=== PATIENT | female | born 1955 | race Two or more races ===

== ENCOUNTER 2020-07-10 15:55 | Emergency (ER) | payer MEDICARE, SELFPAY ==
[2020-07-10 16:18] VITALS: BP 149/84; PULSE 81; RESP 16; TEMP 36.9; O2SAT 99; BMI 22.6
--- NOTE | 2020-07-10 20:32 | CT_ITS ---
EXAMINATION: CT HEAD WITHOUT CONTRAST CLINICAL INFORMATION: Headache COMPARISON: CT head 09/10/2011 TECHNIQUE: Contiguous axial imaging was performed from the skull base to vertex without intravenous administration of contrast. Coronal and sagittal reformatted images are performed at the CT scanner This CT examination was performed using dose optimization techniques as appropriate, variously including the following: *Automated exposure control *Adjustment of mA and/or kV according to patient size (this includes techniques or standardized protocols for targeted exams where dose is matched to indication/reason for exam; i.e. extremities or head) *Use of iterative reconstruction technique DLP: 622 mGy-cm FINDINGS: There is no evidence of acute intracranial hemorrhage or territorial infarction. No abnormal mass effect or midline shift is seen. Herrera to white matter differentiation is well preserved. No extra-axial fluid collections are identified. The ventricles are normal in size. There is no abnormal attenuation within the brain parenchyma. The osseous structures and soft tissues are normal. The mastoid air cells and visualized portions of the paranasal sinuses are well aerated. CT/CT head/brain wo con IMPRESSION: No acute intracranial pathology.
--- NOTE | 2020-07-10 20:32 | XR_ITS ---
EXAMINATION: XR CHEST PORTABLE CLINICAL INFORMATION: 64-year-old female patient with chest pain. COMPARISON: Chest x-ray on 08/29/2019. (Normal). TECHNIQUE: AP portable semierect view of the chest was obtained. The time of examination was 8:40 PM. FINDINGS: The heart is normal in size. Lungs are clear showing no evidence of congestion or edema. No pleural effusion is seen. There is some thoracic scoliosis. XR/XR chest 1V IMPRESSION: No acute disease in the chest.
--- NOTE | 2020-07-10 20:33 | ECG_ITS ---
Test Reason : CP Blood Pressure : / mmHG Vent. Rate : 062 BPM Atrial Rate : 062 BPM P-R Int : 174 ms QRS Dur : 078 ms QT Int : 438 ms P-R-T Axes : 063 011 026 degrees QTc Int : 444 ms Normal sinus rhythm Low voltage QRS Normal ECG when compared to EKG of 08/29/19 no significant change Referred By: Barbra Small Electronically Signed By:ALBER JAMES MD
--- NOTE | 2020-07-10 20:36 | ED.GENADULT ---
HPI - General Adult General Chief complaint: General Medical Stated complaint: arm and leg numbness head pain Time Seen by Provider: 07/10/20 20:13 History of Present Illness HPI narrative: Patient is a 64-year-old female presents today with having chest pain that is on the left chest 1-2 seconds sharp. Patient denies any history of travel. No leg pain. No history of blood clots. No history of clotting disorder. Patient denies any history of smoking, diabetes, hypertension, mi, family history of [place]. Also complaining of a alters sensation numbness over the left arm more so in the thumb side. Also having numbness deep inside the left leg. Patient denies any difficulty ambulating. Denies any change in speech. No numbness in the head. Patient did have a mild headache that is diffuse. Denies any recent travel. No coughing or congestion or upper respiratory symptoms. No diaphoresis. patient's chest pain not associated with any shortness of breath. Related Data Allergies Allergy/AdvReac Type Severity Reaction Status Date / Time No Known Allergies Allergy Unverified 05/16/20 18:00 Review of Systems Review of Systems: No fever no chills no coughing or congestion or upper respiratory symptoms Constitutional: No Weight loss, No Fever, No Chills, No Night Sweats, No Fatigue, No Malaise ENT/Mouth: No Hearing loss, No Ear Pain, No Nasal Congestion, No Sinus Pain, No Hoarseness, No sore throat, No Rhinorrhea, No Swallowing Difficulty Eyes: No Eye Pain, No Swelling, No Redness, No Foreign Body, No Discharge, No Vision Changes Cardiovascular: positiveChest Pain, No SOB, No Dyspnea on Exertion, No Orthopnea, No Edema, No Palpitations Respiratory: No Cough, No Sputum, No Wheezing, No Smoke Exposure, No Dyspnea Gastrointestinal: No Nausea, No Vomiting, No Diarrhea, No Constipation, No abdominal Pain, No Hematochezia, No Melena Genitourinary: no irregular bleeding, No Dysuria, No Urinary Frequency, No Hematuria, No Urinary Incontinence, No Urgency, No Flank Pain, No Urinary Flow Changes, No Hesitancy Musculoskeletal: No joint pain, No Myalgias, No Joint Swelling Skin: No Skin Lesions, No rash Neuro: No Weakness, No Numbness, No Paresthesias, No Loss of Consciousness, No Dizziness, No Headache Psych: No Anxiety/Panic, No Depression, No SI/HI/AH/VH, No Social Issues, Heme/Lymph: No Bruising, No Bleeding,No Lymphadenopathy Endocrine: No Polyuria, No Polydipsia, No Temperature Intolerance [facility] Past Medical History Attestation statement: The following information was validated with the patient. Medical History Tachycardia Social History Social History Advance Directives: No Advance Directives Information Provided: Yes Physical Exam Vital Signs: Vital Signs: Last Vital Signs Temp 98.5 F 07/10/20 16:18 Pulse 63 07/10/20 22:28 Resp 16 07/10/20 22:28 BP 123/71 07/10/20 22:28 Pulse Ox 99 07/10/20 22:28 Body Mass Index 22.6 Appearance: Alert. Oriented X3. No acute distress. Eyes: Pupils equal, round and reactive to light. ENT: Pharynx normal. Neck: Normal inspection. Neck supple. No lymph nodes noted. No crepitus CVS: Normal heart rate and rhythm. Pulses normal. Normal S1 and S2 Respiratory: No respiratory distress. Breath sounds normal. No Wheezing. No rales Abdomen: Soft and nontender. No rigidity. No distention. good BS x4 Skin: Skin warm and dry. Normal skin color. Normal skin turgor. Extremities: No lower extremity edema. Neurovascular intact to all extremities. No Lacerations. No Rash Neuro: Oriented X 3. No motor deficit. No sensory deficit. Moving all extermities. No slurred speech. NIH stroke scale is 0. Medical Decision Making MDM Narrative Medical decision making narrative: Patient's chest pain atypical for ACS. 1-2 seconds. Nonspecific. Patient's cardiac enzyme was negative. Heart score is less than 3 making ACS unlikely. Patient's D-dimer less than 200 unlikely to be secondary to PE. CT scan of the head was grossly negative for any acute evidence of bleeding. No gross evidence of ischemia. Patient's pain atypical exam normal and IH score is 0. Will have patient follow-up for her chest pain. Patient's chest x-ray showed no evidence of pneumonia, pneumothorax. Will discharge patient home currently in stable condition. Medical Records Medical records reviewed: Yes I reviewed the patient's medical records. Lab Data Lab results reviewed: Yes I reviewed the patient's lab results. Result diagrams: 07/10/20 21:20 07/10/20 21:20 Labs: Lab Results 07/10/20 07/10/20 07/10/20 Range/Units 21:20 21:20 21:20 WBC (4.8-10.8) X10*3/uL RBC (4.20-5.50) X10*6/uL Hgb (12.0-16.0) g/dl Hct (37-47) % MCV (80-98) fL MCH (27.0-33.0) pg MCHC (31.0-35.0) g/dl RDW (11.0-16.0) % Plt Count (160-400) X10*3/uL MPV (9.4-12.3) fL Immature Gran % (Auto) (0.0-0.4) % Neut % (Auto) (45-73) % Lymph % (Auto) (20-40) % [place] % (Auto) (2-11) % Eos % (Auto) (0-4) % Baso % (Auto) (0-2) % Lymph # (Auto) (1.2-4.9) X10*3/uL [place] # (Auto) (0.1-1.2) X10*3/uL Eos # (Auto) (0.0-0.4) X10*3/uL Baso # (Auto) (0.0-0.2) X10*3/uL Abs Immat Gran (auto) (0.00-0.03) X10*3/uL Absolute Neuts (auto) (2.0-8.3) X10*3/uL Absolute Nucleated RBC (0.0-0.012) X10*3/uL Nucleated RBC % (auto) (0.0-0.2) /100WBC PT 12.1 (10.8-13.0) SEC INR 1.0 (0.9-1.1) D-Dimer < 200 NG/ML Sodium (135-145) mmol/L Potassium (3.3-5.1) mmol/l Chloride (96-108) mmol/L Carbon Dioxide (22-29) mmol/L Anion Gap (12-20) BUN (9-16) mg/dL Creatinine (0.5-1.4) mg/dL Estim Creat Clear Calc Estimated GFR Random Glucose (60-115) mg/dL Calcium (8.4-10.2) mg/dL Magnesium 2.1 (1.6-2.6) mg/dL Total Bilirubin 0.7 (0.0-1.0) mg/dL Direct Bilirubin 0.2 (0.0-0.5) mg/dL AST 14 (5-31) U/L ALT 15 (0-31) U/L Alkaline Phosphatase 53 (39-117) U/L Troponin I High Sens < 3.5 (<3.5-17.0) ng/L Total Protein 7.2 (6.5-8.0) g/dL Albumin 4.9 (3.5-5.0) g/dL 07/10/20 07/10/20 Range/Units 21:20 21:20 WBC 5.9 (4.8-10.8) X10*3/uL RBC 4.15 L (4.20-5.50) X10*6/uL Hgb 12.5 (12.0-16.0) g/dl Hct 37.4 (37-47) % MCV 90.1 (80-98) fL MCH 30.1 (27.0-33.0) pg MCHC 33.4 (31.0-35.0) g/dl RDW 12.9 (11.0-16.0) % Plt Count 273 (160-400) X10*3/uL MPV 9.3 L (9.4-12.3) fL Immature Gran % (Auto) 0.3 (0.0-0.4) % Neut % (Auto) 58.6 (45-73) % Lymph % (Auto) 31.9 (20-40) % [place] % (Auto) 4.9 (2-11) % Eos % (Auto) 3.5 (0-4) % Baso % (Auto) 0.8 (0-2) % Lymph # (Auto) 1.9 (1.2-4.9) X10*3/uL [place] # (Auto) 0.3 (0.1-1.2) X10*3/uL Eos # (Auto) 0.2 (0.0-0.4) X10*3/uL Baso # (Auto) 0.1 (0.0-0.2) X10*3/uL Abs Immat Gran (auto) 0.02 (0.00-0.03) X10*3/uL Absolute Neuts (auto) 3.5 (2.0-8.3) X10*3/uL Absolute Nucleated RBC 0.000 (0.0-0.012) X10*3/uL Nucleated RBC % (auto) 0.0 (0.0-0.2) /100WBC PT (10.8-13.0) SEC INR (0.9-1.1) D-Dimer NG/ML Sodium 142 (135-145) mmol/L Potassium 4.0 (3.3-5.1) mmol/l Chloride 102 (96-108) mmol/L Carbon Dioxide 28 (22-29) mmol/L Anion Gap 16 (12-20) BUN 11 (9-16) mg/dL Creatinine 0.82 (0.5-1.4) mg/dL Estim Creat Clear Calc 64.9 Estimated GFR > 60 Random Glucose 92 (60-115) mg/dL Calcium 9.5 (8.4-10.2) mg/dL Magnesium (1.6-2.6) mg/dL Total Bilirubin (0.0-1.0) mg/dL Direct Bilirubin (0.0-0.5) mg/dL AST (5-31) U/L ALT (0-31) U/L Alkaline Phosphatase (39-117) U/L Troponin I High Sens (<3.5-17.0) ng/L Total Protein (6.5-8.0) g/dL Albumin (3.5-5.0) g/dL ECG Data Interpretation: Sinus heart rate is 60 MA interval, QRS,QT within normal limits is no acute ST segment elevation noted.
[2020-07-10 21:26] LABS: MANUAL DIFF FLAG NO
[2020-07-10 21:27] LABS: Basophils Absolute Auto 0.1 X10*3/uL (0.0-0.2); Basophils Percent Auto 0.8 % (0-2); Eosinophils Absolute Auto 0.2 X10*3/uL (0.0-0.4); Eosinophils Percent Auto 3.5 % (0-4); Hematocrit 37.4 % (37-47); Hemoglobin 12.5 g/dl (12.0-16.0); Imm Gran Abs Auto 0.02 X10*3/uL (0.00-0.03); Imm Gran Pct Auto 0.3 % (0.0-0.4); Lymphocytes Absolute Auto 1.9 X10*3/uL (1.2-4.9); Lymphocytes Percent Auto 31.9 % (20-40); Mean Corpuscular HGB Conc 33.4 g/dl (31.0-35.0); Mean Corpuscular Hemoglobin 30.1 pg (27.0-33.0); Mean Corpuscular Volume 90.1 fL (80-98); Mean Platelet Volume 9.3 fL (9.4-12.3); Monocytes Absolute Auto 0.3 X10*3/uL (0.1-1.2); Monocytes Percent Auto 4.9 % (2-11); Neutrophils Absolute Auto 3.5 X10*3/uL (2.0-8.3); Neutrophils Percent Auto 58.6 % (45-73); Platelet Count 273 X10*3/uL (160-400); Red Blood Count 4.15 X10*6/uL (4.20-5.50); Red Cell Distribution Width 12.9 % (11.0-16.0); White Blood Count 5.9 X10*3/uL (4.8-10.8)
[2020-07-10 21:34] LABS: Prothrombin Time 12.1 SEC (10.8-13.0)
[2020-07-10 21:39] LABS: D Dimer < 200 NG/ML
[2020-07-10 22:07] LABS: Anion Gap 16 (12-20); Blood Urea Nitrogen 11 mg/dL (9-16); Calcium 9.5 mg/dL (8.4-10.2); Carbon Dioxide 28 mmol/L (22-29); Chloride 102 mmol/L (96-108); Creatinine Clr Calc Pharmacy 64.9; Estimated Glomerular Filt Rate > 60; Glucose Random 92 mg/dL (60-115); Sodium 142 mmol/L (135-145)
[2020-07-10 22:08] LABS: Alanine Aminotransferase 15 U/L (0-31); Albumin Level 4.9 g/dL (3.5-5.0); Alkaline Phosphatase 53 U/L (39-117); Aspartate Amino Transferase 14 U/L (5-31); Bilirubin Direct 0.2 mg/dL (0.0-0.5); Bilirubin Total 0.7 mg/dL (0.0-1.0); Magnesium 2.1 mg/dL (1.6-2.6); Total Protein 7.2 g/dL (6.5-8.0)
[2020-07-10 22:15] LABS: Troponin-I High Sensitivity < 3.5 ng/L (<3.5-17.0)
[2020-07-10 22:28] VITALS: BP 123/71; PULSE 63; RESP 16; O2SAT 99
--- NOTE | 2020-07-10 23:30 | ED.GENADULT ---
HPI - General Adult General Chief complaint: General Medical Stated complaint: arm and leg numbness head pain Time Seen by Provider: 07/10/20 20:13 History of Present Illness HPI narrative: Patient well-appearing CT scan the head was grossly negative for any acute evidence of bleeding. No fracture. Patient is neurologically intact. NIH stroke scale was 0. Numbness in the upper extremities more focus on the thumb side of left arm. The lower extremity numbness is more in the middle. Patient claims she is able to ambulate with a normal gait. Has no focal weakness. No change in speech. No change in swallowing eating. Patient was actually texting in the emergency department without any distress. Will discharge patient home. Close follow-up outpatient basis. Question paresthesia. In stable condition Related Data Allergies Allergy/AdvReac Type Severity Reaction Status Date / Time No Known Allergies Allergy Unverified 05/16/20 18:00 [facility] Past Medical History Medical History Tachycardia Social History Social History Smoked in Last 30 Days: No Use of substances other than those prescribed or required for medical reasons: No Advance Directives: No Advance Directives Information Provided: Yes Physical Exam Vital Signs: Vital Signs: Last Vital Signs Temp 98.5 F 07/10/20 16:18 Pulse 63 07/10/20 22:28 Resp 16 07/10/20 22:28 BP 123/71 07/10/20 22:28 Pulse Ox 99 07/10/20 22:28 Body Mass Index 22.6 Medical Decision Making Lab Data Result diagrams: 07/10/20 21:20 07/10/20 21:20 Labs: Lab Results 07/10/20 07/10/20 07/10/20 Range/Units 21:20 21:20 21:20 WBC (4.8-10.8) X10*3/uL RBC (4.20-5.50) X10*6/uL Hgb (12.0-16.0) g/dl Hct (37-47) % MCV (80-98) fL MCH (27.0-33.0) pg MCHC (31.0-35.0) g/dl RDW (11.0-16.0) % Plt Count (160-400) X10*3/uL MPV (9.4-12.3) fL Immature Gran % (Auto) (0.0-0.4) % Neut % (Auto) (45-73) % Lymph % (Auto) (20-40) % [place] % (Auto) (2-11) % Eos % (Auto) (0-4) % Baso % (Auto) (0-2) % Lymph # (Auto) (1.2-4.9) X10*3/uL [place] # (Auto) (0.1-1.2) X10*3/uL Eos # (Auto) (0.0-0.4) X10*3/uL Baso # (Auto) (0.0-0.2) X10*3/uL Abs Immat Gran (auto) (0.00-0.03) X10*3/uL Absolute Neuts (auto) (2.0-8.3) X10*3/uL Absolute Nucleated RBC (0.0-0.012) X10*3/uL Nucleated RBC % (auto) (0.0-0.2) /100WBC PT 12.1 (10.8-13.0) SEC INR 1.0 (0.9-1.1) D-Dimer < 200 NG/ML Sodium (135-145) mmol/L Potassium (3.3-5.1) mmol/l Chloride (96-108) mmol/L Carbon Dioxide (22-29) mmol/L Anion Gap (12-20) BUN (9-16) mg/dL Creatinine (0.5-1.4) mg/dL Estim Creat Clear Calc Estimated GFR Random Glucose (60-115) mg/dL Calcium (8.4-10.2) mg/dL Magnesium 2.1 (1.6-2.6) mg/dL Total Bilirubin 0.7 (0.0-1.0) mg/dL Direct Bilirubin 0.2 (0.0-0.5) mg/dL AST 14 (5-31) U/L ALT 15 (0-31) U/L Alkaline Phosphatase 53 (39-117) U/L Troponin I High Sens < 3.5 (<3.5-17.0) ng/L Total Protein 7.2 (6.5-8.0) g/dL Albumin 4.9 (3.5-5.0) g/dL 07/10/20 07/10/20 Range/Units 21:20 21:20 WBC 5.9 (4.8-10.8) X10*3/uL RBC 4.15 L (4.20-5.50) X10*6/uL Hgb 12.5 (12.0-16.0) g/dl Hct 37.4 (37-47) % MCV 90.1 (80-98) fL MCH 30.1 (27.0-33.0) pg MCHC 33.4 (31.0-35.0) g/dl RDW 12.9 (11.0-16.0) % Plt Count 273 (160-400) X10*3/uL MPV 9.3 L (9.4-12.3) fL Immature Gran % (Auto) 0.3 (0.0-0.4) % Neut % (Auto) 58.6 (45-73) % Lymph % (Auto) 31.9 (20-40) % [place] % (Auto) 4.9 (2-11) % Eos % (Auto) 3.5 (0-4) % Baso % (Auto) 0.8 (0-2) % Lymph # (Auto) 1.9 (1.2-4.9) X10*3/uL [place] # (Auto) 0.3 (0.1-1.2) X10*3/uL Eos # (Auto) 0.2 (0.0-0.4) X10*3/uL Baso # (Auto) 0.1 (0.0-0.2) X10*3/uL Abs Immat Gran (auto) 0.02 (0.00-0.03) X10*3/uL Absolute Neuts (auto) 3.5 (2.0-8.3) X10*3/uL Absolute Nucleated RBC 0.000 (0.0-0.012) X10*3/uL Nucleated RBC % (auto) 0.0 (0.0-0.2) /100WBC PT (10.8-13.0) SEC INR (0.9-1.1) D-Dimer NG/ML Sodium 142 (135-145) mmol/L Potassium 4.0 (3.3-5.1) mmol/l Chloride 102 (96-108) mmol/L Carbon Dioxide 28 (22-29) mmol/L Anion Gap 16 (12-20) BUN 11 (9-16) mg/dL Creatinine 0.82 (0.5-1.4) mg/dL Estim Creat Clear Calc 64.9 Estimated GFR > 60 Random Glucose 92 (60-115) mg/dL Calcium 9.5 (8.4-10.2) mg/dL Magnesium (1.6-2.6) mg/dL Total Bilirubin (0.0-1.0) mg/dL Direct Bilirubin (0.0-0.5) mg/dL AST (5-31) U/L ALT (0-31) U/L Alkaline Phosphatase (39-117) U/L Troponin I High Sens (<3.5-17.0) ng/L Total Protein (6.5-8.0) g/dL Albumin (3.5-5.0) g/dL Discharge Plan Discharge Clinical Impression: Chest pain, Arm paresthesia, left Patient Disposition: Home, Self-Care Instructions: Chest Pain (ED), Paresthesia (ED) Referrals: Jordan Montesinos MD [Primary Care Provider] - 2 days Interventions: ED Discharge Assessment Last Done: 07/10/20 23:35 Discharge Date/Time: 07/10/20 23:41 Print Language: Indonesian
== END 2020-07-10 23:41 | disposition home or self-care (01) ==
PROVIDERS: Emergency Provider Emergency Medicine Emergency Medical Services; PCP Internal Medicine
DX: R20.0 Anesthesia of skin (principal); R51.9 Headache, unspecified; M79.602 Pain in left arm
CPT/HCPCS: 36415; 70450; 71045; 80048; 80076; 83735; 84484; 85025; 85379; 85610; 93005; 99284

== ENCOUNTER 2020-07-15 11:44 | Emergency (ER) | payer MEDICARE, SELFPAY ==
--- NOTE | 2020-07-15 | ECG_ITS ---
Test Reason : CP Blood Pressure : / mmHG Vent. Rate : 074 BPM Atrial Rate : 074 BPM P-R Int : 166 ms QRS Dur : 084 ms QT Int : 396 ms P-R-T Axes : 066 -03 050 degrees QTc Int : 439 ms Normal sinus rhythm Normal ECG When compared with ECG of 10-JUL-2020 21:13, No significant change was found Referred By: Generic ED Physician Electronically Signed By:ALBER JAMES MD
[2020-07-15 12:00] VITALS: BP 104/59; PULSE 70; RESP 18; TEMP 36.9; O2SAT 99; BMI 24.0
--- NOTE | 2020-07-15 12:11 | ED.CHESTPAIN ---
HPI - Chest Pain General Chief Complaint: Chest Pain Stated Complaint: CP X'S 8 DAYS ON /OFF, SEEN REC FOR SAME Time Seen by Provider: 07/15/20 12:11 Source: patient Mode of arrival: ambulatory Limitations: no limitations History of Present Illness HPI narrative: 64-year-old primarily Emirati-speaking female with history of hyperlipidemia, chronic back pain in the setting of degenerative disc disease/osteoarthritis according to the patient as well as chronic neck pain, anemia who reports today she has been having left-sided chest pain which radiates to the left arm stays she was seen left arm ?tingling sensation 5 started in the left chest today she spoke to a friend and told that it could be something serious going on and this very anxious and came in for this. She denies any lower extremity swelling or pain. No headache. Does have history of chronic of back pain and neck pain which she reports she sees her GP for and PT. no recent URI symptoms, cough or fever. MD complaint: chest pain and chest discomfort Prior episodes: Yes Onset: during rest Pain location: left chest Pain radiation: left arm Severity: mild Quality: aching Relieving factors: rest Exacerbating factors: palpation and movement Treatment prior to arrival: none Risk Factors Coronary artery disease risk factors: hyperlipidemia Thoracic aortic dissection risk factors: none Related Data Previous Rx's Medication Instructions Recorded cyclobenzaprine 5 mg PO TID PRN #20 tab 07/15/20 prednisone 40 mg PO DAILY 5 Days #10 tab 07/15/20 Allergies Allergy/AdvReac Type Severity Reaction Status Date / Time No Known Allergies Allergy Unverified 05/16/20 18:00 Review of Systems Review of Systems: Constitutional: No Weight loss, No Fever, No Chills, No Night Sweats, No Fatigue, No Malaise ENT/Mouth: No Hearing loss, No Ear Pain, No Nasal Congestion, No Sinus Pain Eyes: No Eye Pain, No Swelling, No Redness, No Foreign Body, No Discharge, No Vision Changes Cardiovascular: + Chest Pain, No SOB, No Dyspnea on Exertion, No Orthopnea, No Edema, No Palpitations Respiratory: No Cough, No Sputum, No Wheezing, No Smoke Exposure, No Dyspnea Gastrointestinal: No Nausea, No Vomiting, No Diarrhea, No Constipation, No abdominal Pain, No Hematochezia, No Melena Genitourinary: no irregular bleeding, No Dysuria, No Urinary Frequency, No Hematuria, No Urinary Incontinence, No Urgency, No Flank Pain Musculoskeletal: No joint pain, No Myalgias, No Joint Swelling Skin: No Skin Lesions, No rash Neuro: No Weakness, No Numbness, +left side Paresthesias, No Loss of Consciousness, No Dizziness, No Headache Psych: No Anxiety/Panic, No Depression Heme/Lymph: No Bruising, No Bleeding,No Lymphadenopathy Endocrine: No Polyuria, No Polydipsia, No Temperature Intolerance Yes all other systems are reviewed and are negative [facility] Past Medical History Medical History (Updated 07/15/20 @ 14:55 by Miguel Hahn NP) Herniated disc Tachycardia Social History Social History Alcohol intake: never Smoking Status: Heavy tobacco smoker Smoked in Last 30 Days: No Use of substances other than those prescribed or required for medical reasons: No Any prior treatment program specific to substance use: No Advance Directives: No Advance Directives Information Provided: No Physical Exam Vital Signs: Vital Signs: Last Vital Signs Temp 98.5 F 07/15/20 12:00 Pulse 88 07/15/20 14:00 Resp 15 07/15/20 14:00 BP 100/68 07/15/20 14:00 Pulse Ox 98 07/15/20 14:00 Body Mass Index 24.0 Reviewed Const: General: cooperative and healthy appearing; No acute distress or intoxicated appearing Nutritional Appearance: average body habitus Orientation/consciousness: patient oriented x3 HENMT: Head: Yes normal to inspection Ears: hearing grossly normal bilaterally Eyes: General: appearance normal, both eyes and all related structures Visual Bruno: normal visual burno by confrontation Pupils: Equal, round and reactive pupils present Neck: Neck: Yes normal visual inspection, No positive Brudzinski's sign, No positive Kernig's sign and No tender Thyroid: Thyroid normal 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 ) Resp: Effort & Inspection: normal respiratory effort Cardio: Jugular venous distension: no JVD Rate: regular rate GI: Inspection: Yes normal to inspection Percussion: Yes normal to percussion Auscultation: normal bowel sounds : General: Yes no CVA tenderness Back/Spine/Pelvis: Back: no CVA tenderness Skin: General skin exam: no rashes or lesions noted Neuro: Other: NIH score 0, stroke scale negative General: patient oriented x3 Cranial nerves: Yes CN's II-XII intact bilaterally, Yes Facial sensation intact/muscles of mastication intact and Yes Equal, round and reactive pupils present Cognition (Neuro): normal cognition Gait exam (Neuro): Normal gait present Motor exam (neuro): 5/5 motor strength present throughout and Normal motor muscle tone present throughout Extrem: General: Yes normal to inspection MDM - Chest Pain Differential Diagnosis Differential diagnosis: Likely atypical chest pain, costochondritis and chest pain; Unlikely fracture of rib, pneumothorax, stable angina, unstable angina pectoris, st elevation myocardial infarction and biliary colic Medical Records Data Attestation: I reviewed the patient's medical records. Lab Data Attestation: I reviewed the patient's lab results. Result diagrams: 07/15/20 12:57 07/15/20 12:57 Labs: Lab Results 07/15/20 07/15/20 07/15/20 Range/Units 12:57 12:57 12:57 WBC 4.1 L (4.8-10.8) X10*3/uL RBC 4.09 L (4.20-5.50) X10*6/uL Hgb 12.4 (12.0-16.0) g/dl Hct 36.9 L (37-47) % MCV 90.2 (80-98) fL MCH 30.3 (27.0-33.0) pg MCHC 33.6 (31.0-35.0) g/dl RDW 13.1 (11.0-16.0) % Plt Count 253 (160-400) X10*3/uL MPV 9.8 (9.4-12.3) fL Immature Gran % (Auto) 0.5 H (0.0-0.4) % Neut % (Auto) 57.6 (45-73) % Lymph % (Auto) 29.7 (20-40) % [place] % (Auto) 5.9 (2-11) % Eos % (Auto) 5.1 H (0-4) % Baso % (Auto) 1.2 (0-2) % Lymph # (Auto) 1.2 (1.2-4.9) X10*3/uL [place] # (Auto) 0.2 (0.1-1.2) X10*3/uL Eos # (Auto) 0.2 (0.0-0.4) X10*3/uL Baso # (Auto) 0.1 (0.0-0.2) X10*3/uL Abs Immat Gran (auto) 0.02 (0.00-0.03) X10*3/uL Absolute Neuts (auto) 2.4 (2.0-8.3) X10*3/uL Absolute Nucleated RBC 0.000 (0.0-0.012) X10*3/uL Nucleated RBC % (auto) 0.0 (0.0-0.2) /100WBC Sodium 140 (135-145) mmol/L Potassium 4.4 (3.3-5.1) mmol/l Chloride 105 (96-108) mmol/L Carbon Dioxide 27 (22-29) mmol/L Anion Gap 12 (12-20) BUN 12 (9-16) mg/dL Creatinine 0.84 (0.5-1.4) mg/dL Estim Creat Clear Calc 58.4 Estimated GFR > 60 Random Glucose 104 (60-115) mg/dL Calcium 9.4 (8.4-10.2) mg/dL Magnesium 2.1 (1.6-2.6) mg/dL Total Bilirubin 0.7 (0.0-1.0) mg/dL AST 15 (5-31) U/L ALT 16 (0-31) U/L Alkaline Phosphatase 48 (39-117) U/L Troponin I High Sens < 3.5 (<3.5-17.0) ng/L Total Protein 7.0 (6.5-8.0) g/dL Albumin 4.8 (3.5-5.0) g/dL TSH 1.17 (0.32-4.0) uIU/mL Workup reviewed from previous visit 5 days ago she had a negative tropes as well as negative D-dimer and essentially stable workup. History of chronic neck pain, chronic back pain history of these paresthesias in the past well documented on her other visits dating back to 2017 18 19, this seems chronic in nature. Workup overall stable here repeat troponin negative labs overall stable. She has no focal neurological findings. I do suspect component of anxiety. She will follow-up with her primary care doctor given the radiculopathy can consider MRI on a nonemergent basis. Findings reviewed in detail and agreeable. ABG Data Attestation: I personally reviewed and interpreted this ABG as follows: Discharge Plan Discharge Clinical Impression: Radiculopathy affecting upper extremity Chest pain Qualifiers: Chest pain type: precordial pain Qualified Code(s): R07.2 - Precordial pain Patient Disposition: Home, Self-Care Instructions: Cervical Radiculopathy (ED), Noncardiac Chest Pain (ED), Anxiety (ED) Prescriptions: New prednisone 20 mg tablet 40 mg PO DAILY 5 Days Qty: 10 RF: 0 cyclobenzaprine 10 mg tablet 5 mg PO TID PRN (Reason: muscle spasm) Qty: 20 RF: 0 Referrals: Physician,Unknown [Primary Care Provider] - 1 week (Your primary care doctor at the [facility] ) Interventions: ED Discharge Assessment Last Done: 07/15/20 15:11 Discharge Date/Time: 07/15/20 15:12
[2020-07-15 12:59] VITALS: PULSE 72
[2020-07-15 13:03] LABS: MANUAL DIFF FLAG NO
[2020-07-15 13:23] LABS: Basophils Absolute Auto 0.1 X10*3/uL (0.0-0.2); Basophils Percent Auto 1.2 % (0-2); Eosinophils Absolute Auto 0.2 X10*3/uL (0.0-0.4); Eosinophils Percent Auto 5.1 % (0-4); Hematocrit 36.9 % (37-47); Hemoglobin 12.4 g/dl (12.0-16.0); Imm Gran Abs Auto 0.02 X10*3/uL (0.00-0.03); Imm Gran Pct Auto 0.5 % (0.0-0.4); Lymphocytes Absolute Auto 1.2 X10*3/uL (1.2-4.9); Lymphocytes Percent Auto 29.7 % (20-40); Mean Corpuscular HGB Conc 33.6 g/dl (31.0-35.0); Mean Corpuscular Hemoglobin 30.3 pg (27.0-33.0); Mean Corpuscular Volume 90.2 fL (80-98); Mean Platelet Volume 9.8 fL (9.4-12.3); Monocytes Absolute Auto 0.2 X10*3/uL (0.1-1.2); Monocytes Percent Auto 5.9 % (2-11); Neutrophils Absolute Auto 2.4 X10*3/uL (2.0-8.3); Neutrophils Percent Auto 57.6 % (45-73); Platelet Count 253 X10*3/uL (160-400); Red Blood Count 4.09 X10*6/uL (4.20-5.50); Red Cell Distribution Width 13.1 % (11.0-16.0); White Blood Count 4.1 X10*3/uL (4.8-10.8)
[2020-07-15 13:33] LABS: Alanine Aminotransferase 16 U/L (0-31); Albumin Level 4.8 g/dL (3.5-5.0); Alkaline Phosphatase 48 U/L (39-117); Anion Gap 12 (12-20); Aspartate Amino Transferase 15 U/L (5-31); Bilirubin Total 0.7 mg/dL (0.0-1.0); Blood Urea Nitrogen 12 mg/dL (9-16); Calcium 9.4 mg/dL (8.4-10.2); Carbon Dioxide 27 mmol/L (22-29); Chloride 105 mmol/L (96-108); Creatinine Clr Calc Pharmacy 58.4; Estimated Glomerular Filt Rate > 60; Glucose Random 104 mg/dL (60-115); Magnesium 2.1 mg/dL (1.6-2.6); Potassium 4.4 mmol/l (3.3-5.1); Sodium 140 mmol/L (135-145)
[2020-07-15 13:39] LABS: Troponin-I High Sensitivity < 3.5 ng/L (<3.5-17.0)
[2020-07-15 13:54] LABS: Thyroid Stimulating Hormone 1.17 uIU/mL (0.32-4.0)
[2020-07-15 14:00] VITALS: BP 100/68; PULSE 88; RESP 15; O2SAT 98
--- NOTE | 2020-07-15 14:02 | XR_ITS ---
EXAMINATION: XR CHEST CLINICAL INFORMATION: Chest wall pain COMPARISON: 07/10/2020 TECHNIQUE: Frontal view of the chest was obtained. FINDINGS: Cardiac leads overlie the chest. The lungs are well expanded. There is no focal consolidation, edema, or effusion. No pneumothorax. The cardiomediastinal silhouette is within normal limits. No acute osseous abnormality. XR/XR chest 1V IMPRESSION: No acute pulmonary finding.
== END 2020-07-15 15:12 | disposition home or self-care (01) ==
PROVIDERS: Nurse Practitioner Primary Care; Emergency Provider Emergency Medicine
DX: M54.10 Radiculopathy, site unspecified (principal); R07.2 Precordial pain; M79.602 Pain in left arm; F17.200 Nicotine dependence, unspecified, uncomplicated; Z71.6 Tobacco abuse counseling; Z79.899 Other long term (current) drug therapy
CPT/HCPCS: 36415; 71045; 80053; 83735; 84443; 84484; 85025; 93005; 99283; 99284

== ENCOUNTER 2020-09-17 12:19 | Outpatient (REF) | payer MEDICARE, SELFPAY ==
--- NOTE | 2020-09-17 | MM_ITS ---
EXAMINATION: MM SCREENING DIGITAL BREAST TOMOSYNTHESIS, BILATERAL CLINICAL INFORMATION: Screening. Asymptomatic. The lifetime risk of breast cancer based on the Tyrer-Cuzick Model is 5.0%. COMPARISON: Mammography: April 14, 2019 and studies dating back to August 17, 2012 TECHNIQUE: Digital breast tomosynthesis is performed in both the craniocaudal and mediolateral oblique views along with computer-aided detection (CAD). Synthesized 2D images are generated from the tomosynthesis. Right exaggerated craniocaudal view also performed. FINDINGS: There are scattered areas of fibroglandular density (ACR BI-RADS breast composition Category b). There are no significant masses, abnormal calcifications, or other abnormalities. MM/MM tomosynthesis screening BI IMPRESSION: There are no significant changes from prior study. ASSESSMENT: BI-RADS 1: Negative RECOMMENDATION: Routine annual mammography screening. This patient's information was entered into a reminder system with a target due date for their next mammogram.
== END 2020-09-17 12:20 | disposition home or self-care (01) ==
LOC: HO.MAMMO 12:19
PROVIDERS: PCP Internal Medicine; Visit Provider Internal Medicine
DX: Z12.31 Encounter for screening mammogram for malignant neoplasm of breast (principal)
CPT/HCPCS: 77063; 77067

== ENCOUNTER 2020-12-06 13:57 | Outpatient (REF) | payer MEDICARE, SELFPAY ==
--- NOTE | ~2020-12-06 | MR_ITS ---
EXAMINATION: MR BRAIN WITHOUT CONTRAST CLINICAL INFORMATION: Worsening memory impairment. COMPARISON: Head CT from 07/10/2020. TECHNIQUE: Multiplanar, multisequence imaging of the brain was performed without contrast. FINDINGS: No diffusion abnormalities are identified to suggest an acute or subacute infarct. The ventricles are normal in size. No mass effect or midline shift is seen. No brain parenchymal signal abnormality is noted. No extra-axial fluid collections are seen. The brainstem and cerebellum are normal. The gradient refocused acquisition is normal. The craniovertebral junction, marrow signal, and midline structures are normal. The major intracranial flow voids at the level of the [place] are preserved. The dural venous sinus flow voids are maintained. The mastoid air cells and paranasal sinuses are fairly well aerated. MR/MR head/brain wo con IMPRESSION: Relatively normal MRI of the brain. No acute process.
== END 2020-12-06 13:58 | disposition home or self-care (01) ==
LOC: HO.MRI 13:57
PROVIDERS: Visit Provider Internal Medicine
DX: R41.3 Other amnesia (principal)
CPT/HCPCS: 70551

== ENCOUNTER 2021-01-06 15:49 | Outpatient (REF) | payer MEDICARE, SELFPAY ==
[2021-01-06 17:19] LABS: Erythrocyte Sedimentation Rate 13 MM/HR (0-20)
[2021-01-06 17:24] LABS: Syphilis Screen Nonreactive (Nonreactive)
[2021-01-06 17:36] LABS: Folate 17.2 ng/mL (> or = 4.0); Vitamin B12 592 pg/mL (200-900)
[2021-01-07 08:51] LABS: Lyme Abs Screen <0.90 index
[2021-01-09 13:46] LABS: Anti Nuclear Antibody Screen NEGATIVE (NEGATIVE)
== END 2021-01-06 15:50 | disposition home or self-care (01) ==
LOC: HO.LAB 15:49
PROVIDERS: PCP Internal Medicine; Visit Provider Psychiatry & Neurology Neurology
DX: G93.40 Encephalopathy, unspecified (principal)
CPT/HCPCS: 36415; 82607; 82746; 85652; 86038; 86039; 86617; 86618; 86780

== ENCOUNTER 2021-01-14 10:28 | Outpatient (REF) | payer MEDICARE, SELFPAY ==
--- NOTE | ~2021-01-14 | XR_ITS ---
EXAMINATION: XR CHEST CLINICAL INFORMATION: Cough. COMPARISON: 07/15/2020 TECHNIQUE: Two views of the chest were obtained. FINDINGS: There is no evidence of acute parenchymal disease, pneumothorax, or pleural effusion. Heart normal size. No evidence of pulmonary edema. Mild scoliosis present within the thoracic spine convex right. XR/XR chest 2V IMPRESSION: No acute disease.
== END 2021-01-14 10:29 | disposition home or self-care (01) ==
LOC: HO.XRAY 10:28
PROVIDERS: Absent Provider Internal Medicine; PCP Internal Medicine; Visit Provider Emergency Medicine
DX: R05 Cough (principal)
CPT/HCPCS: 71046

== ENCOUNTER 2021-02-28 11:36 | Outpatient (REF) | payer MEDICARE, SELFPAY ==
--- NOTE | ~2021-02-28 | XR_ITS ---
EXAMINATION: XR CHEST CLINICAL INFORMATION: Chest pain COMPARISON: None TECHNIQUE: 2 views of the chest were obtained. FINDINGS: No significant abnormality is noted involving the heart, lungs, mediastinum, bony thorax or soft tissues. XR/XR chest 2V IMPRESSION: Unremarkable examination.
== END 2021-02-28 11:37 | disposition home or self-care (01) ==
LOC: HO.XRAY 11:36
PROVIDERS: Absent Provider Internal Medicine; PCP Internal Medicine; Visit Provider Emergency Medicine
DX: R07.89 Other chest pain (principal)
CPT/HCPCS: 71046

== ENCOUNTER 2022-01-28 11:02 | Emergency (ER) | payer MEDICARE, SELFPAY ==
--- NOTE | ~2022-01-28 | XR_ITS ---
EXAMINATION: XR LUMBOSACRAL SPINE CLINICAL INFORMATION: Back pain COMPARISON: Lumbar spine 03/13/2020 TECHNIQUE: Three views of the lumbosacral spine. FINDINGS: Lumbar vertebrae have normal height. No fracture or bone destruction. There is marked degenerative spondylosis of the facet joints at L4-L5 and L5-S1. Stable grade 1 anterolisthesis of L4 on L5 due to facet joint disease. This is unchanged since prior study 03/13/2020. There is no spondylolysis. Slight disc height narrowing at L4-L5. This has progressed since prior study 03/13/2020. Remainder of lumbar disc heights are normal. Sacroiliac joints are normal. XR/XR lumbar spine 2-3V IMPRESSION: 1. No acute abnormality. 2. Degenerative spondylosis of lumbar spine. Stable grade 1 anterolisthesis of L4 on L5 due to facet joint disease. 3. Slight disc height narrowing L4-L5. This has progressed since 03/13/2020.
[2022-01-28 11:40] VITALS: BP 152/80; PULSE 85; RESP 16; TEMP 36.9; O2SAT 98; BMI 23.8
--- NOTE | 2022-01-28 13:34 | ED.BACK ---
HPI - Back Pain/Injury General Chief Complaint: Back Pain/Injury Stated Complaint: back pain Time Seen by Provider: 01/28/22 12:45 Source: patient Mode of arrival: ambulatory Limitations: language barrier (Latvian-speaking declined medical affairs director prepared to use her daughter) History of Present Illness HPI Narrative: Patient reports sudden onset of acute on chronic lower back pain 9 days ago. Pain became worse when she stood up from a sitting position on the floor. Pain is across the diffuse lower back but the right is worse than the left and radiates intermittently down the bilateral legs. One week ago she was evaluated at a walk-in clinic and was given a prescription for Flexeril. She is only taking the Flexeril at bedtime in addition to her chronically prescribed Percocet for back pain. She states that she is able to sleep throughout the night without await Cruz. However the morning she does continue to have pain. She is only taking Tylenol during the day but the pain is not tolerable during the day. Denies having any urine testing or imaging done when evaluated 1 week ago. She reports a history of herniated discs in her lower back. Denies fevers, chills, burning with micturition, urinary frequency/urgency/hesitancy, bladder or bowel dysfunction, numbness or tingling of the perineum or bilateral legs. Denies any recent surgical procedures, any known immune compromising conditions, personal history of cancer, or IV drug usage. MD elicited complaint: back pain Related Data Previous Rx's Medication Instructions Recorded cyclobenzaprine 10 mg tablet 5 mg PO TID PRN #20 tab 07/15/20 prednisone 20 mg tablet 40 mg PO DAILY 5 Days #10 tab 07/15/20 Allergies Allergy/AdvReac Type Severity Reaction Status Date / Time No Known Allergies Allergy Unverified 05/16/20 18:00 Review of Systems Review of Systems: Constitutional: No weight loss, fever, chills, weakness or fatigue. HEENT: No visual loss, blurred vision, double vision. No hearing loss, sneezing, congestion, runny nose or sore throat. Skin: No rash or itching. Cardiovascular: No chest pain, chest pressure or chest discomfort. No palpitations or pedal edema. Respiratory: No shortness of breath, cough or sputum production. Gastrointestinal: No anorexia, nausea, vomiting or diarrhea. No abdominal pain or blood in stool. Genitourinary: No burning micturition. No urinary frequency or incontinence. Neurologic: No headache, dizziness, syncope, unilateral weakness, ataxia, numbness or tingling in the extremities. No change in bowel or bladder control. Musculoskeletal: + Back pain as noted in HPI. No joint pain or stiffness. Hematologic: No bleeding or bruising. Lymphatics: No enlarged lymph nodes. Psychiatric:No depression or anxiety. Endocrine: No reports of sweating. No cold or heat intolerance. No polyuria or polydipsia. [facility] Past Medical History Medical History (Updated 01/28/22 @ 16:38 by Liset De Leon CNP) Herniated disc Tachycardia Social History Social History Alcohol intake: never Advance Directives: No Advance Directives Information Provided: No Physical Exam Vital Signs: Vital Signs: Last Vital Signs Temp 98.2 F 01/28/22 15:52 Pulse 94 01/28/22 15:52 Resp 16 01/28/22 15:52 BP 110/67 01/28/22 15:52 Pulse Ox 99 01/28/22 15:52 BMI result Body Mass Index 23.8 Vital signs have been reviewed as normal and appeared to be correct. Blood pressure normal.? Heart rate normal.? Respiration rate normal. Temperature normal.? Oxygen saturation normal. Appearance: Alert.?Oriented to person, place and time. No acute distress.?Normal affect. Eyes: Pupils equal, round and reactive to light.? ENT: Pharynx normal.?? Neck: Normal inspection.? Neck supple.?? CVS: Heart sounds normal. Normal heart rate and rhythm.? Pulses normal; bilateral radial pulses 2+, bilateral posterior tibial/dorsalis pedis pulses 2+.? Respiratory: No respiratory distress.? Lung sounds clear to auscultation bilaterally?? Abdomen: Soft and non-tender. Normoactive bowel sounds. No pulsatile mass.?? Skin: Skin warm and dry.? Normal skin color.? Normal skin turgor.?? Extremities: No lower extremity edema.? No calf ttp? Back: + mild paraspinal muscular tenderness from lumbar region to coccyx. No CVA tenderness. No midline spinal tenderness, step-off's, or deformity. Full ROM intact in bilateral lower extremities. Straight leg test negative / positive on right; Straight leg test negative / positive on left. No rashes, lesions, areas of induration or fluctuance, or signs of infection noted., Neuro: Moves all extremities spontaneously. 5/5 strength in hip extension/flexion, abduction, adduction. Sensation to light touch intact bilaterally. Patellar and Achilles reflex 2+ bilaterally. No ataxia, gait normal and steady.. No focal neuro deficits. ( Squat and rise - L4 / Heel walk or dorsiflex - L5 / Toe walk - S1) Course Course Course Narrative: Patient is a 66-year-old female with a past medical history of disc herniation, presenting to the emergency department for evaluation of worsening back pain x9 days. Based on history and physical exam, pain is most consistent with muscular pain, although cannot completely exclude herniated disc. On neurological exam there are no deficits. Not consistent with spinal fracture, spinal infection, epidural abscess, AAA, epidural abscess, or dissection. No high risk past medical history including incontinence, fever, immunosuppresion recent surgery or lumbar puncture, coagulopathy, significant trauma, recent unintentional weight loss, pulsatile mass, history of cancer, history of TB, history of IV drug use that would warrant MRI or CT. Not consistent with pyelonephritis, urinary tract infection, renal calculi, pelvic infection, appendicitis, diverticulitis. On exam no concern for cauda equina syndrome. Patient requesting a lumbar x-ray which reveals no acute abnormality, degenerative spondylosis, facet joint disease, and slight disc height narrowing at L4-L5 that has progressed since prior imaging in 2020. No further imaging is currently indicated at this time. Patient received Valium 2 mg p.o. while in the emergency department as she had a responsible ride home, with some improvement in her pain after taking it, ambulatory with steady gait. Discussed plan for discharge home, advised patient that she may trial the use of Flexeril during the day as well, every 8 hours as needed for her pain, she already has a prescription for 30 tablets therefore will not provide an additional script at this time as she is also prescribed Percocet, advised follow-up with primary care provider, discussed reasons to return back to the emergency department, and patient agreed with plan. MDM - Back Pain/Injury Medical Records Attestation: I reviewed the patient's medical records. Lab Data Attestation: I reviewed the patient's lab results. Labs: Lab Results 01/28/22 Range/Units 14:20 Urine Color YELLOW Urine Appearance HAZY Urine pH 6.0 (5.0-8.0) Ur Specific [place] 1.020 (1.005-1.025) Urine Protein NEG (NEG-TRACE) MG/DL Urine Glucose (UA) NEG (NEG) MG/DL Urine Ketones NEG (NEG) MG/DL Urine Blood TRACE (NEG) Urine Nitrite NEG (NEG) Ur Leukocyte Esterase TRACE H (NEG) Urine RBC 1-4 (0) /HPF Urine WBC 1-4 (0-4) /HPF Ur Squamous Epith Cells 1+ /LPF Urine Bacteria TRACE /LPF Urine Mucus 1+ /LPF Imaging Data XR lumbar spine: Radiologist's impression: XR/XR lumbar spine 2-3V IMPRESSION: ? 1. No acute abnormality. 2. Degenerative spondylosis of lumbar spine. Stable grade 1 anterolisthesis of L4 on L5 due to facet joint disease. 3. Slight disc height narrowing L4-L5. This has progressed since 03/13/2020. Discharge Plan Discharge Clinical Impression: Lumbar radiculopathy Patient Disposition: Home, Self-Care Instructions: Lumbar Radiculopathy (ED), Lower Back Exercises (ED) Additional Instructions: As we discussed, you can trial the Flexeril during the day as well, every 8 hours as needed for pain, it may make you drowsy therefore you should refrain from driving, drinking alcohol while taking this medication. Please contact your primary care provider to schedule follow-up visit within 1 week. You may return to the emergency department any new or worsening symptoms or concerns. [place] discutimos, tambi?n puede probar el Flexeril christine el d?a, cada 8 horas seg?n sea necesario para el dolor, puede causarle somnolencia, por lo tanto, debe abstenerse de conducir, beber alcohol mientras chad scott medicamento. Comun?quese con rivera proveedor de atenci?n primaria para programar abdirahman visita de seguimiento dentro de 1 semana. Puede regresar al departamento de emergencias si presenta s?ntomas o inquietudes nuevos o que empeoran. Prescriptions: No Action prednisone 20 mg tablet 40 mg PO DAILY 5 Days Qty: 10 0RF cyclobenzaprine 10 mg tablet 5 mg PO TID PRN (Reason: muscle spasm) Qty: 20 0RF Print Language: Latvian
[2022-01-28] MEDS: diazePAM 2 MG TABLET PO (13:52)
[2022-01-28 14:27] LABS: Appearance Urine HAZY; Color Urine YELLOW; Glucose Urine UA NEG (NEG); Leukocyte Esterase Urine TRACE (NEG); Nitrite Urine NEG (NEG); UACC Culture Trigger NO; Urine Blood TRACE (NEG); Urine Ketones NEG (NEG); Urine Protein NEG (NEG-TRACE)
[2022-01-28 14:44] LABS: Mucus Urine 1+ /LPF; Squamous Epithelial Cell Urine 1+ /LPF
[2022-01-28 14:45] LABS: Bacteria Urine TRACE /LPF
[2022-01-28 15:52] VITALS: BP 110/67; PULSE 94; RESP 16; TEMP 36.8; O2SAT 99
== END 2022-01-28 17:09 | disposition home or self-care (01) ==
PROVIDERS: Nurse Practitioner Family; Emergency Provider Emergency Medicine; PCP Internal Medicine
DX: M47.26 Other spondylosis with radiculopathy, lumbar region (principal); Z79.891 Long term (current) use of opiate analgesic
CPT/HCPCS: 72100; 81001; 99283

== ENCOUNTER 2022-02-13 12:41 | Outpatient (REF) | payer MEDICARE, SELFPAY ==
--- NOTE | ~2022-02-13 | XR_ITS ---
EXAMINATION: XR CHEST CLINICAL INFORMATION: Diseases of respiratory tract COMPARISON: 02/28/2021 TECHNIQUE: 2 views of the chest were obtained. FINDINGS: No significant abnormality is noted involving the heart, lungs, mediastinum, bony thorax or soft tissues. XR/XR chest 2V IMPRESSION: Unremarkable examination.
[2022-02-13 16:03] LABS: Influenza A PCR NEGATIVE (Negative); Influenza B PCR NEGATIVE (Negative); Resp Syncy Virus RNA Qual PCR NEGATIVE (Negative); SARS COV2 PCR INHOUSE NEGATIVE (Negative)
== END 2022-02-13 12:42 | disposition home or self-care (01) ==
LOC: HO.HMGCX 12:41
PROVIDERS: PCP Internal Medicine; Visit Provider Physician Assistant
DX: Z20.822 Contact with and (suspected) exposure to COVID-19 (principal); J39.9 Disease of upper respiratory tract, unspecified; R09.89 Other specified symptoms and signs involving the circulatory and respiratory systems
CPT/HCPCS: 0241U; 71046

== ENCOUNTER 2022-06-16 12:00 | Outpatient (REF) | payer OTHER, SELFPAY ==
--- NOTE | ~2022-06-16 | XR_ITS ---
EXAMINATION: XR LUMBOSACRAL SPINE CLINICAL INFORMATION: Low back pain COMPARISON: 01/28/2022 and 03/13/2020 TECHNIQUE: Three views of the lumbosacral spine. FINDINGS: The vertebral bodies are normal. The disc spaces are preserved. Posterior facet joint arthropathy is seen at L4/5 with a grade 1 anterolisthesis which is stable compared to prior exams The paraspinal soft tissues are normal. XR/XR lumbar spine 2-3V IMPRESSION: No acute process. Stable posterior facet joint arthropathy with grade 1 anterolisthesis at L4/5
== END 2022-06-16 12:01 | disposition home or self-care (01) ==
LOC: HO.XRAY 12:00
PROVIDERS: Absent Provider Internal Medicine; PCP Internal Medicine; Visit Provider Emergency Medicine
DX: M54.50 Low back pain, unspecified (principal)
CPT/HCPCS: 72100

== ENCOUNTER 2022-07-03 05:50 | Emergency (ER) | payer OTHER, SELFPAY ==
[2022-07-03 05:56] VITALS: BP 141/82; PULSE 89; RESP 17; TEMP 37.2; O2SAT 99; BMI 23.0
--- NOTE | 2022-07-03 07:50 | ED.BACK ---
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 She had xrays since then. has been taking regular medications without relief. NO b/b incontinence, no saddle anesthesia. MD elicited complaint: back pain, back injury and fall Pertinent past history: prior back pain and recent trauma Onset (ago): week(s) (chronic back pain but fell at the beginning of may and it is much worse) Timing: constant Severity: moderate Similar Symptoms Previously: Yes Quality: aching and throbbing Location: lumbar spine Radiation: buttocks and left upper leg Exacerbating factors: movement Relieving factors: none Context: fall Associated symptoms: denies other symptoms Treatments prior to arrival: other medications and prescription analgesics Work related injury: No Related Data Home Medications Medication Instructions Recorded Confirmed oxycodone-acetaminophen 5 mg-325 1 tab PO Q12H PRN severe pain 06/19/22 06/19/22 mg tablet Previous Rx's Medication Instructions Recorded cyclobenzaprine 10 mg tablet 5 mg PO TID PRN muscle spasm #20 07/15/20 tabs prednisone 20 mg tablet 40 mg PO DAILY 5 days #10 tabs 07/15/20 doxycycline hyclate 100 mg capsule 100 mg PO BID 7 days #14 caps 02/13/22 lidocaine 4 % topical patch 1 patch topical DAILY PRN pain #10 06/19/22 (Blue-Emu Lidocaine Patch) ea diclofenac sodium 1 % topical gel 2 g topical QID #100 grams 07/03/22 (Voltaren Arthritis Pain) gabapentin 100 mg capsule 100 mg PO TID #90 caps 07/03/22 lidocaine 5 % topical patch 1 patch topical DAILY #30 ea 07/03/22 prednisone 20 mg tablet 40 mg PO DAILY 4 days #8 tabs 07/03/22 Allergies Allergy/AdvReac Type Severity Reaction Status Date / Time doxycycline Allergy Rash Verified 07/03/22 06:04 tizanidine [From Zanaflex] Allergy Nausea Verified 07/03/22 06:03 Review of Systems Review of Systems: Constitutional : No Weight loss, No Fever, No Chills, ENT/Mouth : No Hearing loss, No Ear Pain, No Nasal Congestion, No Sinus Pain, No Hoarseness, No sore throat, No Rhinorrhea, No Swallowing Difficulty Cardiovascular : No Chest Pain, No SOB Respiratory : No Cough, No Dyspnea Gastrointestinal : No Nausea, No Vomiting, No Diarrhea, No abdominal Pain, No Hematochezia, No Melena Genitourinary : No Dysuria, No Urinary Frequency, No Hematuria, No Urinary Incontinence, Musculoskeletal : positive back pain Skin : No Skin Lesions, No rash Neuro : No Weakness, No Numbness, No Paresthesias, no loss of bowel or bladder incontinence, no saddle anesthesia [facility] Past Medical History Attestation statement: The following information was validated with the patient. Medical History Herniated disc Tachycardia Social History Social History Alcohol intake: never Patient Tobacco Use Status: Never used Tobacco Advance Directives: No Advance Directives Information Provided: Yes Physical Exam Vital Signs: Vital Signs: Last Vital Signs Temp 98.9 F 07/03/22 05:56 Pulse 89 07/03/22 05:56 Resp 17 07/03/22 05:56 BP 141/82 H 07/03/22 05:56 Pulse Ox 99 07/03/22 05:56 O2 Del Method 07/03/22 05:56 BMI result Body Mass Index 23.0 Appearance: Alert. Oriented X3. No acute distress. Eyes: Pupils equal, round and reactive to light. ENT: Pharynx normal. Neck: Normal inspection. Neck supple. CVS: Normal heart rate and rhythm. Pulses normal. Respiratory: No respiratory distress. Breath sounds normal. Abdomen: Soft and nontender. Skin: Skin warm and dry. Normal skin color. Normal skin turgor. Extremities: No lower extremity edema. No calf ttp Neuro: Oriented X 3. No motor deficit. No sensory deficit. SILT inner thigh, 2+ DTR in patella, L5 5/5 bilaterally MDM - Back Pain/Injury MDM Narrative Medical decision making narrative: 66 yo female with hx of chronic back pain made worse by falls here with c/o low back pain seems radicular in nature already had xrays, has pain management appointment in june. patient is [place] intact. Will start on steroids and gabapentin. She has no b/b icontinence or saddle anesthesia no red flags. Discharge Plan Discharge Clinical Impression: Lumbar radiculopathy Patient Disposition: Home, Self-Care Instructions: Lumbar Radiculopathy (ED) Additional Instructions: return to ED for any worsening symptoms or concerns tome todos nash medicamentos habituales. seguimiento con manejo del dolor seg?n lo planeado. Regrese a la jennifer de emergencias por cualquier s?ntoma o inquietud que empeore. tome la prednisona con alimentos. empezar con prednisona el 01/07 Prescriptions: New prednisone 20 mg tablet 40 mg PO DAILY 4 Days Qty: 8 0RF lidocaine 5 % adhesive patch,medicated 1 patch topical DAILY Qty: 30 0RF Rx Instructions: leave on most painful area for up to 12 hrs diclofenac sodium [Voltaren Arthritis Pain] 1 % gel 2 g topical QID Qty: 100 0RF Rx Instructions: apply to single elbow, wrist or hand; for hand includes palm/fingers/back of hand gabapentin 100 mg capsule 100 mg PO TID Qty: 90 0RF No Action prednisone 20 mg tablet 40 mg PO DAILY 5 Days Qty: 10 0RF cyclobenzaprine 10 mg tablet 5 mg PO TID PRN (Reason: muscle spasm) Qty: 20 0RF oxycodone-acetaminophen 5-325 mg tablet 1 tab PO Q12H PRN (Reason: severe pain) lidocaine [Blue-Emu Lidocaine Patch] 4 % adhesive patch,medicated 1 patch topical DAILY PRN (Reason: pain) Qty: 10 0RF doxycycline hyclate 100 mg capsule 100 mg PO BID 7 Days Qty: 14 0RF Print Language: Arabic
[2022-07-03] MEDS: Gabapentin 100 MG CAPSULE 200 MG PO (08:45)
[2022-07-03] MEDS: HYDROmorphone HCl 1 MG/ML SYRINGE IM (08:45)
[2022-07-03] MEDS: predniSONE 20 MG TABLET 40 MG PO (08:45)
[2022-07-03 09:33] VITALS: BP 149/68; PULSE 74; RESP 16
[2022-07-03] MEDS: Ondansetron ODT 4 MG TAB.RAPDIS TRANSLINGU (09:45)
--- NOTE | 2022-07-03 10:08 | PC.NURSE ---
Discharge was delayed due to patient feeling nauseous. Dr Arroyo in to speak with patient. medicated with zofran SL Will watch patient and discharge when feeling slightly better. Daughter at bedside. pt agreeable to plan
--- NOTE | 2022-07-03 13:26 | PC.NURSE ---
1100 PT CONTINUES TO REPORT INTERMITTENT NAUSEA AND DIZZINESS WHEN SHE ATTEMPTS TO STAND. STATES THAT SHE FEELS BETTER WHEN SHE IS LAYING DOWN. DAUGHTER AT BEDSIDE. WILL REMAIN RESTING FOR AWHILE LONGER BP 134/73 P76 SKIN WARM AND DRY
--- NOTE | 2022-07-03 13:28 | PC.NURSE ---
1215: PT LEAVING WITH DAUGHTER WHO CALLED FOR RIDE FOR PATIENT AND HERSELF. PT REPORTS FEELING BETTER. NEUROS INTACT. ALDRIDGE FREELY, GAIT STEADY
== END 2022-07-03 12:15 | disposition home or self-care (01) ==
PROVIDERS: Emergency Provider Emergency Medicine
DX: M54.16 Radiculopathy, lumbar region (principal); M54.50 Low back pain, unspecified
CPT/HCPCS: 96372; 99283; 99284; J1170

== ENCOUNTER 2023-02-16 07:43 | Outpatient (REF) | payer OTHER, SELFPAY ==
--- NOTE | ~2023-02-16 | MM_ITS ---
EXAMINATION: MM SCREENING DIGITAL BREAST TOMOSYNTHESIS, BILATERAL CLINICAL INFORMATION: Screening. Asymptomatic. The lifetime risk of breast cancer based on the Tyrer-Cuzick Model is 3.5%. COMPARISON: Mammography: September 17, 2020 and studies dating back to January 23, 2016 TECHNIQUE: Digital breast tomosynthesis is performed in both the craniocaudal and mediolateral oblique views along with computer-aided detection (CAD). Synthesized 2D images are generated from the tomosynthesis. FINDINGS: There are scattered areas of fibroglandular density (ACR BI-RADS breast composition Category b). There are no significant masses, abnormal calcifications, or other abnormalities. MM/MM tomosynthesis screening BI IMPRESSION: No significant changes from prior exam. ASSESSMENT: BI-RADS 1: Negative RECOMMENDATION: Routine annual mammography screening. This patient's information was entered into a reminder system with a target due date for their next mammogram.
== END 2023-02-16 07:44 | disposition home or self-care (01) ==
LOC: HO.MAMMO 07:43
PROVIDERS: PCP Registered Nurse; Visit Provider Registered Nurse
DX: Z12.31 Encounter for screening mammogram for malignant neoplasm of breast (principal)
CPT/HCPCS: 77063; 77067

== ENCOUNTER 2023-04-01 09:55 | Outpatient (REF) | payer OTHER, SELFPAY ==
[2023-04-10 03:14] LABS: HPV mRNA E6/E7 rflx Not Detected (Not Detected)
== END 2023-04-01 09:56 | disposition home or self-care (01) ==
LOC: HO.HHCLNP 09:55
PROVIDERS: Visit Provider Advanced Practice Midwife
DX: Z12.4 Encounter for screening for malignant neoplasm of cervix (principal); Z11.51 Encounter for screening for human papillomavirus (HPV)
CPT/HCPCS: 87624; 88142

== ENCOUNTER 2023-04-08 12:18 | Outpatient (REF) | payer OTHER, SELFPAY ==
--- NOTE | ~2023-04-08 | MM_ITS ---
EXAMINATION: BONE DENSITOMETRY CLINICAL INDICATION: Menopausal and perimenopausal disorder, unspecified. COMPARISON: This is the patient's baseline examination. TECHNIQUE: Using a [employer] DXA System (software version: 13.1) manufactured by [employer], dual-energy x-ray absorptiometry was performed of the lumbar spine and left hip. The images are of good technical quality. Summary results are attached. FINDINGS: LEFT FEMUR, NECK: BMD 0.964 g/cm2, Z-score 1.1, T-score -0.5, normal. LEFT FEMUR, TOTAL: BMD 1.034 g/cm2, Z-score 1.6, T-score 0.2, normal. AP SPINE L1-L3 (excluding L4): The data of L1-L4 has been changed to exclude the L4 vertebral body, because degenerative sclerosis at this level may cause overestimation of lumbar spine density. BMD 0.999 g/cm2, Z-score 0.3, T-score -1.4, osteopenia. IDENTIFIED RISK FACTORS: Early menopause, secondary osteoporosis. HISTORY OF FRACTURE: None listed. MEDICATIONS: Vitamin D. MM/XR DEXA axial skeleton IMPRESSION: 1. DIAGNOSIS: Osteopenia based on the lowest T-score value of -1.4 in the lumbar spine applying World Health Organization criteria. 2. 10-YEAR FRACTURE RISK PREDICTION, FRAX: Major osteoporotic fracture (clinical spine, forearm, hip or shoulder) 3.9%. Hip fracture 0.2%. 3. Treatment Recommendations: NOF guidelines recommend consideration for treatment in postmenopausal women and men age 50 and older presenting with the following: -A hip or vertebral (clinical or morphometric) fracture. -T-score less than or equal to -2.5 at the femoral neck or spine after appropriate evaluation to exclude secondary causes. -Low bone mass at the hip or spine and a 10-year fracture probability by FRAX of greater than or equal to 3% for hip fracture or greater than or equal to 20% for major osteoporotic fracture based on the [place] adapted WHO algorithm. 4. Other Recommendations: All treatment decisions require clinical judgment and consideration of individual patient factors, including patient preferences, comorbidities, previous drug use, risk factors not captured in the FRAX model (e.g. frailty, falls, vitamin D deficiency, increased bone turnover, interval significant decline in bone density) and possible under or overestimation of fracture risk by FRAX. Additional medical evaluation for secondary cause of low bone mineral density may be appropriate. FUTURE SCAN RECOMMENDATION: People with diagnosed cases of osteoporosis or at high risk for fracture should have regular bone mineral density tests. For patients eligible for Medicare, routine testing is allowed once every 2 years. The testing frequency can be increased to one year for patients who have rapidly progressing disease, those who are receiving or discontinuing medical therapy to restore bone mass, or have additional risk factors.
== END 2023-04-08 12:19 | disposition home or self-care (01) ==
LOC: HO.MAMMO 12:18
PROVIDERS: PCP Registered Nurse; Visit Provider Advanced Practice Midwife
DX: Z13.820 Encounter for screening for osteoporosis (principal); Z78.0 Asymptomatic menopausal state
CPT/HCPCS: 77080

== ENCOUNTER → 2023-04-08 13:00 | Outpatient (BNV) | payer OTHER, SELFPAY | PROVIDERS: PCP Registered Nurse; Visit Provider Radiology Diagnostic Radiology | DX: M85.88 Other specified disorders of bone density and structure, other site (principal) | CPT/HCPCS: 77080 ==

== ENCOUNTER 2023-06-25 10:01 | Outpatient (REF) | payer OTHER, SELFPAY ==
[2023-06-25 15:05] LABS: Estimated Average Glucose 111 mg/dL; Hemoglobin A1c % 5.5 % (<6.0)
[2023-06-25 15:21] LABS: Alanine Aminotransferase 18 U/L (0-31); Albumin Level 4.8 g/dL (3.5-5.0); Alkaline Phosphatase 51 U/L (39-117); Anion Gap 12 (12-20); Aspartate Amino Transferase 15 U/L (5-31); Bilirubin Total 0.7 mg/dL (0.0-1.0); Blood Urea Nitrogen 15 mg/dL (9-16); Calcium 9.9 mg/dL (8.4-10.2); Carbon Dioxide 27 mmol/L (22-29); Chloride 105 mmol/L (96-108); Cholesterol 231 mg/dL (<200); Estimated Glomerular Filt Rate > 60; Glucose Fasting 92 mg/dL (60-99); HDL Cholesterol 50 mg/dL (>40); LDL Cholesterol Calculated 153 mg/dL (<100); Potassium 3.4 mmol/L (3.3-5.1); Sodium 141 mmol/L (135-145); Total Protein 7.4 g/dL (6.5-8.0); Triglycerides 143 mg/dL (<150)
[2023-06-25 15:39] LABS: Vitamin B12 336 pg/mL (200-900)
[2023-06-25 15:42] LABS: TSH reflex Free T4 1.63 uIU/mL (0.32-4.0); Vitamin D 25-OH Total 31.4 ng/mL (>30)
[2023-06-26 03:44] LABS: HIV AB/AG Nonreactive (Nonreactive); HIV Num 1 0.04 S/CO (0.00-0.99)
[2023-06-26 14:43] LABS: HCV RNA PCR Qn <1.18 NOT DETECTED Log IU/mL (NOT DETECTED); HCV RNA PCR Qn <15 NOT DETECTED IU/mL (NOT DETECTED)
[2023-06-28 13:33] LABS: RPR Rapid Plasma Reagin NON-REACTIVE (NON-REACTIVE)
== END 2023-06-25 10:02 | disposition home or self-care (01) ==
LOC: HO.CHCLDS 10:01
PROVIDERS: Visit Provider Registered Nurse
DX: Z00.00 Encounter for general adult medical examination without abnormal findings (principal); E55.9 Vitamin D deficiency, unspecified; E53.8 Deficiency of other specified B group vitamins; E78.5 Hyperlipidemia, unspecified; R94.6 Abnormal results of thyroid function studies; R73.9 Hyperglycemia, unspecified
CPT/HCPCS: 36415; 80053; 80061; 82306; 82607; 83036; 84443; 86592; 87389; 87522

== ENCOUNTER 2023-10-22 09:35 | Outpatient (REF) | payer OTHER, SELFPAY ==
[2023-10-22 14:53] LABS: Alanine Aminotransferase 23 U/L (0-31); Albumin Level 4.8 g/dL (3.5-5.0); Alkaline Phosphatase 58 U/L (39-117); Aspartate Amino Transferase 20 U/L (5-31); Bilirubin Direct 0.5 mg/dL (0.0-0.5); Bilirubin Total 0.9 mg/dL (0.0-1.0); Cholesterol 132 mg/dL (<200); HDL Cholesterol 48 mg/dL (>40); LDL Cholesterol Calculated 69 mg/dL (<100); Total Protein 7.4 g/dL (6.5-8.0); Triglycerides 77 mg/dL (<150)
== END 2023-10-22 09:36 | disposition home or self-care (01) ==
LOC: HO.CHCLDS 09:35
PROVIDERS: Visit Provider Registered Nurse
DX: E78.2 Mixed hyperlipidemia (principal)
CPT/HCPCS: 36415; 80061; 80076

== ENCOUNTER 2023-12-25 11:58 | Emergency (ER) | payer OTHER, SELFPAY ==
--- NOTE | ~2023-12-25 | CT_ITS ---
EXAMINATION: CT CHEST WITHOUT CONTRAST CLINICAL INFORMATION: Rib pain. COMPARISON: Most recent chest radiograph dated 02/13/2022. TECHNIQUE: Multidetector volumetric CT imaging of the chest was done. Axial MIP volume rendering provided. Sagittal and coronal reformatted images were obtained. This CT examination was performed using dose optimization techniques as appropriate, variously including the following: *Automated exposure control *Adjustment of mA and/or kV according to patient size (this includes techniques or standardized protocols for targeted exams where dose is matched to indication/reason for exam; i.e. extremities or head) *Use of iterative reconstruction technique DLP: 133 mGy-cm FINDINGS: EDUCATIONAL RESOURCE CENTER TEACHER: Unremarkable. LUNGS: Somewhat irregular areas of nodular density within the right lung apex as well as anteriorly within the right middle lobe and peripherally along the left major fissure. Findings are nonspecific and could represent irregular scarring versus an infectious or inflammatory process. No large, confluent airspace consolidation. The central airways are patent. MEDIASTINUM: No cardiomegaly. No pericardial effusion. No thoracic aortic dilatation. Atherosclerotic calcifications. No significant mediastinal or hilar lymphadenopathy. Unremarkable thyroid. CORONARY ARTERY CALCIFICATION: Present. PLEURA: There is no pleural effusion. No pleural mass or thickening. AXILLA: No lymphadenopathy. UPPER ABDOMEN: Unremarkable. OSSEOUS STRUCTURES: Dextrocurvature of the thoracic spine. Mild multilevel degenerative disc disease within the midthoracic spine. No acute fracture or subluxation. No rib fracture. No concerning lytic or blastic osseous lesion. CT/CT chest wo IV con IMPRESSION: 1. No rib fracture. 2. Somewhat irregular areas of nodular density within the right lung apex as well as anteriorly within the right middle lobe and peripherally along the left major fissure. Findings are nonspecific and could represent irregular scarring versus an infectious or inflammatory process. No large, confluent airspace consolidation. 3. No significant lymphadenopathy. 4. Dextrocurvature of the thoracic spine with mild multilevel degenerative disc disease. Fleischner guidelines were followed.
[2023-12-25 12:04] VITALS: BP 157/64; PULSE 85; RESP 16; TEMP 36.6; O2SAT 96; BMI 21.3
--- NOTE | 2023-12-25 12:06 | ED_ITS ---
HPI - General Adult General Chief complaint: General Medical Stated complaint: lung pain nodle on r rib cage Time Seen by Provider: 12/25/23 12:41 Source: patient Mode of arrival: ambulatory Limitations: no limitations History of Present Illness HPI narrative: 68-year-old female with a history of lumbar disc disease, and recently diagnosed pulmonary nodule who presents to the ER for evaluation of worsening posterior right rib pain for the last 2 weeks. She states she was diagnosed with a lung nodule 2 weeks ago at [facility] and is supposed to be getting a CT of her chest but it has not been scheduled yet. She has been having increased pain in the area of the right ribs. She has not short of breath. She denies any coughing or chest pain. She denies any urinary symptoms, abdominal pain, nausea, vomiting, diarrhea. She has been anxious about the pulmonary nodule found on x- ray. She is a former smoker and quit 4 years ago MD complaint: Posterior right lower rib pain Onset (ago): week(s) (2) Location: back Radiation: non-radiation Severity: moderate Quality: stabbing and aching Pain Consistency: intermittent Relieving factors: none Exacerbating factors: none Associated symptoms: denies other symptoms Treatments prior to arrival: none Related Data Home Medications ?Medication ?Instructions ?Recorded ?Confirmed oxycodone-acetaminophen 5 mg-325 1 tab PO Q12H PRN severe pain 06/19/22 06/19/22 mg tablet Previous Rx's ?Medication ?Instructions ?Recorded cyclobenzaprine 10 mg tablet 5 mg (1/2 x 10 mg) PO TID PRN 07/15/20 muscle spasm #20 tabs prednisone 20 mg tablet 40 mg (2 x 20 mg) PO DAILY 5 days 07/15/20 #10 tabs doxycycline hyclate 100 mg capsule 100 mg PO BID 7 days #14 caps 02/13/22 lidocaine 4 % topical patch 1 patch topical DAILY PRN pain #10 06/19/22 (Blue-Emu Lidocaine Patch) ea diclofenac sodium 1 % topical gel 2 g topical QID #100 grams 07/03/22 (Voltaren Arthritis Pain) gabapentin 100 mg capsule 100 mg PO TID #90 caps 07/03/22 lidocaine 5 % topical patch 1 patch topical DAILY #30 ea 07/03/22 ondansetron 4 mg disintegrating 4 mg PO Q8H PRN nausea and 07/03/22 tablet vomiting #20 tabs prednisone 20 mg tablet 40 mg (2 x 20 mg) PO DAILY 4 days 07/03/22 #8 tabs cyclobenzaprine 10 mg tablet 10 mg PO TID PRN muscle spasm #10 12/25/23 tabs ibuprofen 600 mg tablet 600 mg PO Q8H PRN pain #10 tabs 12/25/23 lidocaine 5 % topical patch 1 patch topical DAILY #15 ea 12/25/23 Allergies Allergy/AdvReac Type Severity Reaction Status Date / Time doxycycline Allergy Rash Verified 12/25/23 12:06 tizanidine [From Zanaflex] Allergy Nausea Verified 12/25/23 12:06 Review of Systems 2 Review of Systems: Yes all other systems are reviewed and are negative [facility] Past Medical History Medical History Herniated disc Tachycardia Social History Social History Alcohol intake: never Patient Tobacco Use Status: Never used Tobacco Advance Directives: No Advance Directives Information Provided: No Do you have a plan to hurt others: No Plan Physical Exam ED Vital Signs: Vital Signs - 24 hr 12/25/23 12:04 Temperature 97.9 F Pulse Rate 85 Respiratory Rate 16 Blood Pressure 157/64 H Pulse Oximetry 96 Oxygen Delivery Method Room Air BMI result Body Mass Index 21.3 Appearance: Alert, frail woman. Oriented X3. No acute distress. Head: normocephalic, atraumatic. Eyes: Pupils equal, round and reactive to light. ENT: Pharynx normal. No tonsillar swelling or exudate. Neck: Normal inspection. Neck supple. CVS: Normal heart rate and rhythm. Pulses normal. Respiratory: No respiratory distress. Breath sounds normal. Abdomen: Soft and nontender. +BS x4 Back: right upper lumbar are with tenderness in the soft tissues Skin: Skin warm and dry. Normal skin color. Normal skin turgor. No rashes. Extremities: No lower extremity edema. No joint swelling. Neuro/psych: Oriented X 3. No motor deficit. No sensory deficit. CN II-XII intact. Normal speech and cognition. Course Course Course Narrative: RME performed by Lanette Munoz PA-C. Patient is a 68 year old assigned female at presenting to the emergency department with right sided rib pain and feeling generally unwell. Patient was recently diagnosed with a lung nodule on x-ray and is supposed to be getting a chest CT but that is not scheduled yet. Detailed physical exam and review of systems are deferred to the primary school teacher librarian. Labs, imaging, and swabs ordered. Patient placed back in the waiting room pending room availability and results. Medications Administered Discontinued Medications Generic Name Dose Route Start Last Admin Trade Name Hector PRN Reason Stop Dose Admin Acetaminophen 975 mg 12/25/23 13:41 12/25/23 13:54 Acetaminophen 325 Mg Tablet PO 12/25/23 13:42 975 mg ONCE ONE Administration Lidocaine 1 patch 12/25/23 13:41 12/25/23 13:54 Lidocaine 4 % Patch Adh..Patch TRANSDERMA 12/25/23 13:42 1 patch ONCE ONE Administration Protocol Medical Decision Making Medical Decision Making [facility] Narrative: 60-year-old female, former smoker presents the ER for evaluation of right sided back pain for the last 2 weeks. Patient is anxious about a 7 mm nodule seen on x-ray done at [facility] 2 weeks ago. She has some soft tissue tenderness on examination. No CVA tenderness. No urinary symptoms. No abdominal pain. Lungs are clear. CT scan was ordered from triage Lab workup was unremarkable. EKG without ischemic changes. Troponin negative. CT scan reviewed, some irregular areas in the right lung not consistent with suspicious spiculated lesion or malignancy, rather could be from scarring, inflammation, infection. No cough viral studies are negative. Will refer to her PCP to monitor these areas and repeat CT scans given she has a former smoker. Her back pain is most likely due to muscular pain as she has soft tissue tenderness. Will treat with NSAIDs, muscle relaxers, Lidoderm. licensed staff mft used to discuss treatment, diagnosis and results. Stable for discharge home. Differential Diagnosis Differential Diagnoses: The differential diagnosis associated with the presentation includes Musculoskeletal pain, lumbar strain, pneumonia, lung tumor, broken rib Admission/Observation Consideration of admission/observation: Escalation of care including admission/observation considered Lab Data [facility] Lab Attestation statement: I reviewed the patient's lab results. No leukocytosis, mild anemia, normal renal function 12/25/23 12:19 12/25/23 12:19 Labs: Lab Results 12/25/23 12/25/23 12/25/23 Range/Units 12:19 12:20 12:26 WBC 5.3 (4.8-10.8) X10*3/uL RBC 4.48 (4.20-5.50) X10*6/uL Hgb 13.3 (12.0-16.0) g/dl Hct 39.3 (37.0-47.0) % MCV 87.7 (80.0-98.0) fL MCH 29.7 (27.0-33.0) pg MCHC 33.8 (31.0-35.0) g/dl RDW 13.0 (11.0-16.0) % Plt Count 302 (160-400) X10*3/uL MPV 9.1 L (9.4-12.3) fL Immature Gran % (Auto) 0.6 H (0.0-0.4) % Neut % (Auto) 65.9 (45-73) % Lymph % (Auto) 23.9 (20-40) % Park % (Auto) 6.2 (2-11) % Eos % (Auto) 2.8 (0-4) % Baso % (Auto) 0.6 (0-2) % Lymph # (Auto) 1.3 (1.2-4.9) X10*3/uL Park # (Auto) 0.3 (0.1-1.2) X10*3/uL Eos # (Auto) 0.2 (0.0-0.4) X10*3/uL Baso # (Auto) 0.0 (0.0-0.2) X10*3/uL Abs Immat Gran (auto) 0.03 (0.00-0.03) X10*3/uL Absolute Neuts (auto) 3.5 (2.0-8.3) x10*3/uL Absolute Nucleated RBC 0.000 (0.0-0.012) X10*3/uL Nucleated RBC % (auto) 0.0 (0.0-0.2) /100WBC PT 12.1 (11.1-13.3) SEC INR 1.0 (0.9-1.1) APTT 30.2 (26.0-36.8) SEC Sodium 143 (135-145) mmol/L Potassium 3.6 (3.3-5.1) mmol/L Chloride 103 (96-108) mmol/L Carbon Dioxide 29 (22-29) mmol/L Anion Gap 15 (12-20) BUN 14 (9-16) mg/dL Creatinine 0.86 (0.5-1.4) mg/dL Estim Creat Clear Calc 54.1 Estimated GFR > 60 Random Glucose 108 (60-115) mg/dL Calcium 10.1 (8.4-10.2) mg/dL Magnesium 1.8 (1.6-2.6) mg/dL Total Bilirubin 0.7 (0.0-1.0) mg/dL AST 17 (5-31) U/L ALT 18 (0-31) U/L Alkaline Phosphatase 64 (39-117) U/L Troponin I High Sens < 2.7 (<3.5-17.0) ng/L Total Protein 7.7 (6.5-8.0) g/dL Albumin 4.9 (3.5-5.0) g/dL Urine Color Yellow Urine Appearance Clear Urine pH 6.5 (5.0-9.0) Ur Specific Desha 1.020 (1.005-1.025) Urine Protein Negative (Neg-Trace) mg/dL Urine Glucose (UA) Negative (Negative) mg/dL Urine Ketones Negative (Negative) mg/dL Urine Blood Negative (Negative) Urine Nitrite Negative (Negative) Ur Leukocyte Esterase Negative (Negative) Influenza Type A (PCR) NEGATIVE (Negative) Influenza Type B (PCR) NEGATIVE (Negative) RSV RNA Qual (PCR) NEGATIVE (Negative) SARS-CoV-2 RNA (RT-PCR) NEGATIVE (Negative) Independent Interpretation I performed an independent interpretation of an: EKG and CT Scan Interpretation: EKG with normal sinus rhythm, ventricular rate 82 beats per minute, normal NE interval, normal QTC, no ST segment elevation depressions. No change from prior done [address] with irregular shapes nodule in the right lung Radiology Impression Discussion of test interpretation with radiology: I have reviewed the radiologist's reading. Radiologist Impression: EXAMINATION: CT CHEST WITHOUT CONTRAST CLINICAL INFORMATION: Rib pain. COMPARISON: Most recent chest radiograph dated 02/13/2022. TECHNIQUE: Multidetector volumetric CT imaging of the chest was done. Axial MIP volume rendering provided. Sagittal and coronal reformatted images were obtained. This CT examination was performed using dose optimization techniques as appropriate, variously including the following: *Automated exposure control *Adjustment of mA and/or kV according to patient size (this includes techniques or standardized protocols for targeted exams where dose is matched to indication/reason for exam; i.e. extremities or head) *Use of iterative reconstruction technique DLP: 133 mGy-cm FINDINGS: ARCHITECTURAL MODELER: Unremarkable. LUNGS: Somewhat irregular areas of nodular density within the right lung apex as well as anteriorly within the right middle lobe and peripherally along the left major fissure. Findings are nonspecific and could represent irregular scarring versus an infectious or inflammatory process. No large, confluent airspace consolidation. The central airways are patent. MEDIASTINUM: No cardiomegaly. No pericardial effusion. No thoracic aortic dilatation. Atherosclerotic calcifications. No significant mediastinal or hilar lymphadenopathy. Unremarkable thyroid. CORONARY ARTERY CALCIFICATION: Present. PLEURA: There is no pleural effusion. No pleural mass or thickening. AXILLA: No lymphadenopathy. UPPER ABDOMEN: Unremarkable. OSSEOUS STRUCTURES: Dextrocurvature of the thoracic spine. Mild multilevel degenerative disc disease within the midthoracic spine. No acute fracture or subluxation. No rib fracture. No concerning lytic or blastic osseous lesion. CT/CT chest wo IV con IMPRESSION: 1. No rib fracture. 2. Somewhat irregular areas of nodular density within the right lung apex as well as anteriorly within the right middle lobe and peripherally along the left major fissure. Findings are nonspecific and could represent irregular scarring versus an infectious or inflammatory process. No large, confluent airspace consolidation. 3. No significant lymphadenopathy. 4. Dextrocurvature of the thoracic spine with mild multilevel degenerative disc disease. Independent Historian Clinical information obtained from an independent historian. History obtained from or confirmed by: Other (Adult daughter who is translating at the bedside) External Record Review External record reviewed: Outpatient record, Prior outpatient labs and Outside ED record Prescription Management I considered prescription management with: Pain Medication Chronic Conditions Patient?s care impacted by: Other (Former smoker) Critical Care Time Critical Care Time Critical Care Time: No Discharge Plan Discharge Clinical Impression: Back pain Qualifiers: Back pain location: low back pain Chronicity: acute Back pain laterality: right Sciatica presence: without sciatica Qualified Code(s): M54.50 - Low back pain, unspecified Patient Disposition: Home, Self-Care Instructions: Back Pain (ED) Additional Instructions: Your lab workup, EKG and imaging today were largely unremarkable. Recommend following up with your doctor for repeat CT scan in the next several months for monitoring of the irregular densities in the lung. Your pain is most likely due to muscle strain and spasm. No bending, lifting or twisting. Use ice several times per day for 20 minutes at a time for the next 48 hours and then change to heat. Take medications as prescribed to help with pain and discomfort. Follow up with your Primary Care Doctor this week. If your pain worsens, if you develop new numbness, tingling, weakness, loss of function or incontinence call 911 or come back to the ER right away for evaluation. If you develop new or worsening symptoms call 911 or come back to the ER for further evaluation. EXAMINATION: CT CHEST WITHOUT CONTRAST CLINICAL INFORMATION: Rib pain. COMPARISON: Most recent chest radiograph dated 02/13/2022. TECHNIQUE: Multidetector volumetric CT imaging of the chest was done. Axial MIP volume rendering provided. Sagittal and coronal reformatted images were obtained. This CT examination was performed using dose optimization techniques as appropriate, variously including the following: *Automated exposure control *Adjustment of mA and/or kV according to patient size (this includes techniques or standardized protocols for targeted exams where dose is matched to indication/reason for exam; i.e. extremities or head) *Use of iterative reconstruction technique DLP: 133 mGy-cm FINDINGS: ARCHITECTURAL MODELER: Unremarkable. LUNGS: Somewhat irregular areas of nodular density within the right lung apex as well as anteriorly within the right middle lobe and peripherally along the left major fissure. Findings are nonspecific and could represent irregular scarring versus an infectious or inflammatory process. No large, confluent airspace consolidation. The central airways are patent. MEDIASTINUM: No cardiomegaly. No pericardial effusion. No thoracic aortic dilatation. Atherosclerotic calcifications. No significant mediastinal or hilar lymphadenopathy. Unremarkable thyroid. CORONARY ARTERY CALCIFICATION: Present. PLEURA: There is no pleural effusion. No pleural mass or thickening. AXILLA: No lymphadenopathy. UPPER ABDOMEN: Unremarkable. OSSEOUS STRUCTURES: Dextrocurvature of the thoracic spine. Mild multilevel degenerative disc disease within the midthoracic spine. No acute fracture or subluxation. No rib fracture. No concerning lytic or blastic osseous lesion. CT/CT chest wo IV con IMPRESSION: 1. No rib fracture. 2. Somewhat irregular areas of nodular density within the right lung apex as well as anteriorly within the right middle lobe and peripherally along the left major fissure. Findings are nonspecific and could represent irregular scarring versus an infectious or inflammatory process. No large, confluent airspace consolidation. 3. No significant lymphadenopathy. 4. Dextrocurvature of the thoracic spine with mild multilevel degenerative disc disease. Prescriptions: New cyclobenzaprine 10 mg tablet 10 mg PO TID PRN (Reason: muscle spasm) Qty: 10 0RF ibuprofen 600 mg tablet 600 mg PO Q8H PRN (Reason: pain) Qty: 10 0RF lidocaine 5 % adhesive patch,medicated 1 patch topical DAILY Qty: 15 0RF Rx Instructions: leave on most painful area for up to 12 hrs No Action prednisone 20 mg tablet 40 mg PO DAILY 5 Days Qty: 10 0RF cyclobenzaprine 10 mg tablet 5 mg PO TID PRN (Reason: muscle spasm) Qty: 20 0RF prednisone 20 mg tablet 40 mg PO DAILY 4 Days Qty: 8 0RF lidocaine 5 % adhesive patch,medicated 1 patch topical DAILY Qty: 30 0RF Rx Instructions: leave on most painful area for up to 12 hrs diclofenac sodium [Voltaren Arthritis Pain] 1 % gel 2 g topical QID Qty: 100 0RF Rx Instructions: apply to single elbow, wrist or hand; for hand includes palm/fingers/back of hand gabapentin 100 mg capsule 100 mg PO TID Qty: 90 0RF ondansetron 4 mg tablet,disintegrating 4 mg PO Q8H PRN (Reason: nausea and vomiting) Qty: 20 0RF oxycodone-acetaminophen 5-325 mg tablet 1 tab PO Q12H PRN (Reason: severe pain) lidocaine [Blue-Emu Lidocaine Patch] 4 % adhesive patch,medicated 1 patch topical DAILY PRN (Reason: pain) Qty: 10 0RF doxycycline hyclate 100 mg capsule 100 mg PO BID 7 Days Qty: 14 0RF Referrals: Cecy Pabon FNP [Primary Care Provider] - Print Language: Omani
--- NOTE | 2023-12-25 12:07 | ECG_ITS ---
Test Reason : chest pain Blood Pressure : / mmHG Vent. Rate : 082 BPM Atrial Rate : 082 BPM P-R Int : 162 ms QRS Dur : 082 ms QT Int : 340 ms P-R-T Axes : 073 010 071 degrees QTc Int : 397 ms Normal sinus rhythm Nonspecific T wave abnormality Abnormal ECG When compared with ECG of 15-JUL-2020 11:58, No significant change was found Referred By: Lanette Munoz Electronically Signed By:MAYDA RICE MD
[2023-12-25 12:27] LABS: MANUAL DIFF FLAG NO
[2023-12-25 12:35] LABS: Basophils Percent Auto 0.6 % (0-2); Eosinophils Absolute Auto 0.2 X10*3/uL (0.0-0.4); Eosinophils Percent Auto 2.8 % (0-4); Hematocrit 39.3 % (37.0-47.0); Hemoglobin 13.3 g/dl (12.0-16.0); Imm Gran Abs Auto 0.03 X10*3/uL (0.00-0.03); Imm Gran Pct Auto 0.6 % (0.0-0.4); Lymphocytes Absolute Auto 1.3 X10*3/uL (1.2-4.9); Lymphocytes Percent Auto 23.9 % (20-40); Mean Corpuscular HGB Conc 33.8 g/dl (31.0-35.0); Mean Corpuscular Hemoglobin 29.7 pg (27.0-33.0); Mean Corpuscular Volume 87.7 fL (80.0-98.0); Mean Platelet Volume 9.1 fL (9.4-12.3); Monocytes Absolute Auto 0.3 X10*3/uL (0.1-1.2); Monocytes Percent Auto 6.2 % (2-11); Neutrophils Absolute Auto 3.5 x10*3/uL (2.0-8.3); Neutrophils Percent Auto 65.9 % (45-73); Platelet Count 302 X10*3/uL (160-400); Red Blood Count 4.48 X10*6/uL (4.20-5.50); White Blood Count 5.3 X10*3/uL (4.8-10.8)
[2023-12-25 12:38] LABS: Prothrombin Time 12.1 SEC (11.1-13.3)
[2023-12-25 12:40] LABS: Partial Thromboplastin Time 30.2 SEC (26.0-36.8)
[2023-12-25 12:41] LABS: Alanine Aminotransferase 18 U/L (0-31); Albumin Level 4.9 g/dL (3.5-5.0); Alkaline Phosphatase 64 U/L (39-117); Anion Gap 15 (12-20); Aspartate Amino Transferase 17 U/L (5-31); Bilirubin Total 0.7 mg/dL (0.0-1.0); Blood Urea Nitrogen 14 mg/dL (9-16); Calcium 10.1 mg/dL (8.4-10.2); Carbon Dioxide 29 mmol/L (22-29); Chloride 103 mmol/L (96-108); Creatinine Clr Calc Pharmacy 54.1; Estimated Glomerular Filt Rate > 60; Glucose Random 108 mg/dL (60-115); Magnesium 1.8 mg/dL (1.6-2.6); Potassium 3.6 mmol/L (3.3-5.1); Sodium 143 mmol/L (135-145); Total Protein 7.7 g/dL (6.5-8.0)
[2023-12-25 12:44] LABS: Appearance Urine Clear; Color Urine Yellow; Glucose Urine UA Negative (Negative); Leukocyte Esterase Urine Negative (Negative); Nitrite Urine Negative (Negative); PH 6.5 (5.0-9.0); Urine Blood Negative (Negative); Urine Ketones Negative (Negative); Urine Protein Negative (Neg-Trace)
[2023-12-25 12:48] LABS: Troponin-I High Sensitivity < 2.7 ng/L (<3.5-17.0)
[2023-12-25 13:07] LABS: Influenza A PCR NEGATIVE (Negative); Influenza B PCR NEGATIVE (Negative); Resp Syncy Virus RNA Qual PCR NEGATIVE (Negative); SARS COV2 PCR INHOUSE NEGATIVE (Negative)
[2023-12-25] MEDS: Acetaminophen 325 MG TABLET 975 MG PO (13:54)
[2023-12-25] MEDS: Lidocaine 4 % Patch ADH..PATCH 1 PATCH TRANSDERMA (13:54)
[2023-12-25 16:33] VITALS: BP 129/74; PULSE 69; RESP 16; TEMP 36.6; O2SAT 98
== END 2023-12-25 16:34 | disposition home or self-care (01) ==
PROVIDERS: Physician Assistant Medical; Emergency Provider Student in an Organized Health Care Education/Training Program; PCP Registered Nurse
DX: M54.50 Low back pain, unspecified (principal); R91.1 Solitary pulmonary nodule; Z03.818 Encounter for observation for suspected exposure to other biological agents ruled out
CPT/HCPCS: 0241U; 71250; 80053; 81003; 83735; 84484; 85025; 85610; 85730; 93005; 99284

== ENCOUNTER → 2023-12-25 12:07 | Outpatient (BNV) | payer OTHER, SELFPAY | PROVIDERS: Emergency Provider Student in an Organized Health Care Education/Training Program; PCP Registered Nurse; Visit Provider Internal Medicine Cardiovascular Disease | DX: R07.9 Chest pain, unspecified (principal) | CPT/HCPCS: 93010 ==

== ENCOUNTER 2024-02-22 07:45 | Outpatient (REF) | payer OTHER, SELFPAY | END 2024-02-22 07:46 | disposition home or self-care (01) | LOC: HO.MAMMO 07:45 | PROVIDERS: PCP Registered Nurse; Visit Provider Registered Nurse | DX: Z12.31 Encounter for screening mammogram for malignant neoplasm of breast (principal) | CPT/HCPCS: 77063; 77067 ==

== ENCOUNTER → 2024-02-22 08:00 | Outpatient (BNV) | payer OTHER, SELFPAY | PROVIDERS: PCP Registered Nurse; Visit Provider Radiology Diagnostic Radiology | DX: Z12.31 Encounter for screening mammogram for malignant neoplasm of breast (principal) | CPT/HCPCS: 77063; 77067 ==

== ENCOUNTER 2024-03-14 11:09 | Outpatient (REF) | payer OTHER, SELFPAY ==
--- NOTE | ~2024-03-14 | US_ITS ---
EXAMINATION: US PELVIS CLINICAL INFORMATION: Periumbilical pain of 3 weeks' duration; postmenopausal patient. COMPARISON: Perineal pain of 3 weeks' duration; postmenopausal patient. TECHNIQUE: Ultrasound of the pelvis is performed using both transabdominal and transvaginal transducers along with Doppler. Transvaginal imaging is performed due to inadequate visualization transabdominally. FINDINGS: Uterus: The uterus is anteverted and retroflexed. Uterus measures 7.6 x 2.4 x 4.1 cm. There is a small amount of anechoic fluid noted within the endometrial and endocervical canals. The double wall endometrial thickness is 0.4 mm. The uterus is smooth in contour and has normal myometrial echogenicity. No visible fibroid. Adnexa: Both ovaries are nonvisualized. There is no pelvic ascites or fluid collection. There is increased left adnexal vasculature US/US pelvic and transvaginal IMPRESSION: 1. There is a small amount of nonspecific anechoic fluid within the endometrial and endocervical canals. 2. The ovaries are not visualized. 3. There is increased left adnexal vasculature, which can be associated with pelvic congestion.
== END 2024-03-14 11:10 | disposition home or self-care (01) ==
LOC: HO.US 11:09
PROVIDERS: Visit Provider Registered Nurse
DX: R10.2 Pelvic and perineal pain (principal)
CPT/HCPCS: 76830; 76856

== ENCOUNTER 2024-04-13 10:16 | Emergency (ER) | payer OTHER, SELFPAY ==
[2024-04-13 10:18] VITALS: BP 143/75; PULSE 84; RESP 16; TEMP 36.6; O2SAT 99; BMI 22.1
[2024-04-13 10:39] LABS: MANUAL DIFF FLAG NO
[2024-04-13 10:41] LABS: Basophils Absolute Auto 0.1 X10*3/uL (0.0-0.2); Basophils Percent Auto 0.9 % (0-2); Eosinophils Absolute Auto 0.2 X10*3/uL (0.0-0.4); Eosinophils Percent Auto 3.5 % (0-4); Hematocrit 39.2 % (37.0-47.0); Hemoglobin 13.5 g/dl (12.0-16.0); Imm Gran Abs Auto 0.02 X10*3/uL (0.00-0.03); Imm Gran Pct Auto 0.3 % (0.0-0.4); Lymphocytes Absolute Auto 1.5 X10*3/uL (1.2-4.9); Lymphocytes Percent Auto 26.4 % (20-40); Mean Corpuscular HGB Conc 34.4 g/dl (31.0-35.0); Mean Corpuscular Hemoglobin 30.6 pg (27.0-33.0); Mean Corpuscular Volume 88.9 fL (80.0-98.0); Monocytes Absolute Auto 0.4 X10*3/uL (0.1-1.2); Monocytes Percent Auto 6.6 % (2-11); Neutrophils Absolute Auto 3.6 x10*3/uL (2.0-8.3); Neutrophils Percent Auto 62.3 % (45-73); Platelet Count 287 X10*3/uL (160-400); Red Blood Count 4.41 X10*6/uL (4.20-5.50); Red Cell Distribution Width 12.6 % (11.0-16.0); White Blood Count 5.8 X10*3/uL (4.8-10.8)
--- NOTE | 2024-04-13 10:46 | ED.FEMALEGU ---
HPI - Female Genitourinary General Chief complaint: Urogenital-Female Stated complaint: pain private area Time Seen by Provider: 04/13/24 10:38 Source: patient, RN notes reviewed and old records reviewed Mode of arrival: ambulatory History of Present Illness ED Provider: Lesvia Galan PA-C HPI Narrative: 68-year-old female with no significant past medical history presenting to the ED complaining vaginal pain/burning x1 month. Admits saw her PCP and was told Pap smear was abnormal however was not explained results and is scheduled for follow-up in April. States can not wait until this appointment due to pain. Denies abdominal pain, nausea/vomiting, dysuria/hematuria, lesions/discharge. Denies being sexually active at present or vaginal discharge/bleeding. Related Data Home Medications ?Medication ?Instructions ?Recorded ?Confirmed oxycodone-acetaminophen 5 mg-325 1 tab PO Q12H PRN severe pain 06/19/22 06/19/22 mg tablet Previous Rx's ?Medication ?Instructions ?Recorded cyclobenzaprine 10 mg tablet 5 mg (1/2 x 10 mg) PO TID PRN 07/15/20 muscle spasm #20 tabs prednisone 20 mg tablet 40 mg (2 x 20 mg) PO DAILY 5 days 07/15/20 #10 tabs doxycycline hyclate 100 mg capsule 100 mg PO BID 7 days #14 caps 02/13/22 lidocaine 4 % topical patch 1 patch topical DAILY PRN pain #10 06/19/22 (Blue-Emu Lidocaine Patch) ea diclofenac sodium 1 % topical gel 2 g topical QID #100 grams 07/03/22 (Voltaren Arthritis Pain) gabapentin 100 mg capsule 100 mg PO TID #90 caps 07/03/22 lidocaine 5 % topical patch 1 patch topical DAILY #30 ea 07/03/22 ondansetron 4 mg disintegrating 4 mg PO Q8H PRN nausea and 07/03/22 tablet vomiting #20 tabs prednisone 20 mg tablet 40 mg (2 x 20 mg) PO DAILY 4 days 07/03/22 #8 tabs cyclobenzaprine 10 mg tablet 10 mg PO TID PRN muscle spasm #10 12/25/23 tabs ibuprofen 600 mg tablet 600 mg PO Q8H PRN pain #10 tabs 12/25/23 lidocaine 5 % topical patch 1 patch topical DAILY #15 ea 12/25/23 Allergies Allergy/AdvReac Type Severity Reaction Status Date / Time doxycycline Allergy Rash Verified 04/13/24 10:27 tizanidine [From Zanaflex] Allergy Nausea Verified 04/13/24 10:27 Review of Systems Review of Systems: Constitutional: No Fever, No Chills Cardiovascular: No Chest Pain, No SOB Respiratory: No Cough Gastrointestinal: No Nausea, No Vomiting, No Diarrhea, No Constipation, No Abdominal pain Genitourinary: No Dysuria, No Hematuria, No Urinary Incontinence/retention, No Urgency, No Flank Pain, + vaginal pain/burning, no vaginal bleeding, no vaginal discharge, no lesions Musculoskeletal: No joint pain, No Myalgias, No Joint Swelling Skin: No Skin Lesions, No rash Neuro: No Weakness, No Numbness, No Paresthesias Yes all other systems are reviewed and are negative Constitutional: Constitutional: Reports as per [facility] Past Medical History Attestation statement: The following information was validated with the patient. Source: old records reviewed Medical History Herniated disc Tachycardia Social History Social History Alcohol intake: never Patient Tobacco Use Status: Never used Tobacco Advance Directives: No Physical Exam Vital Signs: Vital Signs: Last Vital Signs Temp 98.1 F 04/13/24 12:10 Pulse 70 04/13/24 12:10 Resp 16 04/13/24 12:10 BP 139/70 04/13/24 12:10 Pulse Ox 98 04/13/24 12:10 O2 Del Method Room Air 04/13/24 12:10 BMI result Body Mass Index 22.1 Const: General: cooperative, healthy appearing and no acute distress Orientation/consciousness: patient oriented x3 Limitations: no limitations HEENT: Head: Yes normal to inspection and Yes atraumatic Ears: hearing grossly normal bilaterally General nose exam: Normal external nose present Face and sinus: Yes normal facial exam Eyes: General: appearance normal, both eyes and all related structures EOM: EOMs intact bilaterally Neck: Neck: Yes normal visual inspection and Yes no meningeal signs Resp: Effort & Inspection: normal respiratory effort and no respiratory distress Auscultation: clear to auscultation bilaterally Cardio: Rate: regular rate Heart sounds: S1 normal heart sound present and S2 normal heart sound present GI: Inspection: Yes normal to inspection Palpation (GI): Soft to palpation, nontender, no guarding and not rigid : Other: Mild pelvic organ prolapse. No lesions, no bleeding, no discharge General: Yes no CVA tenderness Speculum Exam - Vagina: normal appearance of the vagina Speculum Exam - Cervix: normal appearance of the cervix and normal palpation Bimanual exam- vagina & uterus: normal bimanual exam, normal palpation and no cervical motion tenderness Bimanual Exam- Adnexa, other: normal adnexae, no masses and no tenderness Back/Spine/Pelvis: Back: no CVA tenderness Skin: Rashes: no rashes Wounds: no wounds Neuro: General: patient oriented x3, tone normal and no meningeal signs Cranial nerves: Yes CN's II-XII intact bilaterally Gait exam (Neuro): Normal gait present Extrem: General: Yes normal to inspection Course Course Course Narrative: -labs reassuring. UA not infected >> discussed with patient with machine deburrer importance of close follow-up with benefits representative and for scheduled biopsy. Results discussed with patient including worrisome signs and symptoms and strict return precautions, and when to return to the emergency department. They verbalized understanding and feel safe for discharge at this time. Medical Decision Making Medical Decision Making [facility] Narrative: 68-year-old female with no significant past medical history presenting to the ED complaining vaginal pain/burning x1 month. On exam vital signs stable, NAD, nontoxic appearing, mild pelvic ovarian prolapse appreciated, no CMT or adnexal mass/tenderness. No lesions. Abdomen soft/nontender. Concern for vaginitis vs cystitis vs UTI. Low suspicion for torsion, TOA or appendicitis/diverticulitis. 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 Endometrial thickness 4 mm. Plan is for endometrial biopsy in April. Plan: Labs, UA, STI testing Please refer to course for remaining clinical decision making, interpretation of labs/imaging results, and discussions with consultants and/or family members. Differential Diagnosis Differential Diagnoses: The differential diagnosis associated with the presentation includes As above Admission/Observation Consideration of admission/observation: Escalation of care including admission/observation considered Lab Data [facility] Lab Attestation statement: I reviewed the patient's lab results. 04/13/24 10:35 04/13/24 10:35 Labs: Lab Results 04/13/24 04/13/24 04/13/24 Range/Units 10:35 10:44 11:57 WBC 5.8 (4.8-10.8) X10*3/uL RBC 4.41 (4.20-5.50) X10*6/uL Hgb 13.5 (12.0-16.0) g/dl Hct 39.2 (37.0-47.0) % MCV 88.9 (80.0-98.0) fL MCH 30.6 (27.0-33.0) pg MCHC 34.4 (31.0-35.0) g/dl RDW 12.6 (11.0-16.0) % Plt Count 287 (160-400) X10*3/uL MPV 9.0 L (9.4-12.3) fL Immature Gran % (Auto) 0.3 (0.0-0.4) % Neut % (Auto) 62.3 (45-73) % Lymph % (Auto) 26.4 (20-40) % [place] % (Auto) 6.6 (2-11) % Eos % (Auto) 3.5 (0-4) % Baso % (Auto) 0.9 (0-2) % Lymph # (Auto) 1.5 (1.2-4.9) X10*3/uL [place] # (Auto) 0.4 (0.1-1.2) X10*3/uL Eos # (Auto) 0.2 (0.0-0.4) X10*3/uL Baso # (Auto) 0.1 (0.0-0.2) X10*3/uL Abs Immat Gran (auto) 0.02 (0.00-0.03) X10*3/uL Absolute Neuts (auto) 3.6 (2.0-8.3) x10*3/uL Absolute Nucleated RBC 0.000 (0.0-0.012) X10*3/uL Nucleated RBC % (auto) 0.0 (0.0-0.2) /100WBC Sodium 142 (135-145) mmol/L Potassium 4.0 (3.3-5.1) mmol/L Chloride 105 (96-108) mmol/L Carbon Dioxide 30 H (22-29) mmol/L Anion Gap 11 L (12-20) BUN 13 (9-16) mg/dL Creatinine 0.85 (0.5-1.4) mg/dL Estim Creat Clear Calc 52.4 Estimated GFR > 60 Random Glucose 103 (60-115) mg/dL Calcium 10.0 (8.4-10.2) mg/dL Total Bilirubin 1.0 (0.0-1.0) mg/dL AST 17 (5-31) U/L ALT 17 (0-31) U/L Alkaline Phosphatase 59 (39-117) U/L Total Protein 7.8 (6.5-8.0) g/dL Albumin 4.9 (3.5-5.0) g/dL Urine Color Dark Yellow Urine Appearance Clear Urine pH 5.5 (5.0-9.0) Ur Specific [place] 1.020 (1.005-1.025) Urine Protein Trace (Neg-Trace) mg/dL Urine Glucose (UA) Negative (Negative) mg/dL Urine Ketones Trace (Negative) mg/dL Urine Blood Negative (Negative) Urine Nitrite Negative (Negative) Ur Leukocyte Esterase Small (1+) H (Negative) Urine RBC 0-2 (0-2) /HPF Urine WBC 0-5 (0-5) /HPF Ur Squamous Epith Cells 0-2 (0-2) /HPF Urine Bacteria None Seen (None Seen) Hyaline Casts 0-2 (0-2) /LPF Chlam trachomat DNA PCR NOT DETECTED (Not Detect.) N.gonorrhoeae DNA (PCR) NOT DETECTED (Not Detect.) T. vaginalis (PCR) NOT DETECTED (Not Detect) Bact Vaginosis (PCR) NEGATIVE (Negative) C. krusei/glabrata (PCR) NOT DETECTED (Not Detect) Zina group (PCR) NOT DETECTED (Not Detect) Radiology Impression Discussion of test interpretation with radiology: I have reviewed the radiologist's reading. External Record Review External record reviewed: Inpatient record, Office record, Outpatient record, Prior outpatient labs, Prior outpatient radiology, Primary care record and Outside ED record Tests considered The following testing was considered but not selected: As above Prescription Management I considered prescription management with: Pain Medication Chronic Conditions Patient?s care impacted by: Other Discharge Plan Discharge Clinical Impression: Vaginitis Patient Disposition: Home, Self-Care Instructions: Pelvic Pain (ED) Additional Instructions: Your blood work and urine are reassuring It is important for you to follow-up for biopsy scheduled next month. Avoid any douching If symptoms persist or worsen or you develop lesions, bleeding, or unremitting pain return to the emergency department Call to establish and follow up with an OBGYN. Llama para establecer y hacer seguimiento con un ginec?logo obstetra. Follow up with your primary care provider. Return to the emergency department immediately?if your symptoms?were to worsen or if you were to develop any shortness of breath, difficulty breathing, chest pain, dizziness, lightheadedness, back pain, abdominal pain, fever, chills, or any other symptoms. Moshe?seguimiento?con rivera m?dico de atenci?n primaria. Acuda inmediatamente al servicio de urgencias si nash s?ntomas empeoran o si presenta falta de aliento, dificultad para respirar, dolor tor?cico, mareos, aturdimiento, dolor de espalda, dolor abdominal, fiebre, escalofr?os o cualquier otro s?ntoma. Prescriptions: No Action prednisone 20 mg tablet 40 mg PO DAILY 5 Days Qty: 10 0RF cyclobenzaprine 10 mg tablet 5 mg PO TID PRN (Reason: muscle spasm) Qty: 20 0RF prednisone 20 mg tablet 40 mg PO DAILY 4 Days Qty: 8 0RF lidocaine 5 % adhesive patch,medicated 1 patch topical DAILY Qty: 30 0RF Rx Instructions: leave on most painful area for up to 12 hrs diclofenac sodium [Voltaren Arthritis Pain] 1 % gel 2 g topical QID Qty: 100 0RF Rx Instructions: apply to single elbow, wrist or hand; for hand includes palm/fingers/back of hand gabapentin 100 mg capsule 100 mg PO TID Qty: 90 0RF ondansetron 4 mg tablet,disintegrating 4 mg PO Q8H PRN (Reason: nausea and vomiting) Qty: 20 0RF cyclobenzaprine 10 mg tablet 10 mg PO TID PRN (Reason: muscle spasm) Qty: 10 0RF ibuprofen 600 mg tablet 600 mg PO Q8H PRN (Reason: pain) Qty: 10 0RF lidocaine 5 % adhesive patch,medicated 1 patch topical DAILY Qty: 15 0RF Rx Instructions: leave on most painful area for up to 12 hrs oxycodone-acetaminophen 5-325 mg tablet 1 tab PO Q12H PRN (Reason: severe pain) lidocaine [Blue-Emu Lidocaine Patch] 4 % adhesive patch,medicated 1 patch topical DAILY PRN (Reason: pain) Qty: 10 0RF doxycycline hyclate 100 mg capsule 100 mg PO BID 7 Days Qty: 14 0RF Referrals: [facility] [place] [facility] [Provider Group] Lexie Lowery NP [Primary Care Provider] - Discharge Date/Time: 04/13/24 12:25 Print Language: Uzbek
[2024-04-13 10:52] LABS: Appearance Urine Clear; Color Urine Dark Yellow; Glucose Urine UA Negative (Negative); Leukocyte Esterase Urine Small (1+) (Negative); Nitrite Urine Negative (Negative); PH 5.5 (5.0-9.0); UMIC TRIGGER UACC YES; Urine Blood Negative (Negative); Urine Ketones Trace mg/dL (Negative); Urine Protein Trace mg/dL (Neg-Trace)
[2024-04-13 10:56] LABS: Alanine Aminotransferase 17 U/L (0-31); Albumin Level 4.9 g/dL (3.5-5.0); Alkaline Phosphatase 59 U/L (39-117); Anion Gap 11 (12-20); Aspartate Amino Transferase 17 U/L (5-31); Blood Urea Nitrogen 13 mg/dL (9-16); Carbon Dioxide 30 mmol/L (22-29); Chloride 105 mmol/L (96-108); Creatinine Clr Calc Pharmacy 52.4; Estimated Glomerular Filt Rate > 60; Glucose Random 103 mg/dL (60-115); Sodium 142 mmol/L (135-145); Total Protein 7.8 g/dL (6.5-8.0)
[2024-04-13 11:08] LABS: Bacteria Urine None Seen (None Seen); Hyaline Casts Urine 0-2 /LPF (0-2); RBC Urine 0-2 /HPF (0-2); Squamous Epithelial Cell Urine 0-2 /HPF (0-2); UACC Culture Trigger YES; WBC Urine 0-5 /HPF (0-5)
[2024-04-13 12:10] VITALS: BP 139/70; PULSE 70; RESP 16; TEMP 36.7; O2SAT 98
[2024-04-13 13:08] LABS: Bacterial Vaginosis PCR NEGATIVE (Negative); Candida Group PCR NOT DETECTED (Not Detect); Candida glab krusei PCR NOT DETECTED (Not Detect); Trichomonas vaginalis PCR NOT DETECTED (Not Detect)
[2024-04-13 13:38] LABS: CT PCR NOT DETECTED (Not Detect.); NG PCR NOT DETECTED (Not Detect.)
== END 2024-04-13 12:25 | disposition home or self-care (01) ==
PROVIDERS: Physician Assistant; Emergency Provider Emergency Medicine; PCP Nurse Practitioner Family
DX: N76.0 Acute vaginitis (principal); Z79.899 Other long term (current) drug therapy
CPT/HCPCS: 0352U; 36415; 80053; 81001; 85025; 87086; 87491; 87591; 99283

== ENCOUNTER 2024-05-09 10:29 | Outpatient (REF) | payer OTHER, SELFPAY | END 2024-05-09 10:30 | disposition home or self-care (01) | LOC: HO.LAB 10:29 | PROVIDERS: PCP Registered Nurse; Visit Provider Advanced Practice Midwife | DX: R39.15 Urgency of urination (principal); Z32.02 Encounter for pregnancy test, result negative | CPT/HCPCS: 58100; 81003; 81025; 87086; 88305 ==

== ENCOUNTER 2024-05-09 10:29 | Outpatient (AMB) | payer OTHER, SELFPAY ==
[2024-05-09 10:56] VITALS: BP 128/88; BMI 22.1
--- NOTE | 2024-05-09 10:56 | MHC.OFFVIS ---
Vital Signs 05/09/24 10:56 Height 5 ft 3 in Weight 125 lb BMI 22.1 BP 128/88 Blood Pressure Location Rt brachial Position Sitting Intake Visit Reasons: Abnormal endomerial US/Referral Go Cart Mechanic Required: Yes Go Cart Mechanic Language: Fire Extinguisher Tester Services: Go Cart Mechanic Present (in person) Go Cart Mechanic Name: Jennifer BORJAS Information Interpreted: non-clinical & clinical Nutrition Representative: Nutrition Representative Present (Jennifer BORJAS) Accompanied by: Self / Same As Patient Allergies doxycycline Allergy (Verified 05/09/24 10:57) Rash tizanidine [From Zanaflex] Allergy (Verified 05/09/24 10:57) Nausea Post menopausal: Yes HPI Comments Details: Patient is here for a new patient consult, referred from her current multiple sclerosis nurse provider with concerns regarding her pelvic ultrasound results. Ultrasound reviewed reveal 0.4 endometrial thickness with a small amount of anechoic fluid noted within the endometrial and endocervical canal. She reports no postmenopausal bleeding. Last Pap was March of 2023 was negative, no history of abnormal Pap. She admits to having a burning pelvic discomfort for the last 2-3 months, denies any urinary symptoms or vaginal discharge. Has not been sexually active in over a decade. PFSH Medical History Herniated disc Tachycardia Social History Alcohol intake: never Patient Tobacco Use Status: Never used Tobacco Female Reproductive History Menstrual control method: none Menopause type: natural Age of menopause: 46 Total pregnancies: 3 Full term: 3 Number of Living Children: 3 Date of last pap smear: 04/02/23 History of abnormal pap smear: Yes (ASCUS) History of STI: No Date of Mammogram: 02/22/24 History of abnormal mammogram: No Review of Systems Const All systems reviewed & are unremarkable except as noted in HPI and below Physical Exam Vital Signs: Last Vital Signs BP 128/88 05/09/24 10:56 BMI result Body Mass Index 22.1 Const General: cooperative, healthy appearing and no acute distress Orientation/consciousness: patient oriented x3 GI Inspection: Yes normal to inspection Palpation (GI): Soft to palpation and Other GI palpation findings present (Nontender) Rectal Exam - Female: visual inspection normal General: Yes bladder normal to palpation External Female Exam: normal appearance of the urethra Speculum Exam - Vagina: normal appearance of the vagina, normal palpation, normal vaginal discharge and vagina atrophic Speculum Exam - Cervix: normal appearance of the cervix and normal palpation Bimanual exam- vagina & uterus: normal bimanual exam, normal palpation, uterine size normal, bladder normal to palpation, normal palpation, uterine shape normal and non-tender Bimanual Exam- Adnexa, other: normal adnexae Neuro General: patient oriented x3 Office Procedures Endometrial Biopsy Details: The patient is here today for an endometrial biopsy due to state and endometrial fluid found on ultrasound, to rule out any pathology including atypical, hyperplasia or cancer cells of the uterus. She was offered to observe for any bleeding in the future are to complete the biopsy today and she requests to proceed with a biopsy today. She was counseled regarding anticipatory guidance for the procedure including the risks for pain, infection, bleeding, perforation, potential injury to the tissues may include the cervix, uterus, tubes, bladder and bowels. These injuries may include further treatment and evaluation including surgery, blood transfusions, antibiotics, hospitalizations and anesthesia. Permanent injury and scarring can occur. She was consented for the procedure, and the consent forms were signed. She is agreeable to have the procedure today. All questions were answered. Endometrial Biopsy Procedure: The patient was placed in the dorsal lithotomy position and a sterile speculum inserted. Using aseptic technique for the procedure. The cervix was cleansed with Betadine x 3 swabs. A single toothed tenaculum was placed on the cervix for stabilization and the uterus was sounded to 8 cm with a 4mm pipelle, x3 passes, and yanez fluid and tissue sample obtained. Minimal bleeding was observed. The tissue sample was placed in formalin in a patient labeled container by staff assisting and sent to the pathology department for processing and interpretation. The patient tolerate the procedure well and was in good condition when leaving the department. Endometrial Biopsy Post Procedure Care: Nothing in the vagina including: tampons, douching or intimacy until all the bleeding has subsided. There may be some post procedure bleeding for several days, this bleeding is usually light and may turn to a light brown or pink color. Mild cramps may occurs. Nothing in the vaginal including: tampons, douching, or intimacy until all the bleeding has subsided. You may take an over the counter mild analgesic such as Tylenol or Advil (if no allergies) per the manufactures recommendation on dosing, frequency, and follow the directions completely. Call the office if any: fever (over 100.4), flu like symptoms, abdominal pain (worse than cramping), foul smelling, infected appearing vaginal discharge, or heavy bleeding. If indicated: Use condoms to prevent and STI's, and only after the bleeding has stopped completely. Return to the office in 2 weeks for results and plan of care. This note is constructed using voice recognition software. While every effort has been made to ensure accuracy, professor of communication and writing errors may have been included. [id number] Biopsy Results AMB Test Urine AMB Test Urine Negative Last Edit by Nicolasa Tirado CMA on 05/09/24 11:26 AMB Urinalysis, Automated UA Leukoctes 0 Roman/uL Last Edit by Nicolasa Tirado CMA on 05/09/24 11:55 UA Nitrite Negative Last Edit by Nicolsaa Tirado CMA on 05/09/24 11:55 UA Urobilinogen 3.5 mg/dL Last Edit by Nicolasa Tirado CMA on 05/09/24 11:55 UA Protein 0 mg/dL Last Edit by Nicolasa Tirado CMA on 05/09/24 11:55 UA pH 5.5 Last Edit by Nicolasa Tirado CMA on 05/09/24 11:55 UA Blood 10 Alexis/uL Last Edit by Nicolasa Tirado CMA on 05/09/24 11:55 UA Specific [place] 1.025 Last Edit by Nicolasa Tirado CMA on 05/09/24 11:55 UA Ketone Negative Last Edit by Nicolasa Tirado CMA on 05/09/24 11:55 UA Bilirubin 0 mg/dL Last Edit by Nicolasa Tirado CMA on 05/09/24 11:55 UA Glucose 0 mg/dL Last Edit by Nicolasa Tirado CMA on 05/09/24 11:55 Results Reviewed Results Reviewed: [address] [address] Ultrasound Report Signed Patient: Gina Pate MR#: [id number] : 1955 Acct:[id number] Age/Sex: 68 / F ADM Date: 03/14/24 Loc: . Attending Dr: Cecy SINGH Ordering Physician: Cecy Pabon Date of Service: 03/14/24 Procedure(s): US pelvic and transvaginal Accession Number(s): [id number] cc: Cecy Pabon FRANCISCO~ EXAMINATION: US PELVIS CLINICAL INFORMATION: Periumbilical pain of 3 weeks' duration; postmenopausal patient. COMPARISON: Perineal pain of 3 weeks' duration; postmenopausal patient. TECHNIQUE: Ultrasound of the pelvis is performed using both transabdominal and transvaginal transducers along with Doppler. Transvaginal imaging is performed due to inadequate visualization transabdominally. FINDINGS: Uterus: The uterus is anteverted and retroflexed. Uterus measures 7.6 x 2.4 x 4.1 cm. There is a small amount of anechoic fluid noted within the endometrial and endocervical canals. The double wall endometrial thickness is 0.4 mm. The uterus is smooth in contour and has normal myometrial echogenicity. No visible fibroid. Adnexa: Both ovaries are nonvisualized. There is no pelvic ascites or fluid collection. There is increased left adnexal vasculature US/US pelvic and transvaginal IMPRESSION: 1. There is a small amount of nonspecific anechoic fluid within the endometrial and endocervical canals. 2. The ovaries are not visualized. 3. There is increased left adnexal vasculature, which can be associated with pelvic congestion. Dictated By: Erasmo Nicholson MD Signed By: <Electronically signed by Erasmo Nicholson MD in OV> 03/31/24 1907 DD/ 1130 TD/TT: Transitions Rn Care Coordinator: JIGAR Assessment & Plan Assessment & Plan (1) Abnormal finding on ultrasound: Code(s): R93.89 - Abnormal findings on diagnostic imaging of other specified body structures Plan Discussed ultrasound findings. Urine was sent for culture due to trace amount of blood. Advised to schedule a follow up test results in 2 weeks. See procedure notes. All of her questions and concerns were addressed to the best of my ability and shared decision making. She is agreeable to the plan of care. This note is constructed using voice recognition software. While every effort has been made to ensure accuracy, professor of communication and writing errors may have been included. Orders: Orders AMB HCG Urine Test Today Z32.02 - Encounter for test, result negative AMB Urinalysis Automated Today Z13.9 - Encounter for screening, unspecified Surgical Today R93.5 - Abnormal findings on diagnostic imaging of other abdominal regions, including retroperitoneum Urine Culture Today R39.15 - Urgency of urination Coding Level of Care Code Procedure Only Diagnoses Abnormal finding on ultrasound R93.89 CPT Codes Endometrial Biopsy - CPT: 48332-Tiuyucaitsy Biopsy ([id number])
== END 2024-05-09 11:57 | disposition home or self-care (01) ==
PROVIDERS: PCP Registered Nurse; Visit Provider Advanced Practice Midwife
DX: R93.89 Abnormal findings on diagnostic imaging of other specified body structures (principal); Z32.02 Encounter for pregnancy test, result negative; Z13.9 Encounter for screening, unspecified
CPT/HCPCS: 58100

== ENCOUNTER 2024-05-09 13:54 | Outpatient (REF) | payer OTHER, SELFPAY | END 2024-05-09 13:55 | disposition home or self-care (01) | LOC: HO.LNP 13:54 | PROVIDERS: Visit Provider Advanced Practice Midwife | DX: Z13.89 Encounter for screening for other disorder (principal) | CPT/HCPCS: 87086; 88305 ==

== ENCOUNTER 2024-06-08 16:04 | Outpatient (REF) | payer OTHER, SELFPAY ==
[2024-06-08 17:48] LABS: Appearance Urine Clear; Color Urine Yellow; Glucose Urine UA Negative (Negative); Leukocyte Esterase Urine Negative (Negative); Nitrite Urine Negative (Negative); PH 5.5 (5.0-9.0); Urine Blood Negative (Negative); Urine Ketones Negative (Negative); Urine Protein Negative (Neg-Trace)
[2024-06-08 17:50] LABS: Bacteria Urine None Seen (None Seen); Hyaline Casts Urine 0-2 /LPF (0-2); RBC Urine 0-2 /HPF (0-2); Squamous Epithelial Cell Urine 0-2 /HPF (0-2); WBC Urine 0-5 /HPF (0-5)
== END 2024-06-08 16:05 | disposition home or self-care (01) ==
LOC: HO.CHCLNP 16:04
PROVIDERS: Visit Provider Pediatrics
DX: R10.2 Pelvic and perineal pain (principal)
CPT/HCPCS: 81001

== ENCOUNTER 2024-06-28 14:51 | Outpatient (AMB) | payer OTHER, SELFPAY ==
--- NOTE | 2024-06-28 15:00 | MHC.OFFVIS ---
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 PFSH Medical History Herniated disc Tachycardia Social History Alcohol intake: never Patient Tobacco Use Status: Never used Tobacco Review of Systems Const All systems reviewed & are unremarkable except as noted in HPI and below Endo Reports no additional complaints Physical Exam Const General: cooperative, healthy appearing and no acute distress Psych Appearance: well kempt Attitude: cooperative Thought process: Normal thought process present Results Reviewed Results Reviewed: Name: Judson MatuteGina Age/Sex: 68/F Attending: Deborah Gallardo CNM : 1955 Submitted by: Deborah Gallardo CNM Copies to: MR #: [id number] Status: DEP REF Collected: 05/09/24 Location: [facility] Received: 05/09/24 Diagnosis Endometrium, biopsy: - Superficial strips of endometrium within normal limits. - Few strips of endocervical epithelium within normal limits. - No atypia identified. Clinical History Abnormal endometrial US Microscopic Description Microscopic sections reviewed. Material Received EMB Gross Description Received in formalin labeled ?EMB? is a 0.4 x 0.3 x 0.1 cm aggregate of predominantly mucus and blood and minute shards of red-maroon tissue versus blood, submitted in toto in a cassette labeled A. CEDS NOTE: Unless otherwise stated, all tissue is formalin-fixed and paraffin-embedded. Some or all of the immunohistochemical tests reported herein may have been developed and their performance characteristics determined by [facility]. They have not been cleared or approved by the U.S. Food and Drug Administration (FDA). However, the FDA has determined that such clearance or approval is not necessary. This laboratory is certified under the Clinical Laboratory Improvement Amendments of 1988 (CLIA) as qualified to perform high complexity clinical laboratory testing. Electronically Signed By: Darius Kennedy MD 05/10/24 4812 Patient: [facility] Pate [facility]: 68[id number]#: [id number] Page 1 of 1 Assessment & Plan Assessment & Plan (1) Encounter to discuss test results: Code(s): Z71.2 - Person consulting for explanation of examination or test findings (2) Abnormal finding on ultrasound: Code(s): R93.89 - Abnormal findings on diagnostic imaging of other specified body structures Plan Discussed: Endometrial biopsy results-no atypia. Advised to call the office as soon as possible if there is any postmenopausal bleeding. Schedule annual exam for 2024. All of her questions and concerns were addressed to the best of my ability and shared decision making. She is agreeable to the plan of care. This note is constructed using voice recognition software. While every effort has been made to ensure accuracy, electrophysiology technician errors may have been included. Coding Level of Care Code Est Pt Level 3 (60943) Diagnoses Encounter to discuss test results Z71.2 Abnormal finding on ultrasound R93.89
== END 2024-06-28 15:50 | disposition home or self-care (01) ==
LOC: HO.HWS 14:51
PROVIDERS: PCP Registered Nurse; Visit Provider Advanced Practice Midwife
DX: Z71.2 Person consulting for explanation of examination or test findings (principal); R93.89 Abnormal findings on diagnostic imaging of other specified body structures
CPT/HCPCS: 99213

== ENCOUNTER → 2024-06-28 14:51 | Outpatient (BNVA) | payer OTHER, SELFPAY | PROVIDERS: PCP Registered Nurse; Visit Provider Advanced Practice Midwife | DX: Z71.2 Person consulting for explanation of examination or test findings (principal); R93.89 Abnormal findings on diagnostic imaging of other specified body structures | CPT/HCPCS: 99212 ==

== ENCOUNTER 2024-11-07 08:21 | Outpatient (REF) | payer OTHER, SELFPAY ==
--- NOTE | 2024-11-07 08:24 | EMG_ITS ---
FINDINGS: Right median and ulnar motor and sensory studies were performed. Right radial sensory and median and lateral antecubital brachial sensory studies were performed and paraspinal muscles were tested with a needle. IMPRESSION: [id number] right median neuropathy across carpal tunnel. MD JENNIFER Díaz/GIDEON / [id number]
--- OUTSIDE RECORDS SUMMARY | 2024-11-07 08:55 | XMS_ITS | Encounter Summary ---
Author Organization [facility] Address [address] [place] [address] Care Team Providers Care C Programmer Name Role Phone Cecy Pabon Primary Care Provider [phone] Encounter Details Date Type Department Care Team ([facility] Contact Info) Description 09/10/2022 Telephone [facility] [address] [place] [address] Jordan Montesinos MD Social History Tobacco Use Types Packs/Day Years Used Date Smoking Tobacco: Never Comments Unknown Sex and Gender Information Value Date Recorded Sex Assigned at Female 06/29/2022 10:21 AM EDT Legal Sex Female 10:21 AM EDT Gender Identity Female 06/29/2022 10:21 AM EDT Sexual Orientation Choose not to disclose 2021 10:21 AM EDT COVID-19 Exposure Response Date Recorded In the last 10 days, have yo u been in contact with someone who was confirmed or suspected to have Coronavirus/COVID-19? No / Unsure 08/12/2022 9:28 AM EST documented as of this encounter Plan of Treatment Upcoming Encounters Date Type Department Care Team ([facility] Contact Info) Description 12/25/2024 9:15 AM EDT Office Visit [facility] [address], [place] [phone] Cecy Pabon FNP [address] [place], [place] [phone] documented as of this encounter Visit Diagnoses Not on filedocumented in this encounter Care Teams C Programmer Relationship Specialty Start Date End Date Cecy Pabon FNP [address] [place] [address] PCP - General Family Medicine 09/10/22 documented as of this encounter
--- OUTSIDE RECORDS SUMMARY | 2024-11-07 08:56 | XMS_ITS | Encounter Summary ---
Author Organization [employer] [facility] [employer] Address [address] [place] [address] Care Team Providers Care Casting Room Operator Name Role Phone Cecy Pabon EXCAVATOR OPERATOR Primary Care Provider [phone] Encounter Details Date Type Department Care Team (Latest Contact Info) Description 10/27/2024 Travel Social History Tobacco Use Types Packs/Day Years Used Date Smoking Tobacco: Never Passive Smoke Exposure: Never Smokeless Tobacco: Never Alcohol Use Standard Drinks/Week Comments Never 0 (1 standard drink = 0.6 oz pur e alcohol) Depression Answer Date Recorded Patient Health Questionnaire-9 Score 15 08/04/2024 Patient Health Questionnaire-9 Score 15 08/04/2024 Last PHQ-9: Questionnaire Data Not on file 1 10/05/2023 Housing Stability Answer Date Recorded What is your housing situation today? I have tamika torres 03/06/[address] you li ve. Do you have problems with any of the following? None of the above 03/06/2024 Food Insecurity Answer Date Recorded Within the past 12 months, y ou worried that your food would run out before you got money to buy more: Never True 03/06/2024 Within the past 12 months,th e food you bought just didn't last and you didn't have enough money to get more: Never True 03/2024 Transportation Answer Date Recorded In the past 12 months, has l ack of transportation kept you from medical appts, meetings, work or from getting things needed for daily living? No 03/06/2024 Utilities Answer Date Recorded In the past 12 months, has t he electric, gas, oil or water company threatened to shut off services in your home? No 03/06/2024 Depression Answer Date Recorded Patient Health Questionnaire-2 Score 4 08/04/2024 Internet Access Answer Date Recorded Internet Access Q1 I am not sure 08/04/2024 Internet Access Q2 Not on file 08/04/2024 Comments No Sex and Gender Information Value Date Recorded Sex Assigned at Female 06/29/2022 10:21 AM EDT Legal Sex Female 10:21 AM EDT Gender Identity Female 06/29/2022 10:21 AM EDT Sexual Orientation Choose not to disclose 2021 10:21 AM EDT documented as of this encounter Plan of Treatment Upcoming Encounters Date Type Department Care Team ([facility] st Contact Info) Description 12/25/2024 9:15 AM EDT Office Visit [facility] [address] [place] [address] Cecy Pabon FNP [address] [place] [address] documented as of this encounter Visit Diagnoses Not on filedocumented in this encounter Additional Health Concerns Assessment Noted Time PHQ-9 Depression Total Score: 15 024 9:58 AM EST documented as of this encounter Care Teams Casting Room Operator Relationship Specialty Start Date End Date Cecy Pabon FNP [address] [place] [address] PCP - General Family Medicine 09/10/22 documented as of this encounter
--- OUTSIDE RECORDS SUMMARY | 2024-11-07 08:56 | XMS_ITS | Clinical Summary ---
Author Organization [employer] Address [address] [facility] [address] [place] [address] Care Team Providers Care Worm Packer Name Role Phone Cecy Pabon DEVIL TENDER Primary Care Provider [phone] Allergies Active Allergy Reactions Criticality Noted Date Comments Doxycycline Rash Low 02/19/2022 Gabapentin 02/21/2024 Penicillins Dizziness 09/18/2022 Medications albuterol 108 (90 Base) MCG/ACT inhaler Inhale 2 puffs every 4 (four) hours. 022 Active aspirin 325 MG EC tablet ROBBY 1 TABLETA POR LA BOCA CADA GOMEZ POR 14 CONDON COMENZANDO EL GOMEZ DESPUES DE LA OPERACION NAI INDICADO 023 Active cholecalciferol (Vitamin D-3) 25 MCG (1000 UT) tabletIndications :Vitamin D insufficiency Take 1 tablet (25 mcg) by mouth in the morning. 90 tablet 3 023 Active docusate sodium (Colace) 100 MG capsuleIndication s:Chronic constipation ROBBY 1 CAPSULA POR BOCA HASTA 2 VECES AL GOMEZ SI ES NECESARIO PARA EL ESTRENIMIENTO MIENTRAS JOCELIN TOMANDO MEDICAMENTO NARCOTICO GLADIS INDICADO. 90 capsule 1 023 Active SUMAtriptan (Imitrex) 50 MG tabletIndications :Other migraine without status migrainosus, not intractable Take 50 mg by mouth if needed for migraine. 023 Active Cetirizine HCl 10 MG capsuleIndication s:Seasonal allergies Take 1 tablet by mouth if needed each day (allergies or nasal congestion). 90 capsule 1 024 Active senna-docusate (Senokot S) 8.6-50 MG tablet Take 1 tablet by mouth Once per day. 30 tablet 3 024 2024 Active rosuvastatin (Crestor) 10 MG tabletIndications :Mixed hyperlipidemia TAKE 1 TABLET BY MOUTH AT BEDTIME. FOR CHOLESTEROL 90 tablet 3 024 Active benzonatate (Tessalon Perles) 100 MG capsuleIndication s:Chronic cough Take 1 capsule (100 mg) by mouth if needed in the morning, at noon, and at bedtime for cough. Do not crush or chew. 30 capsule 3 024 2024 Active lidocaine-priloca ine (Emla) 2.5-2.5 % creamIndications: Incomplete tear of right rotator cuff, unspecified whether traumatic Apply thin layer by topical route 2-3 times daily as needed to shoulder for pain 30 g 2 024 Active Diclofenac Sodium 1 % gelIndications:In complete tear of right rotator cuff, unspecified whether traumatic Apply thin layer by topical route (quantity as directed on package insert) to affected area of pain 3 times daily as needed. 50 g 3 024 Active Capsaicin 0.025 % lotionIndications :Incomplete tear of right rotator cuff, unspecified whether traumatic Apply thin layer by topical route 2-3 times daily as needed to shoulder for pain 1 Bottle 3 024 Active triamcinolone (Kenalog) 0.1 % creamIndications: Contact dermatitis, unspecified contact dermatitis type, unspecified trigger Apply topically if needed in the morning and at bedtime for irritation (itching or skin irritation.). Use for up to 7 days 30 g 025 Active cyclobenzaprine (Flexeril) 10 MG tabletIndications :Muscle pain TAKE 1 TABLET BY MOUTH NIGHTLY NEEDED FOR PAIN 30 tablet 3 025 Active tiZANidine (Zanaflex) 2 MG tabletIndications :Muscle spasm Take 1-2 tablets (2-4 mg) by mouth if needed at bedtime (muscle spasm and pain). 30 tablet 3 023 2024 Discontinued(T herapy completed) cyclobenzaprine (Flexeril) 10 MG tablet TAKE 1 TABLET BY MOUTH THREE TIMES A DAY NEEDED FOR MUSCLE SPASM 024 2024 Discontinued(R eorder (will not trigger notification to Pharmacy)) Active Problems Problem Noted Date Diagnosed Date Lateral epicondylitis of left elbow 09/19/2024 PMB (postmenopausal bleeding) 08/04/2024 Overview (08/04/2024): Evaluated by [facility] in Apr - May 2024 EMB Apr 2024 completed: Superficial strips of endometrium within normal limits. Few strips of endocervical epithelium within normal limits. No atypia identified Assessment & Plan (08/04/2024 11:16 AM EST): Has not had any further PMB , plan to follow up for routine care PRN Abnormal CT scan of lung 01/04/2024 Assessment & Plan (08/04/2024 11:23 AM EST): Pertinent hx: tuberculosis infx s/p tx approx 40 years ago, hx of smoking cigarettes w/ quit date approx 40 years ago November 2023: [facility] CXR with question of 7mm nodule right lung 12/25/23: CT Chest w/o contrast at [facility], nonspecific findings of irregular areas of nodular density within the right lung apex and anteriorly within the right middle lobe and peripherally long left major fissure 01/04/24: Referral to [facility] Pulmonology for further evaluation and management Following with [facility] Pulm - next appt scheduled October 2024 Assessment & Plan (01/04/2024 8:19 AM EDT): Pertinent hx: tuberculosis infx s/p tx approx 40 years ago, hx of smoking cigarettes w/ quit date approx 40 years ago November 2023: [facility] CXR with question of 7mm nodule right lung 12/25/23: CT Chest w/o contrast at [facility], nonspecific findings of irregular areas of nodular density within the right lung apex and anteriorly within the right middle lobe and peripherally long left major fissure 01/04/24: Referral to [facility] Pulmonology for further evaluation and management Osteopenia after menopause 10/21/2023 Vitamin D insufficiency 03/14/2023 Assessment & Plan (08/04/2024 11:22 AM EST): May 2023: Vit D 31 ng/mL Continues with Vit D 1000 units daily Assessment & Plan (03/14/2023 7:29 PM EDT): ?? October 2020: Vit D 23 ng/mL, due for repeat lab ?? Continues with Vit D 1000 units daily Seasonal allergies 03/14/2023 Overview (03/14/2023): ?? Continue cetirizine PRN Healthcare maintenance 03/14/2023 Overview (08/04/2024): Mammo: BIRADS 1 on 02/22/24 Cervical CA: 04/01/23 NILM HPV neg [facility]. Previous 07/07/2017 - Pap ASCUS, HPV neg. Due for co-testing Mar 2026. Colon CA: 03/04/2021: Colonoscopy by Dr. Fox (records requested 08/04/24) Optometry: [facility] 12/17/21 Dental: established with dental home [facility] Dental BMD: osteopenia Mar 2023 Last PE: 08/04/24 Assessment & Plan (10/24/2023 11:00 AM EST): Declines COVID and flu vaccines on 10/22/23 Assessment & Plan (06/26/2023 8:33 AM EDT): Due for labs, ordered Migraines 03/11/2023 Assessment & Plan (10/24/2023 10:59 AM EST): Followed by Dr. Liz - [facility] Continues with sumatriptan 50mg PRN migraines Per consult note: CT brain WO at [facility] in Jun 2020: [place] brain WO at [facility] in November 2020: [place] Assessment & Plan (03/11/2023 6:31 AM EDT): ?? Followed by Dr. Liz - [facility] ?? Continues with sumatriptan PRN migraines Per consult note: ?? CT brain WO at [facility] [place] Jun 2020: [place] ?? MRI brain WO at [facility] in November 2020: [place] Dysplastic nevus of trunk 02/03/2023 Cervical arthritis 01/25/2019 Overview (10/28/2024): On her C-spine MRI [facility] July 05, 2019 she had spondylosis at C4-5, C5-6, C6-7 with neuroforaminal narrowing most significant on the left at C4-5, left C5-6. Decreased lung capacity 04/08/2018 Cobalamin deficiency 03/24/2018 Assessment & Plan (06/26/2023 8:31 AM EDT): ?? History of B12 deficiency, pt not currently on supplementation ?? Labs: Vit B12 ordered today Regular astigmatism 02/04/2018 Memory impairment 01/25/2018 Supraspinatus tendinitis 01/25/2018 Spondylolisthesis of lumbar region 11/02/2017 Overview (02/07/2023): MRI lumbar spine January 2022 with the following impression: Stable Grade 1 degenerative spondylolisthesis at L4-L5 and discofenic degenerative changes at L4-L5 and L5-S1 again noted now with minimal intradiscal vacuum disc phenomenon or calcification at the L5-S1 intervertebral disc space Disc bulging again noted at L5-S1 now with a central to left paramedian disc herniation possibly encroaching on the traversing left S1 nerve root since prior exam with development of mild central canal stenosis but with stable facet arthropathy, left more than right. Stable severe facet arthropathy at L4-L5 bilaterally with stable [id number] spinal canal stenosis Development of small shallow left subarticular disc protrusion at L2-L3, shallow central to right paramedian disc protrusion at L1-L2 and shallow right subarticular disc protrusion at T12-L1 without neural impingement or spinal stenosis at these levels since the previous exam Assessment & Plan (08/04/2024 11:21 AM EST): Tapered off Percocet in 2022 Continues with tizanidine PRN for muscle spasms Encouraged use of topical options and heating pads PRN Declines interest in physical therapy or sports medicine at this time Follow up precautions Assessment & Plan (01/04/2024 11:04 AM EDT): Tapered off Percocet in 2022 Continues with tizanidine PRN for muscle spasms Assessment & Plan (02/07/2023 10:03 PM EDT): ?? Continues with OTC analgesics, using Percocet 5-325mg as needed for severe pain. Will continue with current prescription of BID PRN ? ? Informed patient that especially with chronic back pain, our goal to improve daily function and quality of life, but that it is unlikely the back pain is going to completely resolve. The approach to care is going to be multi-modal, and patient expressed awareness that it will take time. Partial thickness tear of right rotator cuff Overview (06/26/2023): ?? Right shoulder MRI October 2020 performed at [facility] demonstrated a high-grade partial thickness bursal sided tear of the rotator cuff. Prominent anterior acromial spur. Subscapularis intact. Mild atrophy and fatty infiltration of supraspinatus on T1 sagittals. Moderate a.c. arthrosis. Possible SLAP tear. Biceps tendon was normally within the bicipital groove distally. ?? 04/21/23: Right shoulder loose anchor s/p rotator cuff repair. Surgery for right shoulder arthroscopy with extensive debridement, arthroscopic hardware removal by Dr. Lentz at [facility] Assessment & Plan (10/28/2024 2:57 PM EST): Continued pain in right shoulder s/p repeat surgery Completed rehab/PT Completed percocet taper, continues on topical analgesics and flexeril nightly PRN for pain control Referral to reestablish with [facility]-Dr. Lentz placed on 10/27/2024 Assessment & Plan (08/04/2024 11:22 AM EST): Continued pain in right shoulder s/p repeat surgery Completed rehab/PT Pt had stopped receiving percocet over the past few months, and plan to formally DC from med list as she has been coping well with flexeril nightly PRN for pain control Encouraged to follow up if pain becomes debilitating or impacts ability to function in ADLs/iADLS Assessment & Plan (06/26/2023 8:24 AM EDT): ?? Continued pain in right shoulder s/p repeat surgery ?? Continues with rehab/PT ?? Pt had stopped receiving percocet over the past few months, and plan to formally DC from med list as she has been coping well with flexeril nightly PRN for pain control ?? Encouraged to follow up if pain becomes debilitating or impacts ability to function in ADLs/iADLS Assessment & Plan (02/07/2023 10:05 PM EDT): ?? Continue following with Ortho and Physical therapy ?? Use Percocet sparingly. Reviewed med indication, safety, and SE Intervertebral disc disorder 07/07/2012 Cervical intraepithelial neoplasia grade 1 06/30 Benign hypertension 08/30/1959 Assessment & Plan (10/28/2024 3:00 PM EST): Previously prescribed enalapril. Currently controlled with lifestyle interventions (no pharmacotherapy) BP elevated in office, suspect secondary to pain. Encouraged to check home readings and call office for 2+ readings >140/90 mmHg at home for consideration of addition of medication Assessment & Plan (08/04/2024 11:20 AM EST): Previously prescribed enalapril. Currently controlled with lifestyle interventions (no pharmacotherapy) BP elevated in office, encouraged to check home readings and call office for 2+ readings >140/90 mmHg at home for consideration of addition of medication Assessment & Plan (10/24/2023 10:55 AM EST): Previously prescribed enalapril. Currently controlled with lifestyle interventions (no pharmacotherapy) BP elevated in office, encouraged to check home readings and call office for 2+ readings >140/90 mmHg at home for consideration of addition of medication Assessment & Plan (03/14/2023 7:25 PM EDT): ?? Previously prescribed enalapril. Currently controlled with lifestyle interventions (no pharmacotherapy) ?? BP elevated in office, encouraged to check home readings and call office for 2+ readings >140/90 mmHg at home for consideration of addition of medication Chronic constipation 08/30/1959 Overview (03/14/2023): ?? Continue Colace 100mg BID PRN Assessment & Plan (08/04/2024 11:20 AM EST): Well controlled current regimen Degenerative joint disease of hand 08/30/1959 Hyperlipidemia 08/30/1959 Overview (08/04/2024): Lab Results Component Value Date TRIG 77 10/22/2023 CHOL 132 10/22/2023 LDLCHOLCAL 69 10/22/2023 HDL 48 10/22/2023 -cont rosuvastatin 10mg nightly -continue lifestyle modifications Assessment & Plan (10/24/2023 10:59 AM EST): Repeat FLP pending Assessment & Plan (08/04/2023 4:19 PM EST): -Reviewed med safety and SE -Repeat FLP and HFP in approx 6 weeks Microscopic hematuria 08/30/1959 Encounters Date Type Department Care Team Description 10/27/2024 3:15 PM EST Office Visit [facility] [address] [place], [place] [phone] Cecy Pabon FNP Incomplete tear of right rotator cuff, unspecified whether traumatic (Primary Dx); Numbness and tingling in right hand; Healthcare maintenance; Supraspinatus tendinitis, unspecified laterality; Contact dermatitis, unspecified contact dermatitis type, unspecified trigger; Muscle pain; Cervical arthritis; Benign hypertension 10/27/2024 Travel 10/24/2024 Telephone [facility] [address] [place], [place] [phone] Cecy Pabon FNP Nurse Triage 09/19/2024 9:20 AM EST Office Visit [facility] [address] [place], [place] [phone] Jose Vizcaino MD Lateral epicondylitis of left elbow (Primary Dx) from Last 3 Months Immunizations Name Administration Dates Next Due Influenza injectable quadriv alent IIV4 with preservative 07/31/2015 Influenza injectable quadriv alent preservative free 10/27/2021,06/19/2020,06/09/2019,2018,06/11/2017 Influenza, IIV3, injectable 05/08/2014 Influenza, Split (incl. richard fied surface antigen) 05/29/2013,07/07/2012 Moderna Covid-19 Vaccine 6+ Bivalent 03/11/2023 Pneumococcal Conjugate PCV 20 03/11/2023 Tdap 03/11/2023,01/19/2011 Zoster, Recombinant 02/27/2022,12/22/2021 Zoster, live 08/26/2017 Family History Medical History Relation Name Comments Cancer Brother Alzheimer's disease Mother Relation Name Status Comments Brother Mother Social History Tobacco Use Types Packs/Day Years Used Date Smoking Tobacco: Never Passive Smoke Exposure: Never Smokeless Tobacco: Never Tobacco Cessation:Counseling Given: Not Answered Alcohol Use Standard Drinks/Week Comments Never 0 [...] not to disclose 2021 10:21 AM EDT Last Filed Vital Signs Vital Sign Reading Time Taken Comments Blood Pressure 147/83 10/27/2024 2:59 PM EST Pulse 83 10/27/2024 2:59 PM EST Temperature 36.9 ??C (98.5 ??F) 10/27/2024 2:59 PM ES T Respiratory Rate 16 10/27/2024 2:59 PM EST Oxygen Saturation 98% 10/27/2024 2:59 PM EST Inhaled Oxygen Concentration - - Weight 60 kg (132 lb 3.2 oz) 10/27/2024 2:59 PM EST Height 162.6 cm (5' 4 ) 10/27/2024 2:59 PM EST Body Mass Index 22.69 10/27/2024 2:59 PM EST Plan of Treatment Upcoming Encounters Date Type Department Care Team (Late st Contact Info) Description 12/25/2024 9:15 AM EDT Office Visit [facility] [address] [place] [phone] Cecy Pabon FNP [address] [place] [phone] Health Maintenance Due Date Last Done Comments CT Colonography 1955 Colonoscopy 1955 Colorectal Cancer Screening 1955 Dental Prophylaxis 1955 Dental X-Ray: Bitewings 1955 Dental X-Ray: Full Mouth 1955 FIT DNA/Cologuard 1955 FIT 1955 FOBT 1955 Sigmoidoscopy 1955 Alcohol/Substance Use Screening 1967 Hepatitis C Screening 11/24/1973 Dental Oral Exam 02/11/2023 08/12/2022 Depression Monitoring (PHQ-9) 02/02/2025 08/04/2024, 08/04/2024 Mammogram 02/21/2025 02/22/2024, 01/29, 09/17/2020, Additional history exists Influenza Vaccine (#1) 2025 , 06/19/2020, 06/09/2019, Additional history exists Postponed from 04/30/2024 (Patient Refused) Tobacco Screening 06/08/2025 06/08/2024 COVID-19 Vaccine ( season) 2025 03/11/2023, 10/07/2021, 01/08/2021, Additional history exists Postponed from 04/30/2024 (Patient Refused) Depression Screening 08/04/2025 08/04/2024, 08/04/20 24 SDOH Screening 08/04/2025 08/04/2024 HPV/Cotest 04/01/2026 04/01/2023, 07/07/2017 Pap Smear 04/01/2026 04/01/2023 Lipid Panel 10/22/2028 10/22/2023, 05/31, 06/19/2020 RSV Patients and Patients Aged 60 years or older (1 - 1-dose 75+ series) 11/24/2030 DTaP/Tdap/Td Vaccines (3 - Td or Tdap) 03/11/2033 03/11/2023, 01/19/2011 Zoster Vaccines Completed 02/27/2022, 11/29, 08/26/2017 Pneumococcal Vaccine: 50+ Years Completed 03/11/2023 HIB Vaccines Aged Out No longer eligi ble based on patient's age to complete this topic HPV Vaccines Aged Out No longer eligi ble based on patient's age to complete this topic Hepatitis A Vaccines Aged Out No long er eligible based on patient's age to complete this topic Hepatitis B Vaccines Aged Out No long er eligible based on patient's age to complete this topic IPV Vaccines Aged Out No longer eligi ble based on patient's age to complete this topic Meningococcal Vaccine Aged Out No uesebia alexis eligible based on patient's age to complete this topic RSV under 20 months Aged Out No longe r eligible based on patient's age to complete this topic Rotavirus Vaccines Aged Out No longer eligible based on patient's age to complete this topic Procedures Procedure Name Priority Date/Time Associated Diagnosis Comments BI MAMMOGRAM SCREENING TOMOSYNTHESIS BILATERAL Routine 02/22/2024 8:05 AM EDT LIPID PANEL, STANDARD Routine 10/22/2023 9:36 AM EST Mixed hyperlipidemia HPV MRNA E6/E7 REFLEX TO HPV 16, 18/45 Routine 04/01/2023 12:00 AM EDT PAP SMEAR Routine 04/01/2023 12:00 AM EDT COMPREHENSIVE ORAL EVALUATION - NEW OR ESTABLISHED PATIENT Routine 08/12/2022 10:00 AM EST from Last 3 Months or Most Recently Relevant to Health Maintenance Results * BI Mammogram Screening Tomosynthesis Bilateral (02/22/2024 8:05 AM EDT) Anatomical Region Laterality Modality Breast Bilateral Mammography 02/22/2024 8:05 AM EDT Narrative 03/22/2024 11:10 PM EDT ? [facility] ? [address] ?[place] [address] ? Mammography Report ? Signed ? Patient: Gina Pate ?MR#: [id number] ?? [id number] ? : 1955 ?Acct:[id number] ? Age/Sex: 68 / F ?ADM Date: /25/24 ? Loc: HO.MAMMO ? Attending Dr: Cecy Pabon DEVIL TENDER ? Ordering Physician: Pepper,Cecy DEVIL TENDER ?Results: 1Negat ?? nupur ? Date of Service: 02/22/24 ?Follow Up: 1 Year From Orig ?? inal Mammogram ? Procedure(s): MM tomosynthesis screening BI ?? Accession Number(s): [id number] ? cc: Cecy Pabon DEVIL TENDER ? EXAMINATION: ?? MM SCREENING DIGITAL BREAST TOMOSYNTHESIS, BILATERAL ? CLINICAL INFORMATION: ? Screening. Asymptomatic. ? COMPARISON: ?? Mammography: This study is compared with prior exams dating back to ?? 2019. ? TECHNIQUE: ?? Digital breast tomosynthesis is performed in both the craniocaudal and ?? mediolateral oblique views along with computer-aided detection (CAD). ?? Synthesized 2D images are generated from the tomosynthesis. ? FINDINGS: ?? There are scattered areas of fibroglandular density (ACR BI-RADS breast ?? composition Category b). ? There are no significant masses, abnormal calcifications, or other ?? abnormalities. ? MM/MM tomosynthesis screening BI ?? IMPRESSION: ?? No mammographic evidence of malignancy. ? ASSESSMENT: ? BI-RADS BI-RADS 1 - Negative ? RECOMMENDATION: ?? Routine annual mammography screening. ? 1 year F/U ? This examination should not preclude the clinical evaluation of a ?? suspicious palpable abnormality. ? This patient's information was entered into a reminder system with a ?? target due date for their next mammogram. ? Dictated By: ?Kate Jaffe MD ? Signed By: ?<Electronically signed by Kate Jaffe MD in OV> ? 03/22/246 ? DD/ 0805 ? TD/TT: ? Family Nurse Practitioner: ? Procedure Note Zechariah, Samanta - 03/22/2024 [place] [facility] [address] [place], [place] [address] Mammography Report Signed Patient: Sam Pate#: [id number] : 6Acct:[id number] Age/Sex: 68 / FADM Date: 02/22/24 Loc: JUN Attending Dr: Cecy SINGH Ordering Physician: Cecy PabonPResults: 1Negat nupur Date of Service: 02/22/24Follow Up: 1 Year From Orig inal Mammogram Procedure(s): MM tomosynthesis screening BI Accession Number(s): [id number] cc: Cecy Pabon EXAMINATION: MM SCREENING DIGITAL BREAST TOMOSYNTHESIS, BILATERAL CLINICAL INFORMATION: Screening. Asymptomatic. COMPARISON: Mammography: This study is compared with prior exams dating back to 2019. TECHNIQUE: Digital breast tomosynthesis is performed in both the craniocaudal and mediolateral oblique views along with computer-aided detection (CAD). Synthesized 2D images are generated from the tomosynthesis. FINDINGS: There are scattered areas of fibroglandular density (ACR BI-RADS breast composition Category b). There are no significant masses, abnormal calcifications, or other abnormalities. MM/MM tomosynthesis screening BI IMPRESSION: No mammographic evidence of malignancy. ASSESSMENT: BI-RADS BI-RADS 1 - Negative RECOMMENDATION: Routine annual mammography screening. 1 year F/U This examination should not preclude the clinical evaluation of a suspicious palpable abnormality. This patient's information was entered into a reminder system with a target due date for their next mammogram. Dictated By: Kate Jaffe MD Signed By: <Electronically signed by Kate Jaffe MD in OV> 03/22/24 2306 DD/ 0805 TD/TT: Family Nurse Practitioner: Cecy SINGH IMG BI PROCEDURES Edited Resul t - Final * Lipid Panel, Standard (10/22/2023 9:36 AM EST) Triglycerides 77 <150 mg/dL [facility] Comment:Desirable Triglyceri de: less than 150 mg/dLBorderline High Triglyceride 150-199 mg/dLHigh Triglyceride: 200-499 mg/dLVery High Triglyceride: greater than or equal to 5OO mg/dL Cholesterol 132 <200 mg/dL [facility] Comment:Desirable Cholestero l: less than 200 mg/dLBorderline High Cholesterol: 200-239 mg/dLHigh Cholesterol: greater than 239 mg/dL LDL Cholesterol Calculated 69 <100 mg/dL [facility] Comment:Desirable LDL: less than 100 mg/dLNear Optimal/Above Optimal LDL: 110- 129 mg/dLBorderline High LDL: 130-159 mg/dLHigh LDL: 160-189 mg/dLVery High LDL: greater than or equal to 190 mg/dL HDL Cholesterol 48 >40 mg/dL [facility] Comment:Desirable HDL: great er than 40 mg/dL Note: This HDL assay may give artificially low results in patients with liver disease. Blood Venous blood specimen / Unknown 10/22/2023 9:36 AM EST 10/22/2023 2:23 PM EST Cecy Pabon DEVIL TENDER LAB BLOOD ORDERABLES Final Res ult [facility] [address] [place] [phone] * HPV mRNA E6/E7 w/Reflex to HPV Genotypes 16, 18/45 (04/01/2023 12:00 AM EDT) HPV nRNA E6/E7 Not Detected Not Detected [facility] Comment:Methodology: Transcr iption-Mediated AmplificationThis assay detects E6/E7 viral messenger RNA (mRNA) from 14high-risk HPV types (16,18,31,33,35,39,45,51,52,56,58,59,66,68).Cervical sources are required for HPV testing.If a vaginal source from a patient who has had atotal hysterectomy with removal of cervix wassubmitted, please contact the testing laboratoryfor alternative testing options.For additional information, please refer [email or web address]/[email or web address](This link if provided for information/educational purposes only.)THIS TEST WAS PERFORMED AT:[employer] [place] [phone] HOLBROOK MD HPV mRNA E6/E7 TNP [facility] LABS HPV 16 RNA TNP [facility] HPV 18/45 RNA TNP [facility] 04/01/2023 04/02/2023 10: 15 AM EDT us Rylee Adam CNM LAB CYTOLOGY ORDERABLES F inal Result [facility] [address] [place] [address] [phone] * Pap Smear (04/01/2023 12:00 AM EDT) 04/01/2023 04/02/2023 10: 15 AM EDT Narrative [facility] - 04/24/2023 4:11 PM EDT ----- ------- Name: Gina Pate ? Age/Sex: 67/F ? : 1955 Unit#: [id number] ?? Attend Dr: RYLEE ADAM CNM ?Re04/01/23 ?Status: DEP REF ? Location: [facility] ? Disch: ? ----- ------- SPEC : [id number] ?RECD: 04/02/231015 ? STATUS: ??SOUT ? REQ NUM: [id number] ? KEE: 04/01/23-0000 ? SUBM DR: RYLEE ADAM CNM ? ENTERED: ??04/05/23 ?SP TYPE: Pap Smr ?OTHR : ? ORDERED: ??Pap Smear ? Interpretation ?? Satisfactory for evaluation. ?? Negative for intraepithelial lesion or malignancy. ?? Atrophic. ? HPV mRNA E6/E7: ?NOT DETECTED ? This assay detects E6/E7 viral messenger RNA (mRNA) from 14 high-risk HPV types (16, 18, ?? 31, 33, 35, 39, 45, 51, 52, 56, 58, 59, 66, 68) ? HPV testing performed by [facility], [place], [place]. ??See reference laboratory ?? portion of the EMR for entire report. ?Clinical Information LMP:Menopausal Previous PAP test:2017, ASCUS Other history:SAMI I ? Material Received ?? ThinPrep-Cervical ----- ------- Signed (signature on file) Ranjana Patel 04/24/23 1611 ? ----- ------- ? END OF REPORT ? us Rylee Adam [facility] LAB CYTOLOGY ORDERABLES F inal Result [facility] [address] [place] [phone] from Last 3 Months or Most Recently Relevant to Health Maintenance Insurance [address] [place] [address] [id number] - [facility] Care Teams Worm Packer Relationship Specialty Start Date End Date Cecy Pabon FNP [address] [place] [phone] PCP - General Family Medicine 09/10/22
--- OUTSIDE RECORDS SUMMARY | 2024-11-07 08:56 | XMS_ITS | Encounter Summary ---
Author Organization [email or web address] Address [address] [place] [address] Care Team Providers Care Seo Expert Name Role Phone Cecy Pabon Primary Care Provider [phone] Reason for Visit * Reason Comments Med Refill Encounter Details Date Type Department Care Team ([facility] st Contact Info) Description 09/17/2022 Refill [facility] [address] [place] [address] Cecy Pabon FNP [address] [place], [place] [phone] Lumbar facet arthropathy Social History Tobacco Use Types Packs/Day Years [...] suspected to have Coronavirus/COVID-19? No / Unsure 09/18/2022 10:44 AM EST documented as of this encounter Miscellaneous Notes * Telephone Encounter - Aga Hairston RN - 09/17/2022 1:33 PM EST Spoke with dtr, pt scheduled for [facility] Tele Renewal appt 11/17/22 @ 11:30am. ALL [facility] renewal forms being mailed with return envelope. * Telephone Encounter - Aga Hairston RN - 09/17/2022 1:20 PM EST Duplicate request, was sent/signed 09/10/22. documented in this encounter Plan of Treatment Upcoming Encounters Date Type Department Care Team ([facility] st Contact Info) Description 12/25/2024 9:15 AM EDT Office Visit [facility] [address] [place] [address] Cecy Pabon FNP [address] [place] [address] documented as of this encounter Visit Diagnoses Diagnosis Lumbar facet arthropathy Spondylosis of unspecified site without mention of myelopathy documented in this encounter Care Teams Seo Expert Relationship Specialty Start Date End Date Cecy Pabon FNP [address] [place] [phone] PCP - General Family Medicine 09/10/22 documented as of this encounter
--- OUTSIDE RECORDS SUMMARY | 2024-11-07 08:56 | XMS_ITS | Encounter Summary ---
Author Organization [employer] Address [address] [place] [address] Care Team Providers Care Dinkey Engineer Name Role Phone Cecy Pabon Primary Care Provider [phone] Reason for Visit * Reason Onset Date Comments Nurse Triage 12/14/2023 Encounter Details Date Type Department Care Team ([facility] Contact Info) Description 12/14/2023 Telephone [facility] [address] [place] [address] Cecy Pabon FNP [address] [place], [place] [phone] Nurse Triage Social History Tobacco Use Types Packs/Day Years Used Date Smoking Tobacco: Never Passive Smoke Exposure: Never Smokeless Tobacco: Never Alcohol Use Standard Drinks/Week Comments Never 0 (1 standard drink = 0.6 oz pur e alcohol) Depression Answer Date Recorded Patient Health Questionnaire-9 Score 0 02/04/2023 Housing Stability Answer Date Recorded What is your housing situation today? I have tamika torres 06/06/[address] you li ve. Do you have problems with any of the following? Pests such as bugs, ants, or mice 06/06/2023 Food Insecurity Answer Date Recorded Within the past 12 months, y ou worried that your food would run out before you got money to buy more: Never True 06/14/2023 Within the past 12 months,th e food you bought just didn't last and you didn't have enough money to get more: Never True Transportation Answer Date Recorded In the past 12 months, has l ack of transportation kept you from medical appts, meetings, work or from getting things needed for daily living? No 06/14/2023 Utilities Answer Date Recorded In the past 12 months, has t he electric, gas, oil or water company threatened to shut off services in your home? No 06/14/2023 Depression Answer Date Recorded Patient Health Questionnaire-2 Score 0 02/04/2023 Comments No Sex and Gender Information Value Date Recorded Sex Assigned at Female 06/29/2022 10:21 AM EDT Legal Sex Female 10:21 AM EDT Gender Identity Female 06/29/2022 10:21 AM EDT Sexual Orientation Choose not to disclose 2021 10:21 AM EDT documented as of this encounter Miscellaneous Notes * Telephone Encounter - Gloria Corley RN - 12/14/2023 3:00 PM EDT Notes scanned into chart as requested. * Telephone Encounter - Samira Izquierdo RN - 12/14/2023 2:48 PM EDT Please assist with obtaining and scanning [facility] notes for provider to reivew prior to telehealth visit tomorrow. Future Appointments Date Time Provider Department Center 12/15/2023 9:30 AM Dinesh Gamino MD [facility] 01/21/2024 9:00 AM Margaret De La Rosa [facility] * Telephone Encounter - Samira Izquierdo RN - 12/14/2023 2:40 PM EDT Call to [facility], spoke with nico Wheeler who is on HIPAA. Reports pt went into ER due toright sided rib pain. Pt found to have a nodule on rib. Per [facility] notes pt discharged home stable.Pt CXR chest x-ray (7 mm nodule projecting over the right eighth rib ) Pt to follow up with PCP.No appts on teams in [place] for this week. Pt daughter agrees to Telehealth with team provider. Reviewed home care advise, ER precautions and reasons to call back. Protocol Used: Recent Medical Visit for Illness Follow-up Call (Adult) Protocol-Based Disposition: See in Office or Video Visit Today or Tomorrow Future Appointments Date Time Provider Department Center 12/15/2023 9:30 AM Dinesh Gamino MD [facility] 01/21/2024 9:00 AM Margaret De La Rosa, OD [facility] Video visit offered and caller accepted Positive Triage Question: * Patient wants to be seen * All higher-acuity triage questions were negative Care Advice Discussed: * Continue Treatment * Reasons To Call Back - You become worse * Telephone Encounter - Jadiel Torre - 12/14/2023 1:53 PM EDT Patient calling to report ED visit on : Date: 12/13/23 Hospital: [facility] Seen for: Chest Pain Pt stated still feeling symptoms Symptoms: Chest Pain - Adult, Abdominal Pain - Female - Not Outcome: Transfer to a nurse or provider NOW! Reason: Trouble breathing documented in this encounter Plan of Treatment Upcoming Encounters Date Type Department Care Team (Late st Contact Info) Description 12/25/2024 9:15 AM EDT Office Visit [facility] [address] [place] [address] Cecy Pabon FNP [address] [place] [address] documented as of this encounter Visit Diagnoses Not on filedocumented in this encounter Additional Health Concerns Assessment Noted Time PHQ-9 Depression Total Score: 0 02/05/20 23 11:22 AM EDT documented as of this encounter Care Teams Dinkey Engineer Relationship Specialty Start Date End Date Cecy Pabon FNP [address] [place] [address] PCP - General Family Medicine 09/10/22 documented as of this encounter
--- OUTSIDE RECORDS SUMMARY | 2024-11-07 08:56 | XMS_ITS | Encounter Summary ---
Author Organization [employer] Address [address] [place] [address] Care Team Providers Care Legal Editor Name Role Phone Cecy Pabon MARKETING PROPOSAL COORDINATOR Primary Care Provider [phone] Encounter Details Date Type Department Care Team ([facility] Contact Info) Description 06/09/2024 Orders Only [facility] [address] [place], [place] [phone] ProviderJovan MD Social History Tobacco Use Types Packs/Day Years Used Date Smoking Tobacco: Never Passive Smoke Exposure: Never Smokeless Tobacco: Never Alcohol Use Standard Drinks/Week Comments Never 0 (1 standard drink = 0.6 oz pur e alcohol) Depression Answer Date Recorded Patient Health Questionnaire-9 Score 7 03/06/2024 Patient Health Questionnaire-9 Score 7 03/06/2024 Last PHQ-9: Questionnaire Data Not on file 0 03/06/2024 Housing Stability Answer Date Recorded What is [...] Answer Date Recorded Patient Health Questionnaire-2 Score 1 03/06/2024 Internet Access Answer Date Recorded Internet Access Q1 Yes 05/01/2024 Internet Access Q2 Not on file 05/01/2024 Comments No Sex and Gender Information Value [...] Description 12/25/2024 9:15 AM EDT Office Visit [facility] [address] [place], [place] [phone] Cecy Pabon FNP [address] [place] [address] documented as of this encounter Procedures Procedure Name Priority Date/Time Associated Diagnosis Comments SURGICAL PATHOLOGY Routine 05/09/2024 9:05 AM EDT documented in this encounter Results * Surgical Pathology (05/09/2024 9:05 AM EDT) Historical Provider LAB PATHOLOGY ORDERABLES Final Result documented in this encounter Visit Diagnoses Not on filedocumented in this encounter Additional Health Concerns Assessment Noted Time PHQ-9 Depression Total Score: 7 03/06/20 24 11:04 AM EDT documented as of this encounter Care Teams Legal Editor Relationship Specialty Start Date End Date Cecy Pabon FNP [address] [place] [address] PCP - General Family Medicine 09/10/22 documented as of this encounter
--- OUTSIDE RECORDS SUMMARY | 2024-11-07 08:56 | XMS_ITS | Encounter Summary ---
Author Organization [employer] Address [address] [place] [address] Care Team Providers Care Appliance Worker Name Role Phone Cecy Pabon Primary Care Provider [phone] Reason for Visit * Reason Onset Date Comments Nurse Triage 10/24/2024 Encounter Details Date Type Department Care Team ([facility] Contact Info) Description 10/24/2024 Telephone [facility] MEDICINE [address] [place] [address] Cecy Pabon FNP [address] [place], [place] [phone] Nurse Triage Social History Tobacco Use Types [...] encounter Miscellaneous Notes * Telephone Encounter - Samira Izquierdo RN - 10/24/2024 11:47 AM EST Images from the original note were not included. No allergy and immunology chief needed as this report writer speaks Romanian. Call returned to Gina Matute to triage below. Reports having 2 weeks of numbness of tips of fingers on right hand. Pt already having chronic shoulder and neck pain on that right side. Per pt using topical treatments with very minimal relief. Pt also using oral Tylenol/motrin with minimal relief. Pt advised of disposition, agrees to sick on site with PCP this week. Reviewed home care advise, ER precautions and reasons to call back. Protocol Used: Finger Pain (Adult) Protocol-Based Disposition: See in Office or Video Visit within 3 Days Future Appointments Date Time Provider Department Center 10/27/2024 3:15 PM FRANCISCO Jain [facility] Video visit offer not recorded Positive Triage Question: * Neck pain and pain shoots into fingers * All higher-acuity triage questions were negative Care Advice Discussed: * Reasons To Call Back - Fever occurs - Redness or swelling appears - You become worse * Telephone Encounter - Dani Vega - 10/24/2024 10:42 AM EST Symptom: Fingernail Symptoms Outcome: Schedule an appointment to be seen within 3 days Reason: Caller denied all higher acuity questions The caller accepted this outcome. Contact pt at [phone] documented in this encounter Plan of Treatment Upcoming Encounters Date Type Department Care Team ([facility] st Contact Info) Description 12/25/2024 9:15 AM EDT Office Visit [facility] MED & PEDS [address] [place] [address] Cecy Pabon FNP [address] [place] [address] documented as of this encounter Visit Diagnoses Not on filedocumented in this encounter Additional Health Concerns Assessment Noted Time PHQ-9 Depression Total Score: 15 024 9:58 AM EST documented as of this encounter Care Teams Appliance Worker Relationship Specialty Start Date End Date Cecy Pabon FNP [address] [place] [address] PCP - General Family Medicine 09/10/22 documented as of this encounter
--- OUTSIDE RECORDS SUMMARY | 2024-11-07 08:56 | XMS_ITS | Encounter Summary ---
Author Organization [facility] Address [address] [place] [address] Care Team Providers Care Optical Mechanic Apprentice Name Role Phone Cecy Pabon Primary Care Provider [phone] Reason for Referral * Neurology (Routine) - Authorized Specialty Diagnoses / Procedures Referred By Phu marroquin Referred To Contact Diagnoses Numbness and tingling in right hand Procedures EMG Cecy Pabon FNP [address] [place] [address] Phone: tel: fax: [address] Phone: tel: fax: Referral ID Status Reason Start Date Expiration Date V isits Requested Visits Authorized [id number] Authorized 10/27/2024 10/27/2025 1 1 * Consultation (Routine) - Closed Specialty Diagnoses / Procedures Referred By Phu t Referred To Contact Orthopaedic Surgery Diagnoses Incomplete tear of right rotator cuff, unspecified whether traumatic Cecy Pabon FNP [address] [place] [address] Phone: tel: fax: Roya Lentz [place], [place] Phone: tel: fax: Referral ID Status Reason Start Date Expiration Date V isits Requested Visits Authorized [id number] Closed Specialty Services Required 10/27/2024 10/27/2025 1 1 Encounter Details Date Type Department Care Team (Late st Contact Info) Description 10/27/2024 3:15 PM EST Office Visit [facility] [address] [place] [address] Cecy Pabon FNP [address] [place] [address] Incomplete tear of right rotator cuff, unspecified whether traumatic (Primary Dx); Numbness and tingling in right hand; Healthcare maintenance; Supraspinatus tendinitis, unspecified laterality; Contact dermatitis, unspecified contact dermatitis type, unspecified trigger; Muscle pain; Cervical arthritis; Benign hypertension Social History Tobacco Use Types Packs/Day Years [...] AM EDT documented as of this encounter Last Filed Vital Signs Vital Sign Reading [...] Mass Index 22.69 10/27/2024 2:59 PM EST documented in this encounter Progress Notes * Cecy Pabon, FRANCISCO - 10/27/2024 3:15 PM EST Subjective: Gina Matute is a 68 y.o. female w/ PMH hypertension, migraines, spondylolisthesis of lumbar region, rotator cuff surgery, and cervical arthritis who presents to the office for a sick visit. HPI Right shoulder Pain: Surgical history of right shoulder loose anchor s/p rotator cuff repair. completed right shoulder arthroscopy with extensive debridement, arthroscopic hardware removal at [facility] approx 2022 Postsurgery, she completed rehab, physical therapy, tapered off opioid and had been coping fairly well with Flexeril nightly as needed and topical analgesics. Reports that starting 2 to 3 months ago pain and mobility of right shoulder began to worsen. Difficulties with shoulder flexion above 90 degrees. Also difficulties with abduction and external rotation. Will refer for follow-up visit with surgeon. Right fingers numbness/tingling for > 4 weeks, primarily thumb. Constant. No decrease in motor strength or ROM. Rash inside of left wrist. Describes at itchy, red bumps that she has been scratching over the pastfew days. No push or discharge. Does not believe she was bit. Review of Systems Constitutional: Negative for chills and fever. Respiratory: Negative for cough, shortness of breath and wheezing. Cardiovascular: Negative for chest pain and palpitations. Gastrointestinal: Negative for vomiting. Musculoskeletal: Positive for arthralgias. Skin: Positive for rash. Neurological: Positive for numbness. Psychiatric/Behavioral: Negative for suicidal ideas. Visit Vitals BP (!) 147/83 (BP Location: Left arm, Patient Position: Sitting, BP Cuff Size: Large adult) Pulse 83 Temp 98.5 ??F (36.9 ??C) (Oral) Resp 16 Ht 5' 4 (1.626 m) Wt 132 lb 3.2 oz (60 kg) SpO2 98% BMI 22.69 kg/m?? OB Status Postmenopausal Smoking Status Never BSA 1.65 m?? Physical Exam Constitutional: Appearance: Normal appearance. HENT: Head: Atraumatic. Right Ear: External ear normal. Left Ear: External ear normal. Pulmonary: Effort: Pulmonary effort is normal. Breath sounds: Normal breath sounds. Musculoskeletal: Right shoulder: Tenderness present. No swelling. Decreased range of motion. Left shoulder: No swelling. Normal range of motion. Comments: Right shoulder: Flexion limited to 90 degrees. Age-appropriate shoulder extension and cross body adduction. Limited abduction/external rotation due to pain. Right wrist: Full range of motion. 5/5 strength. Full range of motion with fingers and reliability specialist strength. Skin: Comments: 5-10 erythematous papules 2-3 mm in diameter over anterior surface of left wrist. Neurological: Mental Status: She is alert and oriented to person, place, and time. Psychiatric: Mood and Affect: Mood normal. Behavior: Behavior normal. Problem List Items Addressed This Visit Circulatory Benign hypertension Current Assessment & Plan Previously prescribed enalapril. Currently controlled with lifestyle interventions (no pharmacotherapy) BP elevated in office, suspect secondary to pain. Encouraged to check home readings and call officefor 2+ readings >140/90 mmHg at home for consideration of addition of medication Musculoskeletal Cervical arthritis Overview On her C-spine MRI [facility] July 05, 2019 she had spondylosis at C4-5, C5-6, C6-7 with neuroforaminalnarrowing most significant on the left at C4-5, left C5-6. Partial thickness tear of right rotator cuff - Primary Overview Right shoulder MRI October 2020 performed at [facility] demonstrated a high-grade partial thickness bursal sided tear of the rotator cuff. Prominent anterior acromial spur. Subscapularis intact. Mild atrophy and fatty infiltration of supraspinatus on T1 sagittals. Moderate a.c. arthrosis. Possible SLAPtear. Biceps tendon was normally within the bicipital groove distally. 04/21/23: Right shoulder loose anchor s/p rotator cuff repair. Surgery for right shoulder arthroscopy with extensive debridement, arthroscopic hardware removal by Dr. Lentz at [facility] Current Assessment & Plan Continued pain in right shoulder s/p repeat surgery Completed rehab/PT Completed percocet taper, continues on topical analgesics and flexeril nightly PRN for pain control Referral to reestablish with [facility]-Dr. Lentz placed on 10/27/2024 Relevant Orders Referral to Orthopaedic Surgery Supraspinatus tendinitis Other Healthcare maintenance Overview Mammo: BIRADS 1 on 02/22/24 Cervical CA: 04/01/23 NILM HPV neg [facility]. Previous 07/07/2017 - Pap ASCUS, HPV neg. Due for co-testing Mar 2026. Colon CA: 03/04/2021: Colonoscopy by Dr. Fox (records requested 08/04/24) Optometry: [facility] 12/17/21 Dental: established with dental home [facility] Dental BMD: osteopenia Mar 2023 Last PE: 08/04/24 Relevant Orders Albumin, Random Urine W/Creatinine Lipid Panel, Standard Hemoglobin A1c TSH with Reflex to Free T4 Comprehensive Metabolic Panel CBC auto differential Chlamydia/N. Gonorrhoeae RNA, TMA, Urogenitial Hepatitis C Viral RNA, Quantitative, Real-Time PCR RPR (Monitor) with Reflex to Titer HIV-1/2 Antigen and Antibodies, Fourth Generation, with Reflexes Other Visit Diagnoses Numbness and tingling in right hand - Consider 2/2 hx cervical arthritis or shoulder pathology. Carpal tunnel syndrome also in differential. EMG ordered for further eval of right hand. Relevant Orders EMG Contact dermatitis, unspecified contact dermatitis type, unspecified trigger - Clinical presentation consistent with contact Derm, unspecified cause. Consider new jewelry/watch -Plan: Topical triamcinolone twice daily for up to 1 week. Follow-up if symptoms worsen or persist. Relevant Medications triamcinolone (Kenalog) 0.1 % cream Muscle pain Relevant Medications cyclobenzaprine (Flexeril) 10 MG tablet Follow up: 8 weeks for shoulder pain and lab review, sooner PRN. documented in this encounter Miscellaneous Notes * Assessment & Plan Note - FRANCISCO Jain - 10/28/2024 3:00 PM ESTAssociated Problem(s): Benign hypertension Previously prescribed enalapril. Currently controlled with lifestyle interventions (no pharmacotherapy) BP elevated in office, suspect secondary to pain. Encouraged to check home readings and call officefor 2+ readings >140/90 mmHg at home for consideration of addition of medication * Assessment & Plan Note - FRANCISCO Jain - 10/28/2024 2:57 PM EST Associated Problem(s): Partial thickness tear of right rotator cuff Continued pain in right shoulder s/p repeat surgery Completed rehab/PT Completed percocet taper, continues on topical analgesics and flexeril nightly PRN for pain control Referral to reestablish with [facility]. Lentz placed on 10/27/2024 documented in this encounter Plan of Treatment Upcoming Encounters Date Type Department Care Team (Late st Contact Info) Description 12/25/2024 9:15 AM EDT Office Visit [facility] [address] [place] [address] Cecy Pabon FNP [address] [place] [address] Scheduled Orders Name Type Priority Associated Diagnoses Orde r Schedule EMG Neurology Routine Numbness and tingling in right hand Expected: 10/27/2024, Expires: 04/26/2025 Albumin, Random Urine W/Creatinine Lab Routine Healthcare maintenance Expected: 10/27/2024 (Approximate), Expires: 10/27/2025 Lipid Panel, Standard Lab Routine Healthcare maintenance Expected: 10/27/2024 (Approximate), Expires: 10/27/2025 Hemoglobin A1c Lab Routine Healthcare maintenance Expected: 10/27/2024 (Approximate), Expires: 10/27/2025 TSH with Reflex to Free T4 Lab Routine Healthcare maintenance Expected: 10/27/2024 (Approximate), Expires: 10/27/2025 Comprehensive Metabolic Panel Lab Routine Healthcare maintenance Expected: 10/27/2024 (Approximate), Expires: 10/27/2025 CBC auto differential Lab Routine Healthcare maintenance Expected: 10/27/2024, Expires: 10/27/2025 Chlamydia/N. Gonorrhoeae RNA, TMA, Urogenitial Microbiology Routine Healthcare maintenance Expected: 10/27/2024, Expires: 10/27/2025 Hepatitis C Viral RNA, Quantitative, Real-Time PCR Lab Routine Healthcare maintenance Expected: 10/27/2024 (Approximate), Expires: 10/27/2025 RPR (Monitor) with Reflex to??Titer Lab Routine Healthcare maintenance Expected: 10/27/2024 (Approximate), Expires: 10/27/2025 HIV-1/2 Antigen and Antibodies, Fourth Generation, with Reflexes Lab Routine Healthcare maintenance Expected: 10/27/2024 (Approximate), Expires: 10/27/2025 Scheduled Referrals Name Type Priority Associated Diagnoses Orde r Schedule Referral to Orthopaedic Surgery Outpatient Referral Routine Incomplete tear of right rotator cuff, unspecified whether traumatic Expected: 10/27/2024 (Approximate), Expires: 10/27/2025 documented as of this encounter Visit Diagnoses Diagnosis Incomplete tear of right rotator cuff, unspecified whether traumatic- Primary Numbness and tingling in right hand Disturbance of skin sensation Healthcare maintenance Supraspinatus tendinitis, unspecified laterality Contact dermatitis, unspecified contact dermatitis type, unspecified trigger Muscle pain Unspecified myalgia and myositis Cervical arthritis Cervical spondylosis without myelopathy Benign hypertension Essential hypertension, benign documented in this encounter Additional Health Concerns Assessment Noted Time PHQ-9 Depression Total Score: 15 024 9:58 AM EST documented as of this encounter Care Teams Optical Mechanic Apprentice Relationship Specialty Start Date End Date Cecy Pabon FNP [address] [place] [id number] PCP - General Family Medicine 09/10/22 documented as of this encounter
== END 2024-11-07 08:22 | disposition home or self-care (01) ==
LOC: HO.NEURO 08:21
PROVIDERS: PCP Registered Nurse; Visit Provider Registered Nurse
DX: R20.0 Anesthesia of skin (principal); R20.2 Paresthesia of skin
CPT/HCPCS: 95886; 95910

== ENCOUNTER 2024-12-14 08:34 | Outpatient (REF) | payer OTHER, SELFPAY ==
--- OUTSIDE RECORDS SUMMARY | 2024-12-14 09:04 | XMS_ITS | Clinical Summary ---
Author Organization [employer] Address [address] [facility] 7[address] [place] [address] Care Team Providers Care Simulation Developer Name Role Phone Cecy Pabon MANAGER ORANGE Primary Care Provider [phone] Allergies Active Allergy Reactions Criticality Noted Date Comments Doxycycline Rash Low 02/19/2022 Gabapentin 02/21/2024 Penicillins Dizziness 09/18/2022 Medications albuterol 108 (90 Base) MCG/ACT inhaler Inhale 2 puffs every 4 (four) hours. 05/22/20 22 Active aspirin 325 MG EC tablet ROBBY 1 TABLETA POR LA BOCA CADA GOMEZ POR 14 CONDON COMENZANDO EL GOMEZ DESPUES DE LA OPERACION NAI INDICADO 09/22/19 23 Active cholecalciferol (Vitamin D-3) 25 MCG (1000 UT) tabletIndications: Vitamin D insufficiency Take 1 tablet (25 mcg) by mouth in the morning. 90 tablet 3 03/11/20 23 Active docusate sodium (Colace) 100 MG capsuleIndications :Chronic constipation ROBBY 1 CAPSULA POR BOCA HASTA 2 VECES AL GOMEZ SI ES NECESARIO PARA EL ESTRENIMIENTO MIENTRAS JOCELIN TOMANDO MEDICAMENTO NARCOTICO GLADIS INDICADO. 90 capsule 1 03/11/20 23 Active SUMAtriptan (Imitrex) 50 MG tabletIndications: Other migraine without status migrainosus, not intractable Take 50 mg by mouth if needed for migraine. 07/28/20 23 Active Cetirizine HCl 10 MG capsuleIndications :Seasonal allergies Take 1 tablet by mouth if needed each day (allergies or nasal congestion). 90 capsule 1 10/22/19 24 Active senna-docusate (Senokot S) 8.6-50 MG tablet Take 1 tablet by mouth Once per day. 30 tablet 3 06/08/20 24 025 Active rosuvastatin (Crestor) 10 MG tabletIndications: Mixed hyperlipidemia TAKE 1 TABLET BY MOUTH AT BEDTIME. FOR CHOLESTEROL 90 tablet 3 08/02/20 24 Active benzonatate (Tessalon Perles) 100 MG capsuleIndications :Chronic cough Take 1 capsule (100 mg) by mouth if needed in the morning, at noon, and at bedtime for cough. Do not crush or chew. 30 capsule 3 08/04/20 24 025 Active lidocaine-prilocai ne (Emla) 2.5-2.5 % creamIndications:I ncomplete tear of right rotator cuff, unspecified whether traumatic Apply thin layer by topical route 2-3 times daily as needed to shoulder for pain 30 g 2 08/04/20 24 Active Diclofenac Sodium 1 % gelIndications:Inc omplete tear of right rotator cuff, unspecified whether traumatic Apply thin layer by topical route (quantity as directed on package insert) to affected area of pain 3 times daily as needed. 50 g 3 08/04/20 24 Active Capsaicin 0.025 % lotionIndications: Incomplete tear of right rotator cuff, unspecified whether traumatic Apply thin layer by topical route 2-3 times daily as needed to shoulder for pain 1 Bottle 3 08/04/20 24 Active triamcinolone (Kenalog) 0.1 % creamIndications:C ontact dermatitis, unspecified contact dermatitis type, unspecified trigger Apply topically if needed in the morning and at bedtime for irritation (itching or skin irritation.). Use for up to 7 days 30 g 10/27/19 25 Active cyclobenzaprine (Flexeril) 10 MG tabletIndications: Muscle pain TAKE 1 TABLET BY MOUTH NIGHTLY NEEDED FOR PAIN 30 tablet 3 10/27/19 25 Active acetaminophen (Tylenol) 500 MG tablet Take 2 tablets (1,000 mg) by mouth every 6 (six) hours if needed for moderate pain or fever for up to 25 doses. 50 tablet 11/18/19 25 Active ciprofloxacin-hydr ocortisone (Cipro HC Otic) otic suspension Administer 3 drops into each ear 2 times daily for 7 days. 10 mL 03/21 025 Active Problems Problem Noted Date Diagnosed Date Lateral epicondylitis of left elbow 09/19/2024 PMB (postmenopausal bleeding) 08/04/2024 Overview (08/04/2024): Evaluated by [facility] JEWELRY DRILL OPERATOR in Apr - May 2024 EMB Apr [...] date approx 40 years ago November 2023: [facility] CXR with question of 7mm nodule right lung 12/25/23: CT Chest w/o contrast at [facility], nonspecific findings of irregular areas of nodular density within the right lung apex and anteriorly within the right middle lobe and peripherally long left major fissure 01/04/24: Referral to [facility] Pulmonology for further evaluation and management Following with [facility] Pulm - next appt scheduled October 2024 Assessment & Plan (01/04/2024 8:19 AM EDT): Pertinent hx: tuberculosis infx s/p tx approx 40 years ago, hx of smoking cigarettes w/ quit date approx 40 years ago November 2023: [facility] CXR with question of 7mm nodule right lung 12/25/23: CT Chest w/o contrast at [facility], nonspecific findings of irregular areas of nodular density within the right lung apex and anteriorly within the right middle lobe and peripherally long left major fissure 01/04/24: Referral to [facility] Pulmonology for further evaluation and [...] 02/22/24 Cervical CA: 04/01/23 NILM HPV neg [facility] CNM. Previous 07/07/2017 - Pap ASCUS, HPV neg. Due for co-testing Mar 2026. Colon CA: 03/04/2021: Colonoscopy by Dr. Fox (records requested 08/04/24) Optometry: [facility] 12/17/21 Dental: established with dental home [facility] Dental BMD: osteopenia Mar 2023 Last [...] Per consult note: CT brain WO at [facility] in Jun 2020: [place] brain WO at [facility] in November 2020: [place] Assessment & Plan (03/11/2023 6:31 AM EDT): ?? Followed by Dr. Liz - [facility] ?? Continues with sumatriptan PRN migraines Per consult note: ?? CT brain WO at [facility] in Jun 2020: [place] ?? MRI brain WO at [facility] in November 2020: [place] Dysplastic nevus of trunk 02/03/2023 Cervical arthritis 01/25/2019 Overview (10/28/2024): On her C-spine MRI [facility] July 05, 2019 she [...] facet arthropathy at L4-L5 bilaterally with stable [id number] spinal canal stenosis Development of small shallow [...] Right shoulder MRI October 2020 performed at [facility] demonstrated a high-grade partial thickness bursal [...] arthroscopic hardware removal by Dr. Lentz at [facility] Assessment & Plan (10/28/2024 2:57 PM EST): Continued pain in right shoulder s/p repeat surgery Completed rehab/PT Completed percocet taper, continues on topical analgesics and flexeril nightly PRN for pain control Referral to reestablish with [facility]-Dr. Lentz placed on 10/27/2024 Assessment & Plan [...] Encounters Date Type Department Care Team Description 12/12/2024 Patient Outreach [facility] MED[facility] [address] [place] [phone] Cecy Pabon FNP Pre-visit Planning (Pre visit planning LVM ) 12/12/[address] [facility]ED[facility] [address] [place] [address] Cecy Pabon FNP Chart Prep 11/23/[address] [facility] [facility] [address] [place] [address] Cecy Pabon FNP TC: EMG review 11/17/2024 8:40 AM EDT Office Visit [facility] [address], [place] [phone] Jose Vizcaino MD Acute otitis externa of right ear, unspecified type (Primary Dx); Benign hypertension 10/27/2024 3:15 PM EST Office Visit [facility] [address] [place] [address] Cecy Pabon FNP Incomplete tear of right rotator cuff, unspecified whether traumatic (Primary Dx); Numbness and tingling in right hand; Healthcare maintenance; Supraspinatus tendinitis, unspecified laterality; Contact dermatitis, unspecified contact dermatitis type, unspecified trigger; Muscle pain; Cervical arthritis; Benign hypertension 10/27/2024 Travel 10/24/2024 Telephone [facility] [address] [place] [address] Cecy Pabon FNP Nurse Triage 09/19/2024 9:20 AM EST Office Visit [facility] [address] [place] [address] Jose Vizcaino MD Lateral epicondylitis of left [...] Sign Reading Time Taken Comments Blood Pressure 155/90 11/17/2024 8:42 AM EDT Pulse 110 11/17/2024 8:42 AM EDT Temperature 36.9 ??C (98.4 ??F) 11/17/2024 8:42 AM ED T Respiratory Rate 17 11/17/2024 8:42 AM EDT Oxygen Saturation 95% 11/17/2024 8:42 AM EDT Inhaled Oxygen Concentration - - Weight 60.9 kg (134 lb 3.2 oz) 11/17/2024 8:42 A M EDT Height 162.6 cm (5' 4 ) 10/27/2024 2:59 PM EST Body Mass Index 23.04 10/27/2024 2:59 PM EST Plan of Treatment Upcoming Encounters Date Type Department Care Team (Late st Contact Info) Description 12/25/2024 9:15 AM EDT Office Visit [facility] [address] [place], [place] [phone] Cecy Pabon FNP [address] [place] [address] Health Maintenance Due Date Last Done Comments CT Colonography 1955 Colonoscopy 1955 Colorectal Cancer Screening 1955 Dental Prophylaxis 1955 Dental X-Ray: Bitewings 1955 Dental X-Ray: Full Mouth 1955 FIT DNA/Cologuard 1955 FIT 1955 FOBT 1955 Sigmoidoscopy 1955 Alcohol/Substance Use Screening 1967 Hepatitis C Screening 11/24/1973 Dental Oral Exam 02/11/2023 08/12/2022 Depression Monitoring 02/02/2025 08/04/2024, 024 Mammogram 02/21/2025 02/22/2024, 01/29, 09/17/2020, Additional history exists Influenza Vaccine (#1) 2025 , 06/19/2020, 06/09/2019, Additional history exists Postponed from 04/30/2024 (Patient Refused) COVID-19 Vaccine ( season) 2025 03/11/2023, 10/07/2021, 01/08/2021, Additional history exists Postponed from 04/30/2024 (Patient Refused) Depression Screening 08/04/2025 08/04/2024, 08/04/20 24 SDOH Screening 08/04/2025 08/04/2024 Tobacco Screening 11/17/2025 11/17/2024 HPV/Cotest 04/01/2026 04/01/2023, 07/07/2017 Pap Smear 04/01/2026 [...] this topic Meningococcal Vaccine Aged Out No eusebia alexis eligible based on patient's age to complete this topic RSV under 20 months Aged Out No longe r eligible based on patient's age to complete this topic Rotavirus Vaccines Aged Out No longer eligible based on patient's age to complete this topic Procedures Procedure Name Priority Date/Time Associated Diagnosis Comments POCT INFLUENZA B (ID NOW RAPID MOLECULAR) Routine 11/17/2024 9:22 AM EDT Acute otitis externa of right ear, unspecified type POCT INFLUENZA A (ID NOW RAPID MOLECULAR) Routine 11/17/2024 9:22 AM EDT Acute otitis externa of right ear, unspecified type POCT RAPID COVID ANTIGEN Routine 11/17/2024 9:22 AM EDT Acute otitis externa of right ear, unspecified type BI MAMMOGRAM SCREENING TOMOSYNTHESIS BILATERAL Routine 02/22/2024 [...] Recently Relevant to Health Maintenance Results * Influenza B (ID NOW Rapid Molecular) (11/17/2024 9:22 AM EDT) Influenza B Negative Negative, Indeterminate [facility] Swab 11/17/2024 9:22 AM EDT us Jose Vizcaino MD POINT OF CARE TEST ENTER/EDIT OR DERABLES Final Result Performing Organization Address [facility] de Phone Number [facility] [address] [place] [phone] * Influenza A (ID NOW Rapid Molecular) (11/17/2024 9:22 AM EDT) Pathologist [facility] Influenza A Negative Negative, Indeterminate [facility] Swab 11/17/2024 9:22 AM EDT us Jose Vizcaino MD POINT OF CARE TEST ENTER/EDIT OR DERABLES Final Result Performing Organization Address [facility] de Phone Number [facility] [address] [place] [phone] * POCT Rapid COVID Ag (11/17/2024 9:22 AM EDT) Rapid COVID Ag Negative [facility] Swab 11/17/2024 9:22 AM EDT us Jose Vizcaino MD POINT OF CARE TEST ENTER/EDIT OR DERABLES Final Result Performing Organization Address [facility] de Phone Number [facility] [address] [place] [phone] * BI Mammogram Screening Tomosynthesis Bilateral (02/22/2024 8:05 AM EDT) Anatomical Region Laterality Modality Breast Bilateral Mammography 02/22/2024 8:05 AM EDT Narrative 03/22/2024 11:10 PM EDT ? [facility] ? [address] ?[place] [address] ? Mammography Report ? Signed ? Patient: Roper Giovani,Gina ?MR#: [id number] ?? [id number] ? : 1955 ?Acct:[id number] ? Age/Sex: 68 / F ?ADM Date: 02/22/24 ? Loc: HO.MAMMO ? Attending Dr: Cecy Pabon MANAGER ORANGE ? Ordering Physician: Cecy Pabon MANAGER ORANGE ?Results: 1Negat ?? nupur ? Date of Service: 02/22/24 ?Follow Up: 1 Year From Orig ?? inal Mammogram ? Procedure(s): MM tomosynthesis screening BI ?? Accession Number(s): [id number] ? cc: Cecy Pabon MANAGER ORANGE ? EXAMINATION: ?? MM SCREENING DIGITAL BREAST [...] 03/22/246 ? DD/ 0805 ? TD/TT: ? Railcar Switcher: ? Procedure Note Donotnathanaelinterpreter, Image - [facility]/22/[facility] [address] [place] [address] Mammography Report Signed Patient: Sam Pate#: [id number] : 6Acct:[id number] Age/Sex: 68 / FADM Date: 02/22/24 Loc: HO.MAMMO Attending Dr: Cecy Pabon MANAGER ORANGE Ordering Physician: Cecy PabonPResults: 1Negat nupur Date of Service: 02/22/24Follow Up: 1 Year From Orig inal Mammogram Procedure(s): MM tomosynthesis screening BI Accession Number(s): [id number] cc: Cecy Pabon MANAGER ORANGE EXAMINATION: MM SCREENING DIGITAL BREAST TOMOSYNTHESIS, BILATERAL [...] in OV> 03/22/24 2306 DD/ 0805 TD/TT: Railcar Switcher: Cecy SINGH IMG BI PROCEDURES Edited Resul t - Final * Lipid Panel, Standard (10/22/2023 9:36 AM EST) Triglycerides 77 <150 mg/dL [facility] Comment:Desirable Triglyceri de: less than 150 mg/dLBorderline High Triglyceride 150-199 mg/dLHigh Triglyceride: 200-499 mg/dLVery High Triglyceride: greater than or equal to 5OO mg/dL Cholesterol 132 <200 mg/dL [facility] Comment:Desirable Cholestero l: less than 200 mg/dLBorderline High Cholesterol: 200-239 mg/dLHigh Cholesterol: greater than 239 mg/dL LDL Cholesterol Calculated 69 <100 mg/dL [facility] Comment:Desirable LDL: less than 100 mg/dLNear Optimal/Above Optimal LDL: 110- 129 mg/dLBorderline High LDL: 130-159 mg/dLHigh LDL: 160-189 mg/dLVery High LDL: greater than or equal to 190 mg/dL HDL Cholesterol 48 >40 mg/dL [facility] Comment:Desirable HDL: great er than 40 mg/dL Note: This HDL assay may give artificially low results in patients with liver disease. Blood Venous blood specimen / Unknown 10/22/2023 9:36 AM EST 10/22/2023 2:23 PM EST Cecy SINGH LAB BLOOD ORDERABLES Final Res ult [facility] [address] [place] [address] [phone] * HPV mRNA E6/E7 w/Reflex to HPV Genotypes 16, 18/45 (04/01/2023 12:00 AM EDT) HPV nRNA E6/E7 Not Detected Not Detected [facility] Comment:Methodology: Transcr iption-Mediated AmplificationThis assay detects E6/E7 viral messenger RNA (mRNA) from 14high-risk HPV types (16,18,31,33,35,39,45,51,52,56,58,59,66,68).Cervical sources are required for HPV testing.If a vaginal source from a patient who has had atotal hysterectomy with removal of cervix wassubmitted, please contact the testing laboratoryfor alternative testing options.For additional information, please refer tohttp://education.iVilka/faq/RWX965w1(This link if provided for information/educational purposes only.)THIS TEST WAS PERFORMED AT:[address] [place] [phone] HOLBROOK MD HPV mRNA E6/E7 [facility] HPV 16 RNA [facility] HPV 18/45 RNA [facility] 04/01/2023 04/02/2023 10: 15 AM EDT Rylee Adam [facility] CYTOLOGY ORDERABLES F inal Result [facility] [address] [place] [phone] * Pap Smear (04/01/2023 12:00 AM EDT) 04/01/2023 04/02/2023 10: 15 AM EDT Narrative [facility] - 04/24/2023 4:11 PM EDT ----- ------- Name: Gina Pate ? Age/Sex: 67/F ? : 1955 Unit#: [id number] ?? Attend Dr: RYLEE ADAM CNM ?Re04/01/23 ?Status: DEP REF ? Location: HO.HHCLNP ? Disch: ? ----- ------- SPEC : [id number] ?RECD: 04/02/23-5 ? STATUS: ??SOUT ? REQ NUM: [id number] ? KEE: 04/01/23- ? SUBM DR: RYLEE ADAM CNM ? ENTERED: ??04/05/23-5 ?SP TYPE: Pap Smr ?OTHR : ? [...] 66, 68) ? HPV testing performed by [employer], [place], [place]. ??See reference laboratory ?? portion of the EMR for entire report. ?Clinical Information LMP:Menopausal Previous PAP test:2017, ASCUS Other history:SAMI I ? Material Received ?? ThinPrep-Cervical ----- ------- Signed (signature on file) Ranjana Kaufman Amanda 04/24/231 ? ----- ------- ? END OF REPORT ? us Rylee Adam [facility] CYTOLOGY ORDERABLES F inal Result [facility] [address] [place] [phone] from Last 3 Months or Most Recently Relevant to Health Maintenance Insurance [facility] - SCO DENTAL - [facility] Care Teams Simulation Developer Relationship Specialty Start Date End Date Cecy Pabon FNP [address] [place] [address] PCP - General Family Medicine 09/10/22
--- OUTSIDE RECORDS SUMMARY | 2024-12-14 09:04 | XMS_ITS | Encounter Summary ---
Author Organization [employer] Address [address] [place] [address] Care Team Providers Care Char Filter Operator Name Role Phone Cecy Pabon MOLDER APPRENTICE Primary Care Provider [phone] Encounter Details Date Type Department Care Team ([facility] Contact Info) Description 06/09/2024 Orders Only [facility] [address] [place], [place] [phone] ProviderJovan MD Social History Tobacco Use Types [...] Description 12/25/2024 9:15 AM EDT Office Visit [facility] [address] [place], [place] [phone] Cecy Pabon FNP [address] [place] [address] documented as of this encounter Procedures Procedure [...] documented as of this encounter Care Teams Char Filter Operator Relationship Specialty Start Date End Date Cecy Pabon FNP [address] [place] [address] PCP - General Family Medicine 09/10/22 documented as of this encounter
--- OUTSIDE RECORDS SUMMARY | 2024-12-14 09:04 | XMS_ITS | Encounter Summary ---
Author Organization [employer] Address [address] [place] [address] Care Team Providers Care Production Grader Name Role Phone Cecy Pabon Primary Care Provider [phone] Reason for Visit * Reason Onset Date Comments Nurse Triage 12/14/2023 Encounter Details Date Type Department Care Team ([facility] Contact Info) Description 12/14/2023 Telephone [facility] [address] [place] [address] Cecy Pabon FNP [address] [place], [place] [phone] Nurse Triage Social History Tobacco Use Types [...] EDT Please assist with obtaining and scanning [facility] ED notes for provider to reivew prior to telehealth visit tomorrow. Future Appointments Date Time Provider Department Center 12/15/2023 9:30 AM Dinesh Gamino MD [facility] 01/21/2024 9:00 AM Margaret De La Rosa [facility] * Telephone Encounter - Samira Izquierdo RN - 12/14/2023 2:40 PM EDT Call to [facility], spoke with nico Wheeler who is on HIPAA. Reports pt went into ER due toright sided rib pain. Pt found to have a nodule on rib. Per [facility] ED notes pt discharged home stable.Pt CXR [...] Center 12/15/2023 9:30 AM Dinesh Gamino MD [facility] MED [facility] 01/21/2024 9:00 AM Margaret De La Rosa, OD [facility] Video visit offered and caller accepted Positive Triage Question: * Patient wants to be seen * All higher-acuity triage questions were negative Care Advice Discussed: * Continue Treatment * Reasons To Call Back - You become worse * Telephone Encounter - Jadiel Torre - 12/14/2023 1:53 PM EDT Patient calling to report ED visit on : Date: 12/13/23 Hospital: [facility] Seen for: Chest Pain Pt stated still feeling symptoms Symptoms: Chest Pain - Adult, Abdominal Pain - Female - Not Outcome: Transfer to a nurse or provider NOW! Reason: Trouble breathing documented in this encounter Plan of Treatment Upcoming Encounters Date Type Department Care Team (Late st Contact Info) Description 12/25/2024 9:15 AM EDT Office Visit [facility] [address] [place] [address] Cecy Pabon FNP [address] [place] [address] documented as of this encounter Visit Diagnoses Not on filedocumented in this encounter Additional Health Concerns Assessment Noted Time PHQ-9 Depression Total Score: 0 02/05/20 23 11:22 AM EDT documented as of this encounter Care Teams Production Grader Relationship Specialty Start Date End Date Cecy Pabon FNP [address] [place] [address] PCP - General Family Medicine 09/10/22 documented as of this encounter
--- OUTSIDE RECORDS SUMMARY | 2024-12-14 09:04 | XMS_ITS | Encounter Summary ---
Author Organization [employer] Address [address] [place] [address] Care Team Providers Care Director Digital Analytics Name Role Phone Cecy Pabon Primary Care Provider Reason for Visit * Reason Comments Pre-visit Planning Pre visit planning L VM Encounter Details Date Type Department Care Team ([facility] Contact Info) Description 12/12/2024 Patient Outreach [facility] [address] [place] [address] Cecy Pabon FNP [address] [place], [place] [phone] Pre-visit Planning (Pre visit planning LVM ) Social History Tobacco Use Types Packs/Day Years [...] AM EDT documented as of this encounter Progress Notes * Wesly Ragsdale - 12/12/2024 4:10 PM EDT LIBBY Green placed outbound call to patient to complete pre-visit planning. No answer at this time.Patient name and were not confirmed. CC left voicemail requesting return call. Direct contact information provided. documented in this encounter Plan of Treatment Upcoming Encounters Date Type Department Care Team ([facility] st Contact Info) Description 12/25/2024 9:15 AM EDT Office Visit [facility] PEDS [address] [place] [address] Cecy Pabon FNP [address] [place] [address] documented as of this encounter Visit Diagnoses Not on filedocumented in this encounter Additional Health Concerns Assessment Noted Time PHQ-9 Depression Total Score: 15 024 9:58 AM EST documented as of this encounter Care Teams Director Digital Analytics Relationship Specialty Start Date End Date Cecy Pabon FNP [address] [place] [phone] PCP - General Family Medicine 09/10/22 documented as of this encounter
--- OUTSIDE RECORDS SUMMARY | 2024-12-14 09:04 | XMS_ITS | Encounter Summary ---
Author Organization [employer] Address [address] [place] [address] Care Team Providers Care Military Aircraft Designer Name Role Phone Cecy Pabon Primary Care Provider Reason for Visit * Reason Onset Date Comments Chart Prep 12/12/2024 Encounter Details Date Type Department Care Team ([facility] Contact Info) Description 12/12/2024 Telephone [facility] MED & PEDS [address] [place] [address] eCcy Pabon FNP [address] [place] [address] Chart Prep Social History Tobacco Use Types Packs/Day Years [...] encounter Miscellaneous Notes * Telephone Encounter - Ian Thornton MA - 12/12/2024 1:07 PM EDT Chart Prep Labs: not done Images: done Referrals: appointment pending Vaccines due: not applicable Screenings: colonoscopy Overdue care gaps: SBIRT and PHQ-9 documented in this encounter Plan of Treatment Upcoming Encounters Date Type Department Care Team ([facility] st Contact Info) Description 12/25/2024 9:15 AM EDT Office Visit [facility] MED & PEDS [address] [place] [address] Cecy Pabon FNP [address] [place] [address] documented as of this encounter Visit Diagnoses Not on filedocumented in this encounter Additional Health Concerns Assessment Noted Time PHQ-9 Depression Total Score: 15 024 9:58 AM EST documented as of this encounter Care Teams Military Aircraft Designer Relationship Specialty Start Date End Date Cecy Pabon FNP [address] [place] [address] PCP - General Family Medicine 09/10/22 documented as of this encounter
--- OUTSIDE RECORDS SUMMARY | 2024-12-14 09:04 | XMS_ITS | Encounter Summary ---
Author Organization [employer] Address [address] [place] [address] Care Team Providers Care Junior Accountant Bookkeeper Name Role Phone Cecy Pabon Primary Care Provider [phone] Reason for Visit * Reason Comments Med Refill Encounter Details Date Type Department Care Team ([facility] st Contact Info) Description 09/17/2022 Refill [facility] [address] [place] [address] Cecy Pabon FNP [address] [place], [place] [phone] Lumbar facet arthropathy Social History Tobacco Use [...] EST Spoke with dtr, pt scheduled for CHURN DRILL OPERATOR Tele Renewal appt 11/17/22 @ 11:30am. ALL CHURN DRILL OPERATOR renewal forms being mailed with return envelope. * Telephone Encounter - Aga Hairston RN - 09/17/2022 1:20 PM EST Duplicate request, was sent/signed 09/10/22. documented in this encounter Plan of Treatment Upcoming Encounters Date Type Department Care Team ([facility] st Contact Info) Description 12/25/2024 9:15 AM EDT Office Visit [facility] MED & PEDS [address] [place] [address] Cecy Pabon FNP [address] [place] [address] documented as of this encounter Visit Diagnoses Diagnosis Lumbar facet arthropathy Spondylosis of unspecified site without mention of myelopathy documented in this encounter Care Teams Junior Accountant Bookkeeper Relationship Specialty Start Date End Date Cecy Pabon FNP [address] [place] [address] PCP - General Family Medicine 09/10/22 documented as of this encounter
--- OUTSIDE RECORDS SUMMARY | 2024-12-14 09:04 | XMS_ITS | Encounter Summary ---
Author Organization [employer] [facility] Address [address] [place] [address] Care Team Providers Care Devops Engineer Name Role Phone Cecy Pabon Primary Care Provider [phone] Encounter Details Date Type Department Care Team ([facility] Contact Info) Description 09/10/2022 Telephone [facility] MEDICINE [address] [place] [address] Jordan Montesinos MD Social History Tobacco Use [...] Upcoming Encounters Date Type Department Care Team ([facility] Contact Info) Description 12/25/2024 9:15 AM EDT Office Visit [facility] CHC MED & PEDS [address] [place], [place] [phone] Cecy Pabon FNP [address] [place], [place] [phone] documented as of this encounter Visit Diagnoses Not on filedocumented in this encounter Care Teams Devops Engineer Relationship Specialty Start Date End Date Cecy Pabon FNP [address] [place] [address] PCP - General Family Medicine 09/10/22 documented as of this encounter
[2024-12-14 14:21] LABS: MANUAL DIFF FLAG NO
[2024-12-14 14:25] LABS: Basophils Percent Auto 0.3 % (0-2); Eosinophils Absolute Auto 0.1 X10*3/uL (0.0-0.4); Eosinophils Percent Auto 0.9 % (0-4); Hematocrit 38.6 % (37.0-47.0); Hemoglobin 12.5 g/dl (12.0-16.0); Imm Gran Abs Auto 0.09 X10*3/uL (0.00-0.03); Imm Gran Pct Auto 1.2 % (0.0-0.4); Lymphocytes Absolute Auto 2.1 X10*3/uL (1.2-4.9); Lymphocytes Percent Auto 28.9 % (20-40); Mean Corpuscular HGB Conc 32.4 g/dl (31.0-35.0); Mean Corpuscular Hemoglobin 29.3 pg (27.0-33.0); Mean Corpuscular Volume 90.6 fL (80.0-98.0); Mean Platelet Volume 9.7 fL (9.4-12.3); Monocytes Absolute Auto 0.7 X10*3/uL (0.1-1.2); Monocytes Percent Auto 8.8 % (2-11); Neutrophils Absolute Auto 4.4 x10*3/uL (2.0-8.3); Neutrophils Percent Auto 59.9 % (45-73); Platelet Count 367 X10*3/uL (160-400); Red Blood Count 4.26 X10*6/uL (4.20-5.50); Red Cell Distribution Width 13.2 % (11.0-16.0); White Blood Count 7.4 X10*3/uL (4.8-10.8)
[2024-12-14 14:36] LABS: Creatinine Urine 187.92 mg/dL
[2024-12-14 14:38] LABS: Estimated Average Glucose 123 mg/dL; Hemoglobin A1C 134.9429 umol/L; Hemoglobin A1c % 5.9 % (<6.0); Total Hemoglobin (HGBA1C) 3332.8067 umol/L
[2024-12-14 14:46] LABS: Alanine Aminotransferase 43 U/L (0-31); Albumin Level 4.7 g/dL (3.5-5.0); Alkaline Phosphatase 76 U/L (39-117); Aspartate Amino Transferase 27 U/L (5-31); Blood Urea Nitrogen 15 mg/dL (9-16); Calcium 9.6 mg/dL (8.4-10.2); Cholesterol 177 mg/dL (<200); Estimated Glomerular Filt Rate > 60; Glucose Random 92 mg/dL (60-115); HDL Cholesterol 50 mg/dL (>40); LDL Cholesterol Calculated 96 mg/dL (<100); Total Protein 7.3 g/dL (6.5-8.0); Triglycerides 157 mg/dL (<150)
[2024-12-14 15:01] LABS: Anion Gap 13 (12-20); Carbon Dioxide 27 mmol/L (22-29); Chloride 105 mmol/L (96-108); Potassium 3.3 mmol/L (3.3-5.1); Sodium 142 mmol/L (135-145)
[2024-12-14 15:09] LABS: TSH reflex Free T4 3.15 uIU/mL (0.32-4.0)
[2024-12-14 16:39] LABS: CT PCR NOT DETECTED (Not Detect.); NG PCR NOT DETECTED (Not Detect.)
[2024-12-15 08:11] LABS: HIV AB/AG Nonreactive (Nonreactive); HIV Num 1 0.05 S/CO (0.00-0.99)
[2024-12-15 19:59] LABS: HCV Log PCR <1.18 NOT DETECTED Log IU/mL (NOT DETECTED); HepC Viral Load <15 NOT DETECTED IU/mL (NOT DETECTED)
[2024-12-15 21:09] LABS: RPR Rapid Plasma Reagin NON-REACTIVE (NON-REACTIVE)
== END 2024-12-14 08:35 | disposition home or self-care (01) ==
LOC: HO.CHCLDS 08:34
PROVIDERS: Visit Provider Registered Nurse
DX: Z00.00 Encounter for general adult medical examination without abnormal findings (principal); Z13.1 Encounter for screening for diabetes mellitus; Z13.6 Encounter for screening for cardiovascular disorders
CPT/HCPCS: 36415; 80053; 80061; 82043; 82570; 83036; 84443; 85025; 86592; 87389; 87491; 87522; 87591

== ENCOUNTER 2024-12-25 14:11 | Outpatient (REF) | payer OTHER, SELFPAY ==
--- OUTSIDE RECORDS SUMMARY | 2024-12-25 16:59 | XMS_ITS | Encounter Summary ---
Author Organization [employer] Address [address] [place] [address] Care Team Providers Care Dye Colorist Formulator Name Role Phone Cecy Pabon Primary Care Provider [phone] Reason for Visit * Reason Comments Med Refill Encounter Details Date Type Department Care Team ([facility] st Contact Info) Description 09/17/2022 Refill [facility] [address] [place] [address] Cecy Pabon FNP [address] [place], [place] [phone] Lumbar facet arthropathy Social History Tobacco Use [...] EST Spoke with dtr, pt scheduled for COAL AND ASH SUPERVISOR Tele Renewal appt 11/17/22 @ 11:30am. ALL COAL AND ASH SUPERVISOR renewal forms being mailed with return envelope. * Telephone Encounter - Aga Hairston RN - 09/17/2022 1:20 PM EST Duplicate request, was sent/signed 09/10/22. documented in this encounter Plan of Treatment Upcoming Encounters Date Type Department Care Team ([facility] st Contact Info) Description 04/02/2025 11:15 AM EDT Office Visit [facility] MED & PEDS [address] [place] [address] Cecy Pabon FNP [address] [place] [address] documented as of this encounter Visit Diagnoses Diagnosis Lumbar facet arthropathy Spondylosis of unspecified site without mention of myelopathy documented in this encounter Care Teams Dye Colorist Formulator Relationship Specialty Start Date End Date Cecy Pabon FNP [address] [place] [address] PCP - General Family Medicine 09/10/22 documented as of this encounter
--- OUTSIDE RECORDS SUMMARY | 2024-12-25 16:59 | XMS_ITS | Encounter Summary ---
Author Organization [employer] Address [address] [place] [address] Care Team Providers Care Baseball Club Manager Name Role Phone Cecy Pabon MANDREL PRESS HAND Primary Care Provider [phone] Encounter Details Date Type Department Care Team ([facility] Contact Info) Description 06/09/2024 Orders Only [facility] CHC MED & PEDS [address] [place], [place] [phone] ProviderJovan MD Social History Tobacco Use Types [...] Care Team (Late st Contact Info) Description 04/02/2025 11:15 AM EDT Office Visit [facility] CHC MED & PEDS [address] [place], [place] [phone] Cecy Pabon FNP [address] [place] [address] documented as of this encounter Procedures Procedure [...] documented as of this encounter Care Teams Baseball Club Manager Relationship Specialty Start Date End Date Cecy Pabon FNP [address] [place] [address] PCP - General Family Medicine 09/10/22 documented as of this encounter
--- OUTSIDE RECORDS SUMMARY | 2024-12-25 16:59 | XMS_ITS | Encounter Summary ---
Author Organization [employer] [facility] Address [address] [place] [address] Care Team Providers Care Engineering Surveyor Name Role Phone Cecy Pabon Primary Care Provider [phone] Encounter Details Date Type Department Care Team ([facility] Contact Info) Description 09/10/2022 Telephone [facility] MEDICINE [address] [place] [address] Jordan Montesinos MD Social History Tobacco Use [...] Upcoming Encounters Date Type Department Care Team ([facility] Contact Info) Description 04/02/2025 11:15 AM EDT Office Visit [facility] CHC MED & PEDS [address] [place], [place] [phone] Cecy Pabon FNP [address] [place], [place] [phone] documented as of this encounter Visit Diagnoses Not on filedocumented in this encounter Care Teams Engineering Surveyor Relationship Specialty Start Date End Date Cecy Pabon FNP [address] [place] [address] PCP - General Family Medicine 09/10/22 documented as of this encounter
--- OUTSIDE RECORDS SUMMARY | 2024-12-25 17:00 | XMS_ITS | Encounter Summary ---
Author Organization [employer] Address [address] [place] [address] Care Team Providers Care Block Saw Operator Name Role Phone Cecy Pabon Primary Care Provider [phone] Reason for Visit * Reason Onset Date Comments Nurse Triage 12/14/2023 Encounter Details Date Type Department Care Team ([facility] Contact Info) Description 12/14/2023 Telephone [facility] MEDICINE [address] [place] [address] Cecy Pabon FNP [address] [place], [place] [phone] Nurse Triage Social History Tobacco Use Types [...] EDT Please assist with obtaining and scanning [facility] ED notes for provider to reivew prior to telehealth visit tomorrow. Future Appointments Date Time Provider Department Center 12/15/2023 9:30 AM Dinesh Gamino MD [facility] 01/21/2024 9:00 AM Margaret De La Rosa [facility] * Telephone Encounter - Samira Izquierdo RN - 12/14/2023 2:40 PM EDT Call to [facility], spoke with nico Wheeler who is on HIPAA. Reports pt went into ER due toright sided rib pain. Pt found to have a nodule on rib. Per [facility] ED notes pt discharged home stable.Pt CXR [...] Center 12/15/2023 9:30 AM Dinesh Gamino MD [facility] 01/21/2024 9:00 AM Margaret De La Rosa, OD [facility] Video visit offered and caller accepted Positive Triage Question: * Patient wants to be seen * All higher-acuity triage questions were negative Care Advice Discussed: * Continue Treatment * Reasons To Call Back - You become worse * Telephone Encounter - Jadiel Torre - 12/14/2023 1:53 PM EDT Patient calling to report ED visit on : Date: 12/13/23 Hospital: [facility] Seen for: Chest Pain Pt stated still [...] [facility] [address] [place] [address] Cecy Pabon FNP [address] [place] [address] documented as of this encounter Visit Diagnoses Not on filedocumented in this encounter Additional Health Concerns Assessment Noted Time PHQ-9 Depression Total Score: 0 02/05/20 23 11:22 AM EDT documented as of this encounter Care Teams Block Saw Operator Relationship Specialty Start Date End Date Cecy Pabon FNP [address] [place] [address] PCP - General Family Medicine 09/10/22 documented as of this encounter
--- OUTSIDE RECORDS SUMMARY | 2024-12-25 17:00 | XMS_ITS | Encounter Summary ---
Author Organization [employer] Address [address] [place] [address] Care Team Providers Care Rib Chopper Name Role Phone Cecy Pabon Primary Care Provider [phone] Encounter Details Date Type Department Care Team ([facility] Contact Info) Description 12/25/2024 9:15 AM EDT Office Visit [facility] CHC MED & PEDS [address] [place], [place] [phone] Cecy Pabon FNP [address] [place], [place] [phone] Nasal congestion (Primary Dx) Social History Tobacco Use Types Packs/Day Years [...] Sign Reading Time Taken Comments Blood Pressure 136/78 12/25/2024 8:55 AM EDT Pulse 80 12/25/2024 8:55 AM EDT Temperature 36 ??C (96.8 ??F) 12/25/2024 8:55 AM EDT Respiratory Rate 20 12/25/2024 8:55 AM EDT Oxygen Saturation 98% 12/25/2024 8:55 AM EDT Inhaled Oxygen Concentration - - Weight 57.8 kg (127 lb 6.4 oz) 12/25/2024 8:55 A M EDT Height 167.6 cm (5' 6 ) 12/25/2024 8:55 AM EDT Body Mass Index 20.56 12/25/2024 8:55 AM EDT documented in this encounter Plan of Treatment Upcoming Encounters Date Type Department Care Team (Late st Contact Info) Description 04/02/2025 11:15 AM EDT Office Visit [facility] MED & PEDS [address] [place] [address] Cecy Pabon FNP [address] [place] [address] Scheduled Orders Name Type Priority Associated Diagnoses Orde r Schedule Respiratory Viral Panel PCR Lab Routine Nasal congestion Expected: 12/25/2024 (Approximate), Expires: 12/25/2025 documented as of this encounter Procedures Procedure Name Priority Date/Time Associated Diagnosis Comments POCT RAPID COVID ANTIGEN Routine 12/25/2024 10:57 AM EDT Nasal congestion POCT INFLUENZA B Routine 12/25/2024 10:5 7 AM EDT Nasal congestion POCT INFLUENZA A Routine 12/25/2024 10:5 3 AM EDT Nasal congestion documented in this encounter Results * POCT Rapid Covid-19 BinaxNOW (12/25/2024 10:57 AM EDT) Rapid COVID Ag Negative QC Media Lot # [id number] Lot# Expiration Date Swab 12/25/2024 10:5 7 AM EDT us Cecy Phalen MEDICAL OFFICER PSYCHIATRY POINT OF CARE TEST ENTER/EDIT ORDERABLES Final Result * POCT Rapid Influenza B OSOM (12/25/2024 10:57 AM EDT) Pathologist [facility] Rapid Influenza B Ag Negative Negative, Indeterminate QC Media Lot # [id number] Lot# Expiration Date Swab 12/25/2024 10:5 7 AM EDT us Cecy Phalen MEDICAL OFFICER PSYCHIATRY POINT OF CARE TEST ENTER/EDIT ORDERABLES Final Result * POCT Rapid Influenza A OSOM (12/25/2024 10:53 AM EDT) Pathologist [facility] Rapid Influenza A Ag Negative Negative, Indeterminate QC Media Lot # [id number] Lot# Expiration Date Swab Nasopharyngeal structure / Unknown 12/25/2024 10:53 AM EDT us Cecy Phalen MEDICAL OFFICER PSYCHIATRY POINT OF CARE TEST ENTER/EDIT ORDERABLES Final Result documented in this encounter Visit Diagnoses Diagnosis Nasal congestion- Primary Other diseases of nasal cavity and sinuses documented in this encounter Additional Health Concerns Assessment Noted Time PHQ-9 Depression Total Score: 15 024 9:58 AM EST documented as of this encounter Care Teams Rib Chopper Relationship Specialty Start Date End Date Cecy Pabon FNP [address] [place] [address] PCP - General Family Medicine 09/10/22 documented as of this encounter
--- OUTSIDE RECORDS SUMMARY | 2024-12-25 17:00 | XMS_ITS | Clinical Summary ---
Author Organization [employer] Address [address] [place] [address] Care Team Providers Care C 40A Crew Chief Name Role Phone Cecy Pabon SUPERVISOR CUTTING DEPARTMENT Primary Care Provider [phone] Allergies Active Allergy Reactions Criticality Noted Date [...] 25 doses. 50 tablet 11/18/19 25 Active pseudoephedrine-gu aiFENesin ER (Mucinex D) 60-600 MG 12 hr tablet Take 1 tablet by mouth every 12 (twelve) hours if needed for congestion. Do not crush, chew, or split. 60 tablet 12/26/19 25 026 Active Active Problems Problem Noted Date Diagnosed Date Lateral epicondylitis of left elbow 09/19/2024 PMB (postmenopausal bleeding) 08/04/2024 Overview (08/04/2024): Evaluated by [facility] in Apr - May 2024 EMB Apr [...] date approx 40 years ago November 2023: [facility] CXR with question of 7mm nodule right lung 12/25/23: CT Chest w/o contrast [place] [facility] nonspecific findings of irregular areas of nodular density within the right lung apex and anteriorly within the right middle lobe and peripherally long left major fissure 01/04/24: Referral to [facility] Pulmonology for further evaluation and management Following with [facility] Pulm - next appt scheduled October 2024 Assessment & Plan (01/04/2024 8:19 AM EDT): Pertinent hx: tuberculosis infx s/p tx approx 40 years ago, hx of smoking cigarettes w/ quit date approx 40 years ago November 2023: [facility] CXR with question of 7mm nodule right lung 12/25/23: CT Chest w/o contrast [place] [facility] nonspecific findings of irregular areas of nodular density within the right lung apex and anteriorly within the right middle lobe and peripherally long left major fissure 01/04/24: Referral to [facility] Pulmonology for further evaluation and management Osteopenia [...] 02/22/24 Cervical CA: 04/01/23 NILM HPV neg [facility]. Previous 07/07/2017 - Pap ASCUS, HPV neg. Due for co-testing Mar 2026. Colon CA: 03/04/2021: Colonoscopy by Dr. Fox (records requested 08/04/24) Optometry: [facility] 12/17/21 Dental: established with dental home [facility] Dental BMD: osteopenia Mar 2023 Last PE: [...] Per consult note: CT brain WO at [facility] [place] MRI brain WO at [facility] [place]: [place] Assessment & Plan (03/11/2023 6:31 AM EDT): ?? Followed by Dr. Liz - [facility] ?? Continues with sumatriptan PRN migraines Per consult note: ?? CT brain WO [place] [facility] [place]: [place] ?? MRI brain WO at [facility] [place] November 2020[place] Dysplastic nevus of trunk 02/03/2023 Cervical arthritis 01/25/2019 Overview (10/28/2024): On her C-spine MRI [facility] July 05, 2019 she had spondylosis at [...] facet arthropathy at L4-L5 bilaterally with stable mkut-vc-wvscalwl spinal canal stenosis Development of small shallow [...] Right shoulder MRI October 2020 performed at [facility] demonstrated a high-grade partial thickness bursal [...] arthroscopic hardware removal by Dr. Lentz at [facility] Assessment & Plan (10/28/2024 2:57 PM EST): [...] Encounters Date Type Department Care Team Description 12/25/2024 9:15 AM EDT Office Visit [facility] [address] [place] [address] Cecy Pabon FNP Nasal congestion (Primary Dx) 12/25/2024 Travel 12/12/2024 Patient Outreach [facility] [address] [place], [place] [phone] Cecy Pabon FNP Pre-visit Planning (Pre visit planning LVM ) 12/12/2024 Telephone [facility] [address], [place] [phone] Cecy Pabon FNP Chart Prep 11/23/2024 Telephone [facility] [address], [place] [phone] Cecy Pabon FNP TC: EMG review 11/17/2024 8:40 AM EDT Office Visit [facility] [address], [place] [phone] Jose Vizcaino MD Acute otitis externa of right ear, unspecified type (Primary Dx); Benign hypertension 10/27/2024 3:15 PM EST Office Visit [facility] [address] [place] [address] Cecy Pabon FNP Incomplete tear of right rotator cuff, unspecified whether traumatic (Primary Dx); Numbness and tingling in right hand; Healthcare maintenance; Supraspinatus tendinitis, unspecified laterality; Contact dermatitis, unspecified contact dermatitis type, unspecified trigger; Muscle pain; Cervical arthritis; Benign hypertension 10/27/2024 Travel 10/24/2024 Telephone [facility] [address] [place], [place] [phone] Cecy Pabon FNP Nurse Triage from Last 3 Months Immunizations Name Administration [...] Mass Index 20.56 12/25/2024 8:55 AM EDT Plan of Treatment Upcoming Encounters Date Type Department Care Team (Late st Contact Info) Description 04/02/2025 11:15 AM EDT Office Visit [facility] [address] [place] [address] Cecy Pabon, SUPERVISOR CUTTING DEPARTMENT [address] [place] [address] Health Maintenance Due Date Last Done Comments CT Colonography 1955 Colonoscopy 1955 Colorectal Cancer Screening 1955 Dental Prophylaxis 1955 Dental X-Ray: Bitewings 1955 Dental X-Ray: Full Mouth 1955 FIT DNA/Cologuard 1955 FIT 1955 FOBT 1955 Sigmoidoscopy 1955 Dental Oral Exam 02/11/2023 08/12/2022 Mammogram 02/21/2025 02/22/2024, 01/29, 09/17/2020, Additional history exists Influenza Vaccine (#1) 2025 , 06/19/2020, 06/09/2019, Additional history exists Postponed from 04/30/2024 (Patient Refused) COVID-19 Vaccine ( season) 2025 03/11/2023, 10/07/2021, 01/08/2021, Additional history exists Postponed from 04/30/2024 (Patient Refused) Depression Screening 08/04/2025 08/04/2024, 08/04/20 24 SDOH Screening 08/04/2025 08/04/2024 Tobacco Screening 11/17/2025 11/17/2024 Diabetes: Hemoglobin A1C 12/14/2025 12/14/2024, 05/31 Alcohol/Substance Use Screening 12/25/2025 12/25/2024 HPV/Cotest 04/01/2026 04/01/2023, 07/07/2017 Pap Smear 04/01/2026 04/01/2023 Lipid Panel 12/14/2029 12/14/2024, 10/01, 06/25/2023, Additional history exists RSV Patients and Patients Aged 60 years or older (1 - 1-dose 75+ series) 11/24/2030 DTaP/Tdap/Td Vaccines (3 - Td or Tdap) 03/11/2033 03/11/2023, 01/19/2011 Zoster Vaccines Completed 02/27/2022, 11/29, 08/26/2017 Pneumococcal Vaccine: 50+ Years Completed 03/11/2023 Hepatitis C Screening Completed 12/14/2024 HIB Vaccines Aged Out No longer eligi [...] 12/25/2024 10:5 3 AM EDT Nasal congestion ALBUMIN, RANDOM URINE W/CREATININE Routine 12/14/2024 8:40 AM EDT Healthcare maintenance CHLAMYDIA/N. GONORRHOEAE RNA, TMA, UROGENITAL Routine 12/14/2024 8:40 AM EDT Healthcare maintenance HIV 1/2 ANTIGEN/ANTIBODY, FOURTH GENERATION W/RFL Routine 12/14/2024 8:36 AM EDT Healthcare maintenance RPR (MONITOR) W/REFL TITER Routine 12/14/2024 8:36 AM EDT Healthcare maintenance HEPATITIS C VIRAL RNA, QUANTITATIVE, REAL-TIME PCR Routine 12/14/2024 8:36 AM EDT Healthcare maintenance CBC WITH AUTO DIFFERENTIAL Routine 12/14/2024 8:36 AM EDT Healthcare maintenance COMPREHENSIVE METABOLIC PANEL Routine 12/14/2024 8:36 AM EDT Healthcare maintenance TSH W/REFLEX TO FT4 Routine 12/14/2024 8 :36 AM EDT Healthcare maintenance HEMOGLOBIN A1C Routine 12/14/2024 8:36 AM EDT Healthcare maintenance LIPID PANEL, STANDARD Routine 12/14/2024 8:36 AM EDT Healthcare maintenance POCT INFLUENZA B (ID NOW RAPID MOLECULAR) [...] TOMOSYNTHESIS BILATERAL Routine 02/22/2024 8:05 AM EDT HPV MRNA E6/E7 REFLEX TO HPV 16, 18/45 Routine 04/01/2023 12:00 AM EDT PAP SMEAR Routine 04/01/2023 12:00 AM EDT COMPREHENSIVE ORAL EVALUATION - NEW OR ESTABLISHED PATIENT Routine 08/12/2022 10:00 AM EST from Last 3 Months or Most Recently Relevant to Health Maintenance Results * POCT Rapid Covid-19 BinaxNOW (12/25/2024 10:57 AM EDT) Only the most recent of2 resultswithin the time period is included. Rapid COVID Ag Negative QC Media Lot # [id number] Lot# Expiration Date Swab 12/25/2024 10:5 7 AM EDT Cecy Ramanajose alejandro SUPERVISOR CUTTING DEPARTMENT POINT OF CARE TEST ENTER/EDIT ORDERABLES Final Result * POCT Rapid Influenza B OSOM (12/25/2024 10:57 AM EDT) Rapid Influenza B Ag Negative Negative, Indeterminate QC Media Lot # [id number] Lot# Expiration Date Swab 12/25/2024 10:5 7 AM EDT us Langritchie Pabon SUPERVISOR CUTTING DEPARTMENT POINT OF CARE TEST ENTER/EDIT ORDERABLES Final Result * POCT Rapid Influenza A OSOM (12/25/2024 10:53 AM EDT) Rapid Influenza A Ag Negative Negative, Indeterminate QC Media Lot # [id number] Lot# Expiration Date Swab Nasopharyngeal structure / Unknown 12/25/2024 10:53 AM EDT us Cecy CRAFTP POINT OF CARE TEST ENTER/EDIT ORDERABLES Final Result * Albumin, Random Urine W/Creatinine (12/14/2024 8:40 AM EDT) Pathologist [facility] Creatinine, Urine 187.92 mg/dL [facility] Microalbumin Urine 32.0 mg/L [facility] Microalbum Creatinine Ratio Ur 17.0 <30 ug/mg cr [facility] Comment:Albumin/Creatinine R atio Reference Ranges: Normal: < 30 ug/mg creatinine Microalbuminuria: 30 - 300 ug/mg creatinineClinical Albuminuria: > 300 ug/mg creatinine Urine 12/14/2024 8:40 AM EDT 12/14/2024 2:03 PM EDT us Cecy Pabon [facility] URINE ORDERABLES Final Res ult [facility] [address] [place] [phone] * Chlamydia/N. Gonorrhoeae RNA, TMA, Urogenitial (12/14/2024 8:40 AM EDT) CT PCR NOT DETECTED Not Detect. [facility] Comment:A not detected test result does not exclude the possibilityof infection because test results can be affected byimproper specimen collection, concurrent antibiotic therapy,or the number of organisms in the specimen which may bebelow the sensitivity of the test. As with many diagnostictests, results from the Xpert CT/NG assay should beinterpreted in conjunction with other laboratory andclinical data available to the clinician.Xpert CT/NG performance has not been evaluated in patientsless than 14 years of age. The assay should not be used forthe evaluationof suspected sexual abuse or for other medico-legalindications. Additional testing is recommended in anycircumstance when false positive or false negative resultscould lead to adverse medical, social or psychologicalconsequences. NG PCR NOT DETECTED Not Detect. [facility] Comment:A not detected test result does not exclude the possibilityof infection because test results can be affected byimproper specimen collection, concurrent antibiotic therapy,or the number of organisms in the specimen which may bebelow the sensitivity of the test. As with many diagnostictests, results from the Xpert CT/NG assay should beinterpreted in conjunction with other laboratory andclinical data available to the clinician.Xpert CT/NG performance has not been evaluated in patientsless than 14 years of age. The assay should not be used forthe evaluationof suspected sexual abuse or for other medico-legalindications. Additional testing is recommended in anycircumstance when false positive or false negative resultscould lead to adverse medical, social or psychologicalconsequences. Urine (Urine, Random) 12/14/2024 8:40 AM EDT 12/14/2024 2:08 PM EDT Narrative [facility] - 12/14/2024 4:39 PM EDT Urine Cecy Pabon [facility] MICROBIOLOGY - GENERAL ORD ERABLES Final Result Performing Organization Address [facility] Co de Phone Number [facility] [address] [place] [phone] * TSH with Reflex to Free T4 (12/14/2024 8:36 AM EDT) [facility] TSH reflex Free T4 3.15 0.32 - 4.0 uIU/mL [facility] Blood 12/14/2024 8:36 AM EDT 12/14/2024 2:13 PM EDT Cecy Pabon [facility] BLOOD ORDERABLES Final Res ult Performing Organization Address [facility] Number [facility] [address] [place] [phone] * Hepatitis C Viral RNA, Quantitative, Real-Time PCR (12/14/2024 8:36 AM EDT) [facility] Hepatitis C Viral Load <15 NOT DETECTED NOT DETECTED IU/mL [facility] HCV Log PCR <1.18 NOT DETECTED NOT DETECTED Log IU/mL [facility] Comment:For additional infor casey, please refer tohttp://education.Handle/faq/VJL56k6(This link is being provided for informational/educational purposes only.)THIS TEST WAS PERFORMED AT:[employer] [place] [phone] HOLBROOK MD Blood 12/14/2024 8:36 AM EDT 12/14/2024 2:[address] [facility] BLOOD ORDERABLES Final Res ult Performing Organization Address [facility] Co de Phone Number [facility] [address] [place] [phone] * (ABNORMAL) CBC auto differential (12/14/2024 8:36 AM EDT) White Blood Count 7.4 4.8 - 10.8 X10*3/uL [facility] Red Blood Count 4.26 4.20 - 5.50 X10*6/uL [facility] Hemoglobin 12.5 12.0 - 16.0 g/dl [facility] Hematocrit 38.6 37.0 - 47.0 % [facility] Mean Corpuscular Volume 90.6 80.0 - 98.0 fL [facility] Mean Corpuscular Hemoglobin 29.3 27.0 - 33.0 pg [facility] Mean Corpuscular HGB Conc 32.4 31.0 - 35.0 g/dl [facility] Red Cell Distribution Width 13.2 11.0 - 16.0 % [facility] Platelet Count 367 160 - 400 X10*3/uL [facility] Mean Platelet Volume 9.7 9.4 - 12.3 fL [facility] Neutrophils Percent Auto 59.9 45 - 73 % [facility] Imm Gran Pct Auto 1.2(H) 0.0 - 0.4 % [facility] Lymphocytes Percent Auto 28.9 20 - 40 % [facility] Monocytes Percent Auto 8.8 2 - 11 % [facility] Eosinophils Percent Auto 0.9 0 - 4 % [facility] Basophils Percent Auto 0.3 0 - 2 % [facility] NRBC Pct Auto 0.0 0.0 - 0.2 /100WBC [facility] Neutrophils Absolute Auto 4.4 2.0 - 8.3 x10*3/uL [facility] Imm Gran Abs Auto 0.09(H) 0.00 - 0.03 X10*3/uL [facility] Lymphocytes Absolute Auto 2.1 1.2 - 4.9 X10*3/uL [facility] Monocytes Absolute Auto 0.7 0.1 - 1.2 X10*3/uL [facility] Eosinophils Absolute Auto 0.1 0.0 - 0.4 X10*3/uL [facility] Basophils Absolute Auto 0.0 0.0 - 0.2 X10*3/uL [facility] NRBC Abs Auto 0.000 0.0 - 0.012 X10*3/uL [facility] Blood Venous blood specimen / Unknown 12/14/2024 8:36 AM EDT 12/14/2024 2:19 PM EDT Cecy Pabon [employer]PER[employer] LAB BLOOD ORDERABLES Final Res ult Performing Organization Address [facility] de Phone Number [facility] [address] [place] [phone] * RPR (Monitor) with Reflex to??Titer (12/14/2024 8:36 AM EDT) RPR (Monitor) w/Refl Titer NON-REACTI VE NON-REACT FANTASMA [facility] Comment:THIS TEST WAS PERFOR MED AT:[employer] [place] [phone] HOLBROOK MD Rapid Plasma Reagin Ab Titer TNP [facility] Blood Venous blood specimen / Unknown 12/14/2024 8:36 AM EDT 12/14/2024 2:13 PM EDT Cecy Pabon SUPERVISOR C[employer]TING DEPARTMENT LAB BLOOD ORDERABLES Final Res ult Performing Organization Address [facility] de Phone Number [facility] [address] [place] [phone] * HIV-1/2 Antigen and Antibodies, Fourth Generation, with Reflexes (12/14/2024 8:36 AM EDT) HIV AB/AG Nonreactive Nonreactive [facility] Comment:HIV-1 p24 Ag and/or HIV-1/HIV-2 Ab not detected.A test result that is nonreactive does not exclude thepossibility of exposure to or infection with HIV-1 and/orHIV-2. Nonreactive results in this assay for individualswith prior exposure to HIV-1 and/or HIV-2 may be due toantigen and antibody levels that are below the limit ofdetection of this assay.The [employer] HIV Ag/Ab Combo assay result andsupplemental assay results should be interpreted inconjunction with the patient's clinical presentation,history and other laboratory results. If the results areinconsistent with clinical evidence, additional testing issuggested to confirm the result. Blood Venous blood specimen / Unknown 12/14/2024 8:36 AM EDT 12/14/2024 2:13 PM EDT Cecy Pabon [facility] BLOOD ORDERABLES Final Res ult Performing Organization Address [facility] Co de Phone Number [facility] [address] [place] [address] [phone] * Hemoglobin A1c (12/14/2024 8:36 AM EDT) Hemoglobin A1c 5.9 <6.0 % [facility] Comment:Hemoglobin A1C Refer ence Range Adults: 4.8 - 6.0 % Non diabetic: < 6.0 % Goal: < 7.0 %Additional Action Suggested: > 8.0 %Note: Hemoglobin A1c results are invalid for patients with abnormal amounts of HbF. Blood transfusions may impact the HbA1c concentration in the patient sample. Estimated Average Glucose 123 mg/dL [facility] Comment:eAG = Estimated ave rage glucose which is %A1C expressed asaverage glucose, using the formula of the W5F-VauyxjoPndgwsl Glucose study (ADAG), Diabetes Care, Vol.31,#8,Mar. 2007 Blood Venous blood specimen / Unknown 12/14/2024 8:36 AM EDT 12/14/2024 2:19 PM EDT Cecy Pabon [facility] BLOOD ORDERABLES Final Res ult Performing Organization Address [facility] Co de Phone Number [facility] [address] [place] [phone] * (ABNORMAL) Lipid Panel, Standard (12/14/2024 8:36 AM EDT) Triglycerides 157(H) <150 mg/dL [facility] Comment:Desirable Triglyceri de: less than 150 mg/dLBorderline High Triglyceride 150-199 mg/dLHigh Triglyceride: 200-499 mg/dLVery High Triglyceride: greater than or equal to 5OO mg/dL Cholesterol 177 <200 mg/dL [facility] Comment:Desirable Cholestero l: less than 200 mg/dLBorderline High Cholesterol: 200-239 mg/dLHigh Cholesterol: greater than 239 mg/dL LDL Cholesterol Calculated 96 <100 mg/dL [facility] Comment:Desirable LDL: less than 100 mg/dLNear Optimal/Above Optimal LDL: 110- 129 mg/dLBorderline High LDL: 130-159 mg/dLHigh LDL: 160-189 mg/dLVery High LDL: greater than or equal to 190 mg/dL HDL Cholesterol 50 >40 mg/dL [facility] Comment:Desirable HDL: great er than 40 mg/dL Note: This HDL assay may give artificially low results in patients with liver disease. Blood Venous blood specimen / Unknown 12/14/2024 8:36 AM EDT 12/14/2024 2:13 PM EDT us Cecy Pabon SUPERVISOR CUTTING DEPARTMENT LAB BLOOD ORDERABLES Final Res ult [facility] [address] [place] [phone] * (ABNORMAL) Comprehensive Metabolic Panel (12/14/2024 8:36 AM EDT) Sodium 142 135 - 145 mmol/L [facility] Potassium 3.3 3.3 - 5.1 mmol/L [facility] Chloride 105 96 - 108 mmol/L [facility] Carbon Dioxide 27 22 - 29 mmol/L [facility] Anion Gap 13 12 - 20 [facility] Urea Nitrogen (BUN) 15 9 - 16 mg/dL [facility] Creatinine, Serum 0.79 0.5 - 1.4 mg/dL [facility] Estimated Glomerular Filt Rate >60 [facility] Comment:Chronic Kidney Disea se: Estimated GFR < 60 mL/min/1.85y9Utvapg Kidney Disease: Estimated GFR < 15 mL/min/1.73m2 Glucose 92 60 - 115 mg/dL [facility] Calcium 9.6 8.4 - 10.2 mg/dL [facility] Bilirubin, Total 1.0 0.0 - 1.0 mg/dL [facility] Aspartate Amino Transferase 27 5 - 31 U/L [facility] Alanine Aminotransferase 43(H) 0 - 31 U/L [facility] Total Protein 7.3 6.5 - 8.0 g/dL [facility] Albumin Level 4.7 3.5 - 5.0 g/dL [facility] Alkaline Phosphatase 76 39 - 117 U/L [facility] Blood Venous blood specimen / Unknown 12/14/2024 8:36 AM EDT 12/14/2024 2:13 PM EDT Cecy Pabon SUPERVIS[employer] C[employer]TING [employer]PARTMENT LAB BLOOD ORDERABLES Final Res ult Performing Organization Address City/[facility]/ZIP Co de Phone Number [facility] [address] [place] [phone] * Influenza B (ID NOW Rapid Molecular) (11/17/2024 9:22 AM EDT) [facility] Influenza B Negative Negative, Indeterminate [facility] Swab 11/17/2024 9:22 AM EDT Jose Vizcaino MD POINT OF CARE TEST ENTER/EDIT OR DERABLES Final Result Performing Organization Address [facility]/ZIP Co de Phone Number [facility] [address] [place] [phone] * Influenza A (ID NOW Rapid Molecular) (11/17/2024 9:22 AM EDT) [facility] Influenza A Negative Negative, Indeterminate [facility] Swab 11/17/2024 9:22 AM EDT us Jose Vizcaino MD POINT OF CARE TEST ENTER/EDIT OR DERABLES Final Result [facility] [address] [facility] [place] [phone] * BI Mammogram Screening Tomosynthesis Bilateral (02/22/2024 8:05 AM EDT) Anatomical Region Laterality Modality Breast Bilateral Mammography 02/22/2024 8:05 AM EDT Narrative 03/22/2024 11:10 PM EDT ? [facility] ? [address] ?[place] [address] ? Mammography Report ? Signed ? Patient: Gina Pate ?MR#: [id number] ?? [id number] ? : 1955 ?Acct:[id number] ? Age/Sex: 68 / F ?ADM Date: 02/22/24 ? Loc: HO.MAMMO ? Attending Dr: Cecy Pabon SUPERVISOR CUTTING DEPARTMENT ? Ordering Physician: Cecy Pabon SUPERVISOR CUTTING DEPARTMENT ?Results: 1Negat ?? fantasma ? Date of Service: 02/22/24 ?Follow Up: 1 Year From Orig ?? inal Mammogram ? Procedure(s): MM tomosynthesis screening BI ?? Accession Number(s): [id number] ? cc: Pepper,Cecy SUPERVISOR CUTTING DEPARTMENT ? EXAMINATION: ?? MM SCREENING DIGITAL BREAST [...] by Kate Jaffe MD in OV> ? 03/22/24 2306 ? DD/ 08 ? TD/TT: ? Pencil Sorter: ? Procedure Note Samanta Apple - 03/22/2024 [facility] [address] [place] [address] Mammography Report Signed Patient: Sam Pate#: [id number] : 6Acct:[id number] Age/Sex: 68 / FADM Date: 02/22/24 Loc: MAMMO Attending Dr: Cecy Pabon SUPERVISOR CUTTING DEPARTMENT Ordering Physician: Cecy Pabon FNPResults: 1Negat fantasma Date of Service: 02/22/24Follow Up: 1 Year From Orig inal Mammogram Procedure(s): MM tomosynthesis screening BI Accession Number(s): [id number] cc: Cecy Pabon EXAMINATION: MM SCREENING DIGITAL [...] in OV> 03/22/24 2306 DD/ 0805 TD/TT: Pencil Sorter: Cecy CRAFTP IM BI PROCEDURES Edited Resul t - Final * HPV mRNA E6/E7 w/Reflex to HPV Genotypes 16, 18/45 (04/01/2023 12:00 AM EDT) HPV nRNA E6/E7 Not Detected Not Detected [facility] Comment:Methodology: Transcr iption-Mediated AmplificationThis assay detects E6/E7 viral messenger RNA (mRNA) from 14high-risk HPV types (16,18,31,33,35,39,45,51,52,56,58,59,66,68).Cervical sources are required for HPV testing.If a vaginal source from a patient who has had atotal hysterectomy with removal of cervix wassubmitted, please contact the testing laboratoryfor alternative testing options.For additional information, please refer [email or web address]/faq/[email or web address](This link if provided for information/educational purposes only.)THIS TEST WAS PERFORMED AT:[facility] [place] [id number] HOLBROOK MD HPV mRNA E6/E7 TNP [facility] HPV 16 RNA TNP [facility] HPV 18/45 RNA TNP [facility] 04/01/2023 04/02/2023 10: 15 AM EDT us Rylee Adam CNM LAB CYTOLOGY ORDERABLES F inal Result [facility] [address] [place] [address] [phone] * Pap Smear (04/01/2023 12:00 AM EDT) 04/01/2023 04/02/2023 10: 15 AM EDT Narrative [facility] - 04/24/2023 4:11 PM EDT ----- ------- Name: Gina Pate ? Age/Sex: 67/F ? : 1955 Unit#: [id number] ?? Attend Dr: RYLEE ADAM CNM ?Re04/01/23 ?Status: DEP REF ? Location: HO.HHCLNP ? Disch: ? ----- ------- SPEC : [id number] ?RECD: 04/02/23-5 ? STATUS: ??SOUT ? REQ NUM: [id number] ? KEE: 04/01/23-0000 ? SUBM DR: RYLEE ADAM CNPeter ? ENTERED: ??04/05/23-1315 ?SP TYPE: Pap Smr ?OTHR : ? [...] 66, 68) ? HPV testing performed by [facility], [place], [place]. ??See reference laboratory ?? portion of the EMR for entire report. ?Clinical Information LMP:Menopausal Previous PAP test:2017, ASCUS Other history:SAMI I ? Material Received ?? ThinPrep-Cervical ----- ------- Signed (signature on file) Ranjana Patel 04/24/231 ? ----- ------- ? END OF REPORT ? us Rylee Adam [facility] CYTOLOGY ORDERABLES F inal Result Performing Organization Address [facility]/State/[facility] Co de Phone Number [facility] [address] [place] [address] [phone] from Last 3 Months or Most Recently Relevant to Health Maintenance Insurance [facility] [employer] (HMO D-SNP) D[facility]AL [facility] Care Teams C 40A Crew Chief Relationship Specialty Start Date End Date Cecy Pabon FNP [address] [place] [phone] PCP - General Family Medicine 09/10/22
--- OUTSIDE RECORDS SUMMARY | 2024-12-25 17:00 | XMS_ITS | Encounter Summary ---
Author Organization [employer] Address [address] [place] [address] Care Team Providers Care Sld Educational Aide Name Role Phone Cecy Pabon CALCULATING MACHINE OPERATOR Primary Care Provider [phone] Encounter Details Date Type Department Care Team (Latest Contact Info) Description 12/25/2024 Travel Social History Tobacco Use Types Packs/Day [...] Description 04/02/2025 11:15 AM EDT Office Visit [facility] [address] [place] [address] Cecy Pabon FNP [address] [place] [address] documented as of this encounter Visit Diagnoses Not on filedocumented in this encounter Additional Health Concerns Assessment Noted Time PHQ-9 Depression Total Score: 15 024 9:58 AM EST documented as of this encounter Care Teams Sld Educational Aide Relationship Specialty Start Date End Date Cecy Pabon FNP [address] [place] [address] PCP - General Family Medicine 09/10/22 documented as of this encounter
[2024-12-26 10:03] LABS: Adenovirus PCR Not Detected (Not Detect.); Bordetella parapertussis PCR Not Detected (Not Detect.); Bordetella pertussis PCR Not Detected (Not Detect.); Chlamydia pneumoniae PCR Not Detected (Not Detect.); Coronavirus 229E PCR Not Detected (Not Detect.); Coronavirus HKU1 PCR Not Detected (Not Detect.); Coronavirus NL63 PCR Not Detected (Not Detect.); Coronavirus OC43 PCR Not Detected (Not Detect.); Human metapneumovirus PCR Not Detected (Not Detect.); Influenza A PCR Not Detected (Not Detect.); Influenza B PCR Not Detected (Not Detect.); Mycoplasma pneumoniae PCR Not Detected (Not Detect.); Parainfluenza 1 PCR Not Detected (Not Detect.); Parainfluenza 2 PCR Not Detected (Not Detect.); Parainfluenza 3 PCR Not Detected (Not Detect.); Parainfluenza 4 PCR Not Detected (Not Detect.); RSV PCR Not Detected (Not Detect.); Rhino/Enterovirus PCR Detected (Not Detect.)
[2024-12-26 10:33] LABS: SARS-CoV-2 PCR Not Detected (Not Detect.)
[2024-12-26 10:34] LABS: Influenza A H1 PCR Not Detected (Not Detect.); Influenza A H1-2009 PCR Not Detected (Not Detect.); Influenza A H3 PCR Not Detected (Not Detect.)
== END 2024-12-25 14:12 | disposition home or self-care (01) ==
LOC: HO.CHCLNP 14:11
PROVIDERS: Visit Provider Registered Nurse
DX: R09.81 Nasal congestion (principal)
CPT/HCPCS: 87633

== ENCOUNTER 2025-02-27 07:30 | Outpatient (REF) | payer OTHER, SELFPAY ==
--- OUTSIDE RECORDS SUMMARY | 2025-02-27 07:32 | XMS_ITS | Encounter Summary ---
Author Organization [facility] [facility] Address [address] [facility] [address] [place] [address] Care Team Providers Care Booking Clerk Name Role Phone Cecy Pabon Primary Care Provider [phone] Encounter Details Date Type Department [facility] ([facility] Description 09/10/2022 Telephone [facility] [address] [place], [place] [phone] Jordan Montesinos MD Social History Tobacco Use [...] Upcoming Encounters Date Type Department Care Team ([facility] Contact [facility] Description 04/02/2025 11:15 AM EDT Office Visit [facility] [address] [place], [place] [phone] Cecy Pabon FNP [address] [place], [place] [phone] 04/03/2025 9:00 AM EDT Office Visit [facility] [address] [place], [place] [phone] Francoise Arteaga CNM [address] [place] [address] documented as of this encounter Visit Diagnoses Not on filedocumented in this encounter Care Teams Booking Clerk Relationship Specialty Start Date End Date Cecy Pabon FNP [address] [place] [address] PCP - General Family Medicine 09/10/22 documented as of this encounter
== END 2025-02-27 07:31 | disposition home or self-care (01) ==
LOC: HO.MAMMO 07:30
PROVIDERS: PCP Registered Nurse; Visit Provider Registered Nurse
DX: Z12.31 Encounter for screening mammogram for malignant neoplasm of breast (principal)
CPT/HCPCS: 77063; 77067

== ENCOUNTER → 2025-02-27 08:00 | Outpatient (BNV) | payer OTHER, SELFPAY | PROVIDERS: PCP Registered Nurse; Visit Provider Internal Medicine | DX: Z12.31 Encounter for screening mammogram for malignant neoplasm of breast (principal) | CPT/HCPCS: 77063; 77067 ==

== ENCOUNTER 2025-04-02 13:20 | Outpatient (REF) | payer OTHER, SELFPAY ==
--- OUTSIDE RECORDS SUMMARY | 2025-04-02 13:37 | XMS_ITS | Encounter Summary ---
Author Organization [employer] [facility] Address [address] [facility] [facility] 7t [place] [address] Care Team Providers Care Laundry Sorter Name Role Phone Cecy Pabon Primary Care Provider [phone] Encounter Details Date Type Department Care Team ([facility] Contact Info) Description 09/10/2022 Telephone [facility] [address] [place], [place] [phone] Jordan Montesinos MD Social History Tobacco Use [...] Upcoming Encounters Date Type Department Care Team ([facility] Contact Info) Description 04/03/2025 9:00 AM EDT Office Visit [facility] [address] [place], [place] [phone] Francoise Arteaga CNM [address] [place], [place] [phone] documented as of this encounter Visit Diagnoses Not on filedocumented in this encounter Care Teams Laundry Sorter Relationship Specialty Start Date End Date Cecy Pabon FNP [address] [place] [address] PCP - General Family Medicine 09/10/22 documented as of this encounter
[2025-04-02 14:35] LABS: Alanine Aminotransferase 30 U/L (0-31); Albumin Level 5.2 g/dL (3.5-5.0); Alkaline Phosphatase 67 U/L (39-117); Aspartate Amino Transferase 24 U/L (5-31); Total Protein 7.7 g/dL (6.5-8.0)
[2025-04-02 14:36] LABS: Hemoglobin A1C 137.8745 umol/L; Total Hemoglobin (HGBA1C) 3517.6697 umol/L
== END 2025-04-02 13:21 | disposition home or self-care (01) ==
LOC: HO.CHCLDS 13:20
PROVIDERS: Visit Provider Registered Nurse
DX: R74.01 Elevation of levels of liver transaminase levels (principal); R73.03 Prediabetes
CPT/HCPCS: 36415; 80076; 83036

== ENCOUNTER 2025-04-20 11:20 | Outpatient (AMB) | payer OTHER, SELFPAY ==
--- OUTSIDE RECORDS SUMMARY | 2025-04-20 11:24 | XMS_ITS | Encounter Summary ---
Author Organization [employer] [facility] Address [address] [facility] 7t [place] [address] Care Team Providers Care Movement Education Specialist Name Role Phone Cecy Pabon Primary Care Provider [phone] Encounter Details Date Type Department [facility] Team ([facility] Contact Info) Description 09/10/2022 Telephone [facility] [address] [place], [place] [phone] Jordan Montesinos MD Social History Tobacco Use [...] as of this encounter Plan of Treatment Not on file documented as of this encounter Visit Diagnoses Not on filedocumented in this encounter Care Teams Movement Education Specialist Relationship Specialty Start Date End Date Cecy Pabon FNP [address] [place] [address] PCP - General Family Medicine 09/10/22 documented as of this encounter
--- NOTE | 2025-04-20 11:55 | MHC.OFFVIS ---
Vital Signs 04/20/25 11:56 Height 5 ft 3 in Weight 125 lb BMI 22.1 BP 142/70 H Blood Pressure Location Lt brachial Position Sitting Respiration 16 Pulse 97 Pulse Source Pulse Oximeter Pulse Oximetry (%) 98 Oxygen Delivery Method Room Air Intake Visit Reasons: SPONDYLOLISTHESIS OF LUMBAR REGION Tier Lift Truck Operator Required: Yes Tier Lift Truck Operator Services: Tier Lift Truck Operator Present Tier Lift Truck Operator Name: [id number] Maurice Allergies doxycycline Allergy (Verified 04/20/25 11:57) Rash tizanidine (From Zanaflex) Allergy (Verified 04/20/25 11:57) Nausea Medication List - Last Reconciled 04/20/25 by Lanette eMnjivar LPN ibuprofen 600 mg PO Q8H PRN rosuvastatin 10 mg PO BEDTIME HPI HPI SPONDYLOLISTHESIS OF LUMBAR REGION: Details: History of Present Illness The patient is a 69-year-old female presenting with chronic neck and shoulder pain. The pain is constant, located on the right side, and interferes with her sleep and daily activities. She has been using ibuprofen and acetaminophen without significant relief. She has previously tried physical therapy but discontinued it due to increased pain and lack of benefit. An MRI was done many years ago in the past, but a repeat is needed to evaluate current symptoms. The patient also reports numbness in both hands and a single episode of loss of balance, raising concerns for cervical radiculopathy. Pain Description - Onset: Chronic - Quality: Constant - Location: Right shoulder and neck - Interference: Sleep and daily activities - Medications tried: Ibuprofen, acetaminophen Physical Exam - Appears afebrile. - Alert and oriented. - Mood and affect appropriate. - Follows and participates in conversation appropriately. - Respiratory effort is unlabored. - Able to transition from sit to stand unassisted. Pain Management - Affect: Pain interferes with sleep and daily activities - Analgesia: Using ibuprofen and acetaminophen without significant relief - Activities of Daily Living: Pain impacts normal function and self-care [facility] Medical History (Updated 04/20/25 @ 12:09 by Joe Zepeda MD) Cervical arthritis Prediabetes Transaminitis Spondylolisthesis, lumbar region Herniated disc Tachycardia Social History Alcohol intake: never Patient Tobacco Use Status: Never used Tobacco Physical Exam Vital Signs: Last Vital Signs Pulse 97 04/20/25 11:56 Resp 16 04/20/25 11:56 BP 142/70 H 04/20/25 11:56 Pulse Ox 98 04/20/25 11:56 Oxygen Delivery Method Room Air 04/20/25 11:56 BMI result Body Mass Index 22.1 Assessment & Plan Assessment & Plan (1) Cervical radiculopathy: Code(s): M54.12 - Radiculopathy, cervical region Category: Medical Plan Plan - Schedule a cervical spine MRI to assess for cervical radiculopathy and current symptoms. - Evaluate the need for an epidural steroid injection or neurosurgical referral based on MRI results. - Plan a follow-up visit to review MRI findings and discuss further treatment options. Patient was informed and verbally consented to the use of an ambient scribe for clinic note documentation during this visit. Discussion Notes I discussed with the patient the need for a cervical spine MRI to evaluate her symptoms of numbness and balance issues, which may indicate cervical radiculopathy. We talked about the potential for an epidural steroid injection or neurosurgical decompression depending on the MRI results. I advised her to schedule a follow-up appointment after the MRI to review the findings and determine the next steps in her treatment plan. Patient Instructions - Schedule a cervical spine MRI as discussed. - Contact the office to arrange a follow-up appointment after the MRI is completed. - Monitor for any changes in symptoms and report them during the follow-up visit. Orders: Orders MR cervical spine wo con 04/20/25 M54.12 - Radiculopathy, cervical region Coding Level of Care Code New Pt Level 4 (80969) Diagnoses Cervical radiculopathy M54.12
[2025-04-20 11:56] VITALS: BP 142/70; PULSE 97; RESP 16; O2SAT 98; BMI 22.1
== END 2025-04-20 12:12 | disposition home or self-care (01) ==
LOC: HO.PMC 11:20
PROVIDERS: PCP Registered Nurse; Referring Provider Registered Nurse; Visit Provider Internal Medicine
DX: M54.12 Radiculopathy, cervical region (principal)
CPT/HCPCS: 99204

== ENCOUNTER → 2025-04-20 11:20 | Outpatient (BNVA) | payer OTHER, SELFPAY | PROVIDERS: PCP Registered Nurse; Referring Provider Registered Nurse; Visit Provider Internal Medicine | DX: M54.12 Radiculopathy, cervical region (principal); M25.511 Pain in right shoulder; R20.2 Paresthesia of skin; M54.2 Cervicalgia | CPT/HCPCS: 99202 ==

== ENCOUNTER 2025-05-07 09:35 | Outpatient (REF) | payer OTHER, SELFPAY ==
--- NOTE | ~2025-05-07 | MM_ITS ---
EXAMINATION: DXA BONE DENSITY AXIAL HISTORY: last BMD 03/2023, osteopenia TECHNIQUE: [employer] Dual energy absorptiometry (DEXA) of the lumbar spine, total left hip, and femoral neck was performed. COMPARISON: Comparison is made with the prior examination dated 04/08/2023. FINDINGS: The bone mineral density of the lumbar spine is 1.065 g/cm2, corresponding to a T-score of -1.0, and a Z-score of 0.6. This is indicative of normal bone mineral density. This represents a BMD change of -0.7% compared to the prior exam. This is not statistically significant. The bone mineral density of the left total hip is 1.021 g/cm2, corresponding to a T-score of 0.1, and a Z-score of 1.5. This is indicative of normal bone mineral density. This represents a BMD change of -1.3% compared to the prior exam. This is not statistically significant. The bone mineral density of the left femoral neck is 0.965 g/cm2, corresponding to a T-score of -0.5, and a Z-score of 1.1. This is indicative of normal bone mineral density. This represents a BMD change of 0.1% compared to the prior exam. MM/XR DEXA axial skeleton IMPRESSION: Based on bone mineral density, and according to World Health Organization (WHO) criteria, the diagnosis is consistent with normal bone mineral density. Statistically, 68% of repeat scans fall within 1 SD (+/- 0.010 g/cm2 for AP spine L1-L4) and 1 SD (+/- 0.012 g/cm2 for femur total) [employer] is a trademark of the [employer]'s [employer] Metabolic [employer] Disease, a World Health Organization (WHO) Collaborating Center. Electronically signed by: Eric Mathew MD 05/07/2025 11:01 AM EDT
--- OUTSIDE RECORDS SUMMARY | 2025-05-07 10:58 | XMS_ITS | Encounter Summary ---
Author Organization [employer] Address [address] 7[address] [place] [address] Care Team Providers Care Line Installation Supervisor Name Role Phone Cecy Pabon Primary Care Provider [phone] Reason for Visit * Reason Onset Date Comments Nurse Triage 12/14/2023 Encounter Details Date Type Department Care Team ([facility] Contact Info) Description 12/14/2023 Telephone [facility] [address] [place] [address] Cecy Pabon FNP [address] [place], [place] [phone] Nurse Triage Social History Tobacco Use Types [...] EDT Please assist with obtaining and scanning [facility] ED notes for provider to reivew prior to telehealth visit tomorrow. Future Appointments Date Time Provider Department Center 12/15/2023 9:30 AM Dinesh Gamino MD [facility] 01/21/2024 9:00 AM Margaret De La Rosa [facility] * Telephone Encounter - Samira Izquierdo RN - 12/14/2023 2:40 PM EDT Call to Gina Matute, spoke with nico Wheeler who is on HIPAA. Reports pt went into ER due toright sided rib pain. Pt found to have a nodule on rib. Per [facility] ED notes pt discharged home stable.Pt CXR [...] Center 12/15/2023 9:30 AM Dinesh Gamino MD [facility] 01/21/2024 9:00 AM Margaret De La Rosa, OD [facility] Video visit offered and caller accepted Positive Triage Question: * Patient wants to be seen * All higher-acuity triage questions were negative Care Advice Discussed: * Continue Treatment * Reasons To Call Back - You become worse * Telephone Encounter - Jadiel Torre - 12/14/2023 1:53 PM EDT Patient calling to report ED visit on : Date: 12/13/23 Hospital: [facility] Seen for: Chest Pain Pt stated [...] documented as of this encounter Care Teams Line Installation Supervisor Relationship Specialty Start Date End Date Cecy Pabon FNP [address] [place] [address] PCP - General Family Medicine 09/10/22 documented as of this encounter
--- OUTSIDE RECORDS SUMMARY | 2025-05-07 10:58 | XMS_ITS | Encounter Summary ---
Author Organization [employer] [facility] Address [address] [facility] [address]t [place] [address] Care Team Providers Care Licensed Physical Therapist Assistant Name Role Phone Cecy Pabon Primary Care Provider [phone] Encounter Details Date Type Department Care Team ([facility] [address] Contact Info) Description 09/10/[address] [facility] [address] [place], [place] [phone] Jordan Montesinos MD Social History Tobacco Use [...] on filedocumented in this encounter Care Teams Licensed Physical Therapist Assistant Relationship Specialty Start Date End Date Cecy Pabon FNP [address] [place] [address] PCP - General Family Medicine 09/10/22 documented as of this encounter
--- OUTSIDE RECORDS SUMMARY | 2025-05-07 10:58 | XMS_ITS | Clinical Summary ---
Author Organization [employer] Address [address] [place] [address] 7[address] [place] [address] Care Team Providers Care Ventilation Equipment Tender Name Role Phone Cecy Pabon CYLINDER FILLER Primary Care Provider [phone] Allergies Active Allergy Reactions Criticality Noted Date [...] Active Problems Problem Noted Date Diagnosed Date Prediabetes 12/28/2024 Overview (04/02/2025): Lab Results Component Value Date HGBA1C 5.9 12/14/2024 Assessment & Plan (04/02/2025 12:42 PM EDT): - Encouraged continued lifestyle interventions. Repeat labs Assessment & Plan (12/28/2024 11:32 AM EDT): - Reviewed lifestyle interventions. Reports she has been eating a lot of sweets recently and will plan to cut down. Repeat labs in ~6 months Transaminitis 12/28/2024 Overview (04/02/2025): Lab Results Component Value Date AST 27 12/14/2024 ALT 43 (H) 12/14/2024 TOTPROTEIN 7.3 12/14/2024 ALB 4.7 12/14/2024 ALP 76 12/14/2024 TOTALBILIRUB 1.0 12/14/2024 Assessment & Plan (04/02/2025 12:42 PM EDT): - lifestyle interventions reviewed, repeat labs Assessment & Plan (12/28/2024 11:33 AM EDT): - Plan for initial focus on nutrition, lifestyle interventions reviewed Carpal tunnel syndrome of right wrist 12/28/2024 Overview (12/28/2024): EMG October 2024: [id number] right median neuropathy across carpal tunnel. Assessment & Plan (12/28/2024 11:41 AM EDT): - Continues with wrist splint at night - Will let us know if interested in referral to Ortho - hand specialist in future Lateral epicondylitis of left elbow 09/19/2024 PMB (postmenopausal bleeding) 08/04/2024 Overview (08/04/2024): Evaluated by [facility] [employer] in Apr - May 2024 EMB Apr 2024 completed: Superficial strips of endometrium within normal limits. Few strips of endocervical epithelium within normal limits. No atypia identified Assessment & Plan (08/04/2024 11:16 AM EST): Has not had any further PMB , plan to follow up for routine care PRN Abnormal CT scan of lung 01/04/2024 Assessment & Plan (12/28/2024 11:29 AM EDT): Pertinent hx: tuberculosis infx s/p tx approx 40 years ago, hx of smoking cigarettes w/ quit date approx 40 years ago November 2023: [facility] CXR with question of 7mm nodule right lung 12/25/23: CT Chest w/o contrast at [facility], nonspecific findings of irregular areas of nodular density within the right lung apex and anteriorly within the right middle lobe and peripherally long left major fissure 01/04/24: Referral to [facility] Pulmonology for further evaluation and management Following with [facility] Pul - next appt scheduled October 2024 06/09/24: [facility] Pul - Dr. Josee Bass. last visit in February 2024. She was advised to repeat CT chest imaging for further eval of nonspecific nodular densities seen on prior imaging. Plan to repeat CT chest in 6 months. If opacities stable and/or improved, advised patient no further f.up needed. Assessment & Plan (08/04/2024 11:23 AM EST): Pertinent hx: tuberculosis infx s/p tx approx 40 years ago, hx of smoking cigarettes w/ quit date approx 40 years ago November 2023: [facility] CXR with question of 7mm nodule right lung 12/25/23: CT Chest w/o contrast at [facility], nonspecific findings of irregular areas of nodular density within the right lung apex and anteriorly within the right middle lobe and peripherally long left major fissure 01/04/24: Referral to [facility] Pulmonology for further evaluation and management Following with [facility] Pul - next appt scheduled October 2024 Assessment & Plan (01/04/2024 8:19 AM EDT): Pertinent hx: tuberculosis infx s/p tx approx 40 years ago, hx of smoking cigarettes w/ quit date approx 40 years ago November 2023: [facility] CXR with question of 7mm nodule right lung 12/25/23: CT Chest w/o contrast at [facility], nonspecific findings of irregular areas of nodular density within the right lung apex and anteriorly within the right middle lobe and peripherally long left major fissure 01/04/24: Referral to [facility] Pulmonology for further evaluation and management Osteopenia after menopause 10/21/2023 Vitamin D insufficiency 03/14/2023 Assessment & Plan (08/04/2024 11:22 AM EST): May 2023: Vit D 31 ng/mL Continues with Vit D 1000 units daily Assessment & Plan (03/14/2023 7:29 PM EDT): October 2020: Vit D 23 ng/mL, due for repeat lab Continues with Vit D 1000 units daily Seasonal allergies 03/14/2023 Overview (03/14/2023): Continue cetirizine PRN Healthcare maintenance 03/14/2023 Overview (04/02/2025): Mammo: BIRADS 1 on 02/27/25 Cervical CA: 04/01/23 NILM HPV neg [facility] CNM. Previous 07/07/2017 - Pap ASCUS, HPV neg. Due for co-testing Mar 2026. Colon CA: 03/04/2021: Colonoscopy by Dr. Fox (records requested 08/04/24) Optometry: [facility] 12/17/21 Dental: established with dental home [facility] Dental BMD: osteopenia Mar 2023 Last [...] Per consult note: CT brain WO at [facility] in Jun 2020: [place] MRI brain WO at [facility] in November 2020: [place] Assessment & Plan (03/11/2023 6:31 AM EDT): Followed by Dr. Liz - [facility] Continues with sumatriptan PRN migraines Per consult note: CT brain WO at [facility] in Jun 2020: [place] MRI brain WO at [facility] in November 2020: [place] Dysplastic nevus of trunk 02/03/2023 Cervical arthritis 01/25/2019 Overview (10/28/2024): On her C-spine MRI [facility] July 05, 2019 she had spondylosis at C4-5, C5-6, C6-7 with neuroforaminal narrowing most significant on the left at C4-5, left C5-6. Assessment & Plan (04/02/2025 12:44 PM EDT): Referral to [facility] pain management placed 04/02/2025 Decreased lung capacity 04/08/2018 Cobalamin deficiency 03/24/2018 Assessment & Plan (06/26/2023 8:31 AM EDT): History of B12 deficiency, pt not currently on supplementation Labs: Vit B12 ordered today Regular astigmatism [...] facet arthropathy at L4-L5 bilaterally with stable fxnt-cx-rhtjgkyl spinal canal stenosis Development of small shallow left subarticular disc protrusion at L2-L3, shallow central to right paramedian disc protrusion at L1-L2 and shallow right subarticular disc protrusion at T12-L1 without neural impingement or spinal stenosis at these levels since the previous exam Assessment & Plan (04/02/2025 12:43 PM EDT): Tapered off Percocet in 2022 Continues with tizanidine PRN for muscle spasms Encouraged use of topical options and heating pads PRN Declines interest in physical therapy In agreement with referral to [facility] Pain Management - referral placed 04/02/25 Follow up precautions Assessment & Plan (08/04/2024 11:21 AM EST): [...] Assessment & Plan (02/07/2023 10:03 PM EDT): Continues with OTC analgesics, using Percocet 5-325mg as needed for severe pain. Will continue with current prescription of BID PRN Informed patient that especially with chronic back pain, our goal to improve daily function and quality of life, but that it is unlikely the back pain is going to completely resolve. The approach to care is going to be multi-modal, and patient expressed awareness that it will take time. Partial thickness tear of right rotator cuff Overview (06/26/2023): Right shoulder MRI October 2020 performed at [facility] demonstrated a high-grade partial thickness bursal sided [...] arthroscopic hardware removal by Dr. Lentz at [facility] Assessment & Plan (10/28/2024 2:57 PM EST): Continued pain in right shoulder s/p repeat surgery Completed rehab/PT Completed percocet taper, continues on topical analgesics and flexeril nightly PRN for pain control Referral to reestablish with [facility]-Dr. Lentz placed on 10/27/2024 Assessment & Plan [...] Assessment & Plan (06/26/2023 8:24 AM EDT): Continued pain in right shoulder s/p repeat surgery Continues with rehab/PT Pt had stopped receiving percocet over the past few months, and plan to formally DC from med list as she has been coping well with flexeril nightly PRN for pain control Encouraged to follow up if pain becomes debilitating or impacts ability to function in ADLs/iADLS Assessment & Plan (02/07/2023 10:05 PM EDT): Continue following with Ortho and Physical therapy Use Percocet sparingly. Reviewed med indication, safety, [...] Assessment & Plan (03/14/2023 7:25 PM EDT): Previously prescribed enalapril. Currently controlled with lifestyle interventions (no pharmacotherapy) BP elevated in office, encouraged to check home readings and call office for 2+ readings >140/90 mmHg at home for consideration of addition of medication Chronic constipation 08/30/1959 Overview (03/14/2023): Continue Colace 100mg BID PRN Assessment & [...] Encounters Date Type Department Care Team Description 04/09/2025 Results Follow-Up [facility] [address] [place] [address] Cecy Pabon FNP Hemoglobin A1c, Hepatic Function Panel 04/03/2025 9:00 AM EDT Office Visit [facility] [address] [place] [address] Rylee Adam CNM Menopausal and postmenopausal disorder (Primary Dx) 04/03/2025 Travel 04/02/2025 11:15 AM EDT Office Visit [facility] [address] [place] [address] Cecy Pabon FNP Spondylolisthesis of lumbar region (Primary Dx); Transaminitis; Prediabetes; Healthcare maintenance; Cervical arthritis 04/02/2025 Telephone [facility] [address] [place] [address] Cecy Pabon FNP Chart Prep 04/02/2025 Travel 02/27/2025 Orders Only [facility] [address] [place] [address] Cecy Pabon FNP from Last 3 Months Immunizations Immunization Administration Dates Next Due Influenza injectable quadriv [...] oz) 04/03/2025 8:59 A M EDT Height 167.6 cm (5' 6 ) 04/02/2025 11:02 AM EDT Body Mass Index 20.6 04/02/2025 11:02 AM EDT Plan of Treatment Health Maintenance Due Date Last Done Comments CT Colonography 1955 Colonoscopy 1955 Colorectal Cancer Screening 1955 Dental Prophylaxis 1955 Dental X-Ray: Bitewings 1955 Dental X-Ray: Full Mouth 1955 FIT DNA/Cologuard 1955 FIT 1955 FOBT 1955 Sigmoidoscopy 1955 Dental Oral Exam 02/11/2023 08/12/2022 COVID-19 Vaccine ( season) 2025 03/11/2023, 10/07/2021, 01/08/2021, Additional history exists Influenza Vaccine (#1) 2025 , 06/19/2020, 06/09/2019, Additional history exists SDOH Screening 08/04/2025 08/04/2024 Alcohol/Substance Use Screening 12/25/2025 12/25/2024 Mammogram 02/27/2026 02/27/2025, 01/29, 02/16/2023, Additional history exists HPV/Cotest 04/01/2026 04/01/2023, 07/07/2017 Pap Smear 04/01/2026 04/01/2023 Depression Screening 04/02/2026 04/02/2025, 04/02/20 25 Diabetes: Hemoglobin A1C 04/02/2026 025, 12/14/2024, 06/25/2023 Tobacco Screening 04/03/2026 04/03/2025 Lipid Panel 12/14/2029 12/14/2024, 10/01, 06/25/2023, Additional history exists RSV Patients and Patients Aged 60 years or older (1 - 1-dose 75+ series) 11/24/2030 DTaP/Tdap/Td Vaccines (3 - Td or Tdap) 03/11/2033 03/11/2023, 01/19/2011 Zoster Vaccines Completed 02/27/2022, 04/2 12/2021, 08/26/2017 Pneumococcal Vaccine: 50+ Years Completed 03/11/2023 [...] patient's age to complete this topic Meningococcal B Vaccine Aged Out No l onger eligible based on patient's age to complete [...] Procedure Name Priority Date/Time Associated Diagnosis Comments HEPATIC FUNCTION PANEL Routine 1:21 PM EDT Transaminitis HEMOGLOBIN A1C Routine 04/02/2025 1:21 PM EDT Prediabetes BI MAMMOGRAM SCREENING TOMOSYNTHESIS BILATERAL Routine 02/27/2025 7:35 AM EDT HEPATITIS C VIRAL RNA, QUANTITATIVE, REAL-TIME PCR Routine 12/14/2024 8:36 AM EDT Healthcare maintenance LIPID PANEL, STANDARD Routine 12/14/2024 8:36 AM EDT Healthcare maintenance HPV MRNA E6/E7 REFLEX TO HPV 16, 18/45 Routine 04/01/2023 12:00 AM EDT PAP SMEAR Routine 04/01/2023 12:00 AM EDT COMPREHENSIVE ORAL EVALUATION - NEW OR ESTABLISHED PATIENT Routine 08/12/2022 10:00 AM EST from Last 3 Months or Most Recently Relevant to Health Maintenance Results * Hemoglobin A1c (04/02/2025 1:21 PM EDT) Hemoglobin A1c 5.7 <6.0 % [facility] Comment:Hemoglobin A1C Refer ence Range Adults: 4.8 - 6.0 % Non diabetic: < 6.0 % Goal: < 7.0 %Additional Action Suggested: > 8.0 %Note: Hemoglobin A1c results are invalid for patients with abnormal amounts of HbF. Blood transfusions may impact the HbA1c concentration in the patient sample. Estimated Average Glucose 117 mg/dL [facility] Comment:eAG = Estimated ave rage glucose which is %A1C expressed asaverage glucose, using the formula of the Y8T-OwiierkMuxwobx Glucose study (ADAG), Diabetes Care, Vol.31,#8,Mar. 2007 Blood Venous blood specimen / Unknown 04/02/2025 1:21 PM EDT 04/02/2025 1:54 PM EDT us Cecy Pabon [facility] BLOOD ORDERABLES Final Res ult [facility] [address] [place] [phone] * (ABNORMAL) Hepatic Function Panel (04/02/2025 1:21 PM EDT) Bilirubin, Total 0.7 0.0 - 1.0 mg/dL [facility] Bilirubin, Direct 0.2 0.0 - 0.5 mg/dL [facility] Aspartate Amino Transferase 24 5 - 31 U/L [facility] Alanine Aminotransferase 30 0 - 31 U/L [facility] Total Protein 7.7 6.5 - 8.0 g/dL [facility] Albumin Level 5.2(H) 3.5 - 5.0 g/dL [facility] Alkaline Phosphatase 67 39 - 117 U/L [facility] Blood Venous blood specimen / Unknown 04/02/2025 1:21 PM EDT 04/02/2025 1:54 PM EDT us Cecy Pabon CYLINDER FILLER LAB BLOOD ORDERABLES Final Res ult [facility] [address] [place] [phone] * BI Mammogram Screening Tomosynthesis Bilateral (02/27/2025 7:35 AM EDT) Anatomical Region Laterality Modality Breast Bilateral Mammography 02/27/2025 7:35 AM EDT Narrative 03/11/2025 8:45 PM EDT [facility] [address] [place] [address] Mammography Report Signed Patient: Gina Pate MR#: [id number] : 1955 Acct:[id number] Age/Sex: 69 / F ADM Date: 02/27/25 Loc: HO.MAMMO Attending Dr: Cecy Pabon CYLINDER FILLER Ordering Physician: Cecy Pabon Results: 1Negat nupur Date of Service: 02/27/25 Follow Up: 1 Year From [facility] Mammogram Procedure(s): MM tomosynthesis screening BI Accession Number(s): [id number] cc: Cecy Pabon EXAMINATION: MM SCREENING DIGITAL BREAST TOMOSYNTHESIS, BILATERAL CLINICAL INFORMATION: Screening. Asymptomatic. COMPARISON: Mammography: Comparison is made with available priors TECHNIQUE: Digital breast mammography with tomosynthesis is performed in both the craniocaudal and mediolateral oblique views along with computer-aided detection (CAD). FINDINGS: There are scattered areas of fibroglandular [...] target due date for their next mammogram. Electronically signed by: Miesha Chowdary DO 03/11/2025 08:42 PM EDT RP Dictated By: Miesha Chowdary DO Signed By: <Electronically signed by Miesha Chowdary DO in OV> 03/11/252041 DD/ 4 TD/TT: 02/27/2549 Lot Associate: Procedure Note Donotuseinterpreter, Image - [facility] [address] [place] [address] Mammography Report Signed Patient: Sam Pate#: [id number] : 1955cct:[id number] Age/Sex: 69 / FADM Date: 02/27/25 Loc: HO.MAMMO Attending Dr: Cecy Pabon CYLINDER FILLER Ordering Physician: Cecy PabonPResults: 1Negat nupur Date of Service: 02/27/25Follow Up: 1 Year From [facility] Mammogram Procedure(s): MM tomosynthesis screening BI Accession Number(s): [id number] cc: Cecy Pabon EXAMINATION: MM SCREENING DIGITAL BREAST TOMOSYNTHESIS, BILATERAL CLINICAL INFORMATION: Screening. Asymptomatic. COMPARISON: Mammography: Comparison is made with available priors TECHNIQUE: Digital breast mammography with tomosynthesis is performed in both the craniocaudal and mediolateral oblique views along with computer-aided detection (CAD). FINDINGS: There are scattered areas of fibroglandular [...] target due date for their next mammogram. Electronically signed by: Miesha Chowdary DO 03/11/2025 08:42 PM EDT RP Dictated By: Miesha Chowdary DO Signed By: <Electronically signed by Miesha Chowdary DO in OV> 03/11/252041 DD/ 0735 TD/TT: 02/27/25 0749 Lot Associate: Cecy CRAFTP IMG BI PROCEDURES Edited Resul t - Final * Hepatitis C Viral RNA, Quantitative, Real-Time PCR (12/14/2024 8:36 AM EDT) Hepatitis C Viral Load <15 NOT DETECTED NOT DETECTED IU/mL [facility] HCV Log PCR <1.18 NOT DETECTED NOT DETECTED Log IU/mL [facility] Comment:For additional infor mation, please refer tohttp://education.EMKinetics/faq/RLP09c9(This link is being provided for informational/educational purposes only.)THIS TEST WAS PERFORMED AT:[employer] [place] [id number] HOLBROOK MD Blood 12/14/2024 8:36 AM EDT 12/14/2024 2:13 PM EDT Cecy SINGH LAB BLOOD ORDERABLES Final Res ult [facility] [address] [place] [phone] * (ABNORMAL) Lipid Panel, Standard (12/14/2024 8:36 AM EDT) Triglycerides 157(H) <150 mg/dL [facility] Comment:Desirable Triglyceri de: less than 150 mg/dLBorderline High Triglyceride 150-199 mg/dLHigh Triglyceride: 200-499 mg/dLVery High Triglyceride: greater than or equal to 5OO mg/dL Cholesterol 177 <200 mg/dL [facility] Comment:Desirable Cholestero l: less than 200 mg/dLBorderline High Cholesterol: 200-239 mg/dLHigh Cholesterol: greater than 239 mg/dL LDL Cholesterol Calculated 96 <100 mg/dL [facility] Comment:Desirable LDL: less than 100 mg/dLNear Optimal/Above Optimal LDL: 110- 129 mg/dLBorderline High LDL: 130-159 mg/dLHigh LDL: 160-189 mg/dLVery High LDL: greater than or equal to 190 mg/dL HDL Cholesterol 50 >40 mg/dL [facility] Comment:Desirable HDL: great er than 40 mg/dL Note: This HDL assay may give artificially low results in patients with liver disease. Blood Venous blood specimen / Unknown 12/14/2024 8:36 AM EDT 12/14/2024 2:13 PM EDT us Cecy Pabon CYLINDER FILLER LAB BLOOD ORDERABLES Final Res ult [facility] [address] [place] [phone] [phone] * HPV mRNA E6/E7 w/Reflex to HPV Genotypes 16, 18/45 (04/01/2023 12:00 AM EDT) HPV nRNA E6/E7 Not Detected Not Detected [facility] Comment:Methodology: Transcr iption-Mediated AmplificationThis assay detects E6/E7 viral messenger RNA (mRNA) from 14high-risk HPV types (16,18,31,33,35,39,45,51,52,56,58,59,66,68).Cervical sources are required for HPV testing.If a vaginal source from a patient who has had atotal hysterectomy with removal of cervix wassubmitted, please contact the testing laboratoryfor alternative testing options.For additional information, please refer tohttp://education.EMKinetics/faq/JSZ107c7(This link if provided for information/educational purposes only.)THIS TEST WAS PERFORMED AT:[employer] [place] [id number] HOLBROOK MD HPV mRNA E6/E7 TNP [facility] HPV 16 RNA [facility] HPV 18/45 RNA [facility] 04/01/2023 04/02/2023 10: 15 AM EDT Rylee Adam CNM LAB CYTOLOGY ORDERABLES F inal Result [facility] [address] [place] [phone] * Pap Smear (04/01/2023 12:00 AM EDT) 04/01/2023 04/02/2023 10: 15 AM EDT Narrative [facility] - 04/24/2023 4:11 PM EDT ----- ------- Name: Gina Pate Age/Sex: 67/F : 1955 Unit#: [id number] Attend Dr: RYLEE ADAM CNM Re04/01/23 Status: DEP [facility] Disch: ----- ------- SPEC : [id number] RECD: 04/02/23-1015 STATUS: GEO PALOMINO NUM: [id number] KEE: 04/01/23-[address]: RYLEE ADAM CNM ENTERED: 04/05/23-1315 SP TYPE: Pap Smr OT DR: ORDERED: Pap Smear Interpretation Satisfactory for evaluation. Negative for intraepithelial lesion or malignancy. Atrophic. HPV mRNA E6/E7: NOT DETECTED This assay detects E6/E7 viral messenger RNA (mRNA) from 14 high-risk HPV types (16, 18, 31, 33, 35, 39, 45, 51, 52, 56, 58, 59, 66, 68) HPV testing performed by [facility], [place], [place]. See reference laboratory portion of the EMR for entire report. Clinical Information LMP:Menopausal Previous PAP test:2017, ASCUS Other history:SAMI I Material Received ThinPrep-Cervical ----- ------- Signed (signature on file) Ranjana Shae Patel 04/24/23 1611 ----- ------- END OF REPORT Rylee Adam [facility] CYTOLOGY ORDERABLES F inal Result [facility] [address] [place] [address] [phone] from Last 3 Months or Most Recently Relevant to Health Maintenance Insurance [facility] [employer] OPT[employer] (HMO D-SNP) D[facility]AL - [facility] Care Teams Ventilation Equipment Tender Relationship Specialty Start Date End Date Cecy Pabon FNP [address] [place] [address] PCP - General Family Medicine 09/10/22
--- OUTSIDE RECORDS SUMMARY | 2025-05-07 10:58 | XMS_ITS | Encounter Summary ---
Author Organization [employer] Address [address] [place] [address] Care Team Providers Care Hot Saw Operator Name Role Phone Cecy Pabon PIE FILLER Primary Care Provider [phone] Encounter Details Date Type Department Care Team ([facility] Contact Info) Description 06/09/2024 Orders Only [facility] [address] [place], [place] [phone] Provider, MD Jovan Social History Tobacco Use Types Packs/Day Years [...] documented as of this encounter Care Teams Hot Saw Operator Relationship Specialty Start Date End Date Cecy Pabon FNP [address] [place] [address] PCP - General Family Medicine 09/10/22 documented as of this encounter
--- OUTSIDE RECORDS SUMMARY | 2025-05-07 10:58 | XMS_ITS | Encounter Summary ---
Author Organization [employer] Address [address] [place] [address] Care Team Providers Care Combined Rail Operator Name Role Phone Cecy Pabon Primary Care Provider [phone] Reason for Visit * Reason Comments Med Refill Encounter Details Date Type Department Care Team ([facility] st Contact Info) Description 09/17/2022 Refill [facility] [address] [place] [address] Cecy Pabon FNP [address] [place], [place] [phone] Lumbar facet arthropathy Social History Tobacco Use [...] EST Spoke with dtr, pt scheduled for [employer] Tele Renewal appt 11/17/22 @ 11:30am. [employer] renewal forms being mailed with return envelope. * Telephone Encounter - Aga Hairston RN - 09/17/2022 1:20 PM EST Duplicate request, was sent/signed 09/10/22. documented in this encounter Plan of Treatment Not on file documented as of this encounter Visit Diagnoses Diagnosis Lumbar facet arthropathy Spondylosis of unspecified site without mention of myelopathy documented in this encounter Care Teams Combined Rail Operator Relationship Specialty Start Date End Date Cecy Pabon FNP [address] [place] [address] PCP - General Family Medicine 09/10/22 documented as of this encounter
== END 2025-05-07 09:36 | disposition home or self-care (01) ==
LOC: HO.MAMMO 09:35
PROVIDERS: PCP Registered Nurse; Visit Provider Advanced Practice Midwife
DX: Z13.820 Encounter for screening for osteoporosis (principal); Z78.0 Asymptomatic menopausal state
CPT/HCPCS: 77080

== ENCOUNTER → 2025-05-07 10:00 | Outpatient (BNV) | payer OTHER, SELFPAY | PROVIDERS: PCP Registered Nurse; Visit Provider Radiology Diagnostic Radiology | DX: E28.39 Other primary ovarian failure (principal) | CPT/HCPCS: 77080 ==

== ENCOUNTER → 2025-05-12 11:14 | Outpatient (BNV) | payer OTHER, SELFPAY | PROVIDERS: PCP Registered Nurse; Visit Provider Radiology Diagnostic Radiology | DX: M54.12 Radiculopathy, cervical region (principal); M48.02 Spinal stenosis, cervical region | CPT/HCPCS: 72141 ==

== ENCOUNTER 2025-05-12 11:28 | Outpatient (REF) | payer OTHER, SELFPAY ==
--- OUTSIDE RECORDS SUMMARY | 2025-04-03 09:00 | XMS_ITS | Encounter Summary ---
Author Organization [employer] Address [address] [facility] 7t [place] [address] Care Team Providers Care Staff Anesthesiologist Name Role Phone Pepper Cecy FRANCISCO Primary Care Provider [phone] Reason for Referral * Imaging (Routine) - Closed Specialty Diagnoses / Procedures Referred By Phu t Referred To Contact Radiology Diagnoses Menopausal and postmenopausal disorder Procedures BD DEXA Axial Francoise Adam CNM [address] [place] [address] Phone: tel: fax: [address] Phone: tel: fax: Referral ID Status Reason Start Date Expiration Date Visits Re quested Visits Authorized [id number] Closed 04/03/2025 04/03/2026 1 1 Reason for Visit * Reason Comments pelvic Encounter Details Date Type Department Care Team (Latest Contact Info) Description 04/03/2025 9:00 AM EDT Office Visit [facility] [address] [place], [place] [phone] Francoise Adam CNM [address] [place], [place] [phone] Menopausal and postmenopausal disorder (Primary Dx) Social History Tobacco Use Types Packs/Day Years Used Date Smoking Tobacco: Never Passive Smoke Exposure: Never Smokeless Tobacco: Never Tobacco Cessation:Counseling Given: Not Answered Alcohol Use Standard Drinks/Week Comments Never 0 (1 standard drink = 0.6 oz pur e alcohol) Depression Answer Date Recorded Patient Health Questionnaire-9 Score 8 04/02/2025 Patient Health Questionnaire-9 Score 8 04/02/2025 Last PHQ-9: Questionnaire Data Not on file 0 04/02/2025 Housing Stability Answer Date Recorded What is [...] Answer Date Recorded Patient Health Questionnaire-2 Score 2 04/02/2025 Internet Access Answer Date Recorded Internet Access [...] Sign Reading Time Taken Comments Blood Pressure 142/80 04/03/2025 8:59 AM EDT Pulse 81 04/03/2025 8:59 AM EDT Temperature 36.4 C (97.5 F) 04/03/2025 8:59 AM EDT Respiratory Rate 12 04/03/2025 8:59 AM EDT Oxygen Saturation 94% 04/03/2025 8:59 AM EDT Inhaled Oxygen Concentration - - Weight 57.9 kg (127 lb 9.6 oz) 04/03/2025 8:59 A M EDT Height - - Body Mass Index 20.6 04/02/2025 11:02 AM EDT documented in this encounter Progress Notes * Francoise Adam CNM - 04/03/2025 9:00 AM EDT Subjective Patient ID: Gina Matute is a 69 y.o. 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 NIL/HPV neg 03/2023. Pap ASCUS, HPV neg 06/2017. Cotest due 03/2026. Mammogram BIRADS 1, cat b 02/2025. Postmenopausal. No vaginal, urinary or breast symptoms. No vasomotor symptoms. Lives alone, feels safe at home. No personal fracture. Mother with osteoporosis. for years, no new partners. Family lives nearby. 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 Endometrial thickness 4mm. Referred to [facility] [place] [place] 03/2024. Endometrial biopsy negative. Would like to defer pelvic and breast exam. DEXA t-score -1.4 spine 03/2023, FRAX low. Review of Systems Genitourinary: Negative for dyspareunia, dysuria, frequency, genital sores, hematuria, menstrual problem, pelvic pain, urgency, vaginal bleeding, vaginal discharge and vaginal pain. No abnormal pap, no abnormal bleeding, no breast pain, no breast mass, no nipple discharge Objective BP (!) 142/80 (BP Location: Left arm, Patient Position: Sitting, BP Cuff Size: Adult) Pulse 81 Temp 97.5 ??F (36.4 ??C) (Oral) Resp 12 Wt 127 lb 9.6 oz (57.9 kg) SpO2 94% BMI 20.60 kg/m?? Physical Exam Constitutional: Appearance: Normal appearance. Neurological: Mental Status: She is alert. Psychiatric: Mood and Affect: Mood normal. Behavior: Behavior normal. Assessment/Plan Diagnoses and all orders for this visit: Menopausal and postmenopausal disorder - BD DEXA Axial; Future Cotest next year. Routine mammography. Report bleeding or any AUTOMOTIVE REFINISH TECHNICIAN concerns. BMD ordered. documented in this encounter Plan of Treatment Not on file documented as of this encounter Procedures Procedure Name Priority Date/Time Associated Diagnosis Comments BD DEXA AXIAL Routine 05/07/2025 10:15 AM EDT Menopausal and postmenopausal disorder documented in this encounter Results * BD DEXA Axial (05/07/2025 10:15 AM EDT) Anatomical Region Laterality Modality Body Radiographic Christiane ging 05/07/2025 10:1 5 AM EDT Narrative 05/07/2025 11:04 AM EDT [facility] [address] [place] [address] Mammography Report Signed Patient: Gina Pate MR#: [id number] : 1955 Acct:[id number] Age/Sex: 69 / F ADM Date: 05/07/25 Loc: JUN Attending Dr: Francoise Adam CNM Ordering Physician: FRANCOISE ADAM CNM Results: Date of Service: 05/07/25 Follow Up: Procedure(s): XR DEXA axial skeleton Accession Number(s): [id number] cc: Cecy Pabon; FRANCOISE ADAM CNM EXAMINATION: DXA BONE DENSITY AXIAL HISTORY: last BMD 03/2023, osteopenia TECHNIQUE: Prizzm Dual energy absorptiometry (DEXA) of the lumbar spine, total left hip, and femoral neck was performed. COMPARISON: Comparison is made with the prior examination dated 04/08/2023. FINDINGS: The bone mineral density of the lumbar spine is 1.065 g/cm2, corresponding to a T-score of -1.0, and a Z-score of 0.6. This is indicative of normal bone mineral density. This represents a BMD change of -0.7% compared to the prior exam. This is not statistically significant. The bone mineral density of the left total hip is 1.021 g/cm2, corresponding to a T-score of 0.1, and a Z-score of 1.5. This is indicative of normal bone mineral density. This represents a BMD change of -1.3% compared to the prior exam. This is not statistically significant. The bone mineral density of the left femoral neck is 0.965 g/cm2, corresponding to a T-score of -0.5, and a Z-score of 1.1. This is indicative of normal bone mineral density. This represents a BMD change of 0.1% compared to the prior exam. MM/XR DEXA axial skeleton IMPRESSION: Based on bone mineral density, and according to World Health Organization (WHO) criteria, the diagnosis is consistent with normal bone mineral density. Statistically, 68% of repeat scans fall within 1 SD (+/- 0.010 g/cm2 for AP spine L1-L4) and 1 SD (+/- 0.012 g/cm2 for femur total) FRAX is a trademark of the [employer]'s [place] for Metabolic Bone Disease, a World Health Organization (WHO) Collaborating Center. Electronically signed by: Eric Mathew MD 05/07/2025 11:01 AM EDT Dictated By: Eric Mathew MD Signed By: <Electronically signed by Eric Mathew MD in OV> 05/07/25 1101 DD/ 1015 TD/TT: 05/07/25 1038 Model Maker Plaster: Procedure Note Donotuseinterpreter, Image - 05/07/2025 [facility] [address] [place] [address] Mammography Report Signed Patient: Sam Pate#: [id number] : 6Acct:[id number] Age/Sex: 69 / FADM Date: 05/07/25 Loc: JUN Attending Dr: Francoise Adam CNM Ordering Physician: FRANCOISE ADAMesults: Date of Service: 05/07/25Follow Up: Procedure(s): XR DEXA axial skeleton Accession Number(s): [id number] cc: Cecy Pabon; FRANCOISE ADAM CNM EXAMINATION: DXA BONE DENSITY AXIAL HISTORY: last BMD 03/2023, osteopenia TECHNIQUE: Prizzm Dual energy absorptiometry (DEXA) of the lumbar spine, total left hip, and femoral neck was performed. COMPARISON: Comparison is made with the prior examination dated 04/08/2023. FINDINGS: The bone mineral density of the lumbar spine is 1.065 g/cm2, corresponding to a T-score of -1.0, and a Z-score of 0.6. This is indicative of normal bone mineral density. This represents a BMD change of -0.7% compared to the prior exam. This is not statistically significant. The bone mineral density of the left total hip is 1.021 g/cm2, corresponding to a T-score of 0.1, and a Z-score of 1.5. This is indicative of normal bone mineral density. This represents a BMD change of -1.3% compared to the prior exam. This is not statistically significant. The bone mineral density of the left femoral neck is 0.965 g/cm2, corresponding to a T-score of -0.5, and a Z-score of 1.1. This is indicative of normal bone mineral density. This represents a BMD change of 0.1% compared to the prior exam. MM/XR DEXA axial skeleton IMPRESSION: Based on bone mineral density, and according to World Health Organization (WHO) criteria, the diagnosis is consistent with normal bone mineral density. Statistically, 68% of repeat scans fall within 1 SD (+/- 0.010 g/cm2 for AP spine L1-L4) and 1 SD (+/- 0.012 g/cm2 for femur total) FRAX is a trademark of the [employer] [place] for Metabolic Bone Disease, a World Health Organization (WHO) Collaborating Center. Electronically signed by: Eric Mathew MD 05/07/2025 11:01 AM EDT Dictated By: Eric Mathew MD Signed By: <Electronically signed by Eric Mathew MD in OV> 05/07/25 1101 DD/ 1015 TD/TT: 05/07/25 1038 Model Maker Plaster: Francoise Adam CNM IM DXA PROCEDURES Edited Result - Final documented in this encounter Visit Diagnoses Diagnosis Menopausal and postmenopausal disorder- Primary Unspecified menopausal and postmenopausal disorder documented in this encounter Additional Health Concerns Assessment Noted Time PHQ-9 Depression Total Score: 8 04/02/20 25 12:47 PM EDT documented as of this encounter Care Teams Staff Anesthesiologist Relationship Specialty Start Date End Date Cecy Pabon FNP [address] [place] [id number] PCP - General Family Medicine 09/10/22 documented as of this encounter
--- NOTE | ~2025-05-12 | MR_ITS ---
EXAMINATION: MR CERVICAL SPINE WITHOUT CONTRAST CLINICAL INFORMATION: Radiculopathy, cervical region. Pain neck and right shoulder x2 years. COMPARISON: MRI cervical spine without contrast 07/05/2019. TECHNIQUE: MRI of the cervical spine was obtained using routine sequences without contrast. FINDINGS: There is maintained cervical lordosis. Mild dextro scoliosis is seen. The vertebral heights and alignment is normal. There is loss of C3-4, C4-5, C5-6 and C6 testis 7 disc heights with disc desiccation change. The C2-3 disc level is unremarkable. At C3-4 disc level there is mild diffuse bulge indenting the ventral thecal sac but without spinal canal stenosis. The neural foramina are bilaterally narrowed at At C4-5 disc level there is a broad-based diffuse bulge/osteophyte complex flattening the ventral thecal sac with mild AP canal narrowing. The there is moderate bilateral narrowing of neural foramina. At C5-6 disc level is a disc osteophyte complex resulting in moderate AP canal stenosis at almost effacement of the CSF within the thecal sac. There is moderate to severe left neural foraminal narrowing. Right neural foramina is patent. At C6-7 disc level there is a disc osteophyte complex slightly eccentric to the left para midline region. There is moderate uncovertebral hypertrophic changes as well narrowing bilateral neural foramina. At C7-T1 disc level no evidence of disc bulge, herniation or spinal canal stenosis. The craniovertebral junction and the C1-C2 alignment is normal. The cord signal and the cord caliber is preserved. The bone marrow signal is preserved except for endplate changes at the C4-5, C5-6 and C6/7 disc levels. The cord signal and cord caliber is normal. The prevertebral and paravertebral soft tissues are normal. The lung apices are grossly clear. MR/MR cervical spine wo con IMPRESSION: Multilevel cervical spondylosis/bulge complex and uncovertebral hypertrophic changes from C3-4 through C6/7 disc levels. There is spinal canal stenosis at C4-5 through C6 testis 7 disc levels. The findings are essentially stable compared to previous study. Bilateral narrowing of neural foramina at C3-4, C4-5 and C5-6 disc level worse at the C3-4 disc level. The cord signal appears unremarkable. Electronically signed by: Kelby Lang MD 05/14/2025 09:29 AM EDT RP
--- OUTSIDE RECORDS SUMMARY | 2025-05-12 11:31 | XMS_ITS | Encounter Summary ---
Author Organization [employer] Address [address] [place] [address] Care Team Providers Care Jitterbug Operator Name Role Phone Cecy Pabon CLINICAL PROJECT COORDINATOR Primary Care Provider [phone] Encounter Details Date Type Department Care Team ([facility] Contact Info) Description 06/09/2024 Orders Only [facility] [address] [place], [place] [phone] Provider, MD Jovan Social History Tobacco Use [...] documented as of this encounter Care Teams Jitterbug Operator Relationship Specialty Start Date End Date Cecy Pabon FNP [address] [place] [address] PCP - General Family Medicine 09/10/22 documented as of this encounter
--- OUTSIDE RECORDS SUMMARY | 2025-05-12 11:31 | XMS_ITS | Encounter Summary ---
Author Organization [employer] Address [address] [place] [address] Care Team Providers Care Advanced Manager Name Role Phone Cecy Pabon BALANCER Primary Care Provider [phone] Encounter Details Date Type Department Care Team ([facility] Contact Info) Description 05/07/2025 Results Follow-Up [facility] [address] [place], [place] [phone] Francoise Arteaga CNM [address] [place], [place] [phone] BD DEXA Axial Social History Tobacco Use Types Packs/Day Years [...] as of this encounter Miscellaneous Notes * Result Encounter Note - Francoise Arteaga CNM - 05/07/2025 11:23 AM EDT Please let Gina know her bone density test was normal, and did not show any osteoporosis. Thanks! documented in this encounter Plan of Treatment Not on file documented as of this encounter Visit Diagnoses Not on filedocumented in this encounter Additional Health Concerns Assessment Noted Time PHQ-9 Depression Total Score: 8 04/02/20 25 12:47 PM EDT documented as of this encounter Care Teams Advanced Manager Relationship Specialty Start Date End Date Cecy Pabon FNP [address] [place] [address] PCP - General Family Medicine 09/10/22 documented as of this encounter
--- OUTSIDE RECORDS SUMMARY | 2025-05-12 11:31 | XMS_ITS | Encounter Summary ---
Author Organization [employer] [facility] Address [address] [place] [address] Care Team Providers Care Floor Finisher Name Role Phone Cecy Pabon Primary Care Provider [phone] Encounter Details Date Type Department Care Team ([facility] Contact Info) Description 09/10/2022 Telephone [facility] [address] [place], [place] [phone] Jordan Montesinos MD Social History Tobacco Use [...] on filedocumented in this encounter Care Teams Floor Finisher Relationship Specialty Start Date End Date Ccey Pabon FNP [address] [place] [address] PCP - General Family Medicine 09/10/22 documented as of this encounter
--- OUTSIDE RECORDS SUMMARY | 2025-05-12 11:31 | XMS_ITS | Encounter Summary ---
Author Organization [employer] Address [address] [place] [address] Care Team Providers Care Detail Technician Name Role Phone Cecy Pabon Primary Care Provider [phone] Reason for Visit * Reason Onset Date Comments Result Bone density 05/07/2025 Encounter Details Date Type Department Care Team ([facility] [address] Contact Info) Description 05/07/2025 Telephone [facility] [address] [place] [address] Cecy Pabon FNP [address] [place], [place] [phone] Result Bone density Social History Tobacco Use Types Packs/Day Years [...] encounter Miscellaneous Notes * Telephone Encounter - Kavya Selby MA - 05/07/2025 1:13 PM EDT I spoke with the pt I let her know that the Bone density was normal. documented in this encounter Plan of Treatment Not on file documented as of this encounter Visit Diagnoses Not on filedocumented in this encounter Additional Health Concerns Assessment Noted Time PHQ-9 Depression Total Score: 8 04/02/20 25 12:47 PM EDT documented as of this encounter Care Teams Detail Technician Relationship Specialty Start Date End Date Cecy Pabon FNP [address] [place] [id number] PCP - General Family Medicine 09/10/22 documented as of this encounter
--- OUTSIDE RECORDS SUMMARY | 2025-05-12 11:31 | XMS_ITS | Encounter Summary ---
Author Organization [employer] Address [address] [place] [address] Care Team Providers Care Medical Clerk Name Role Phone Cecy Pabon Primary Care Provider [phone] Reason for Visit * Reason Comments Med Refill Encounter Details Date Type Department Care Team ([facility] st Contact Info) Description 09/17/2022 Refill [facility] [address] [place] [address] Cecy Pabon FNP [address] [place], [place] [phone] Lumbar facet arthropathy Social History Tobacco Use [...] EST Spoke with dtr, pt scheduled for [employer] Tele Renewal appt 11/17/22 @ 11:30am. ALL [employer] renewal forms being mailed with return envelope. * Telephone Encounter - Aga Hairston RN - 09/17/2022 1:20 PM EST Duplicate request, was sent/signed 09/10/22. documented in this encounter Plan of Treatment Not on file documented as of this encounter Visit Diagnoses Diagnosis Lumbar facet arthropathy Spondylosis of unspecified site without mention of myelopathy documented in this encounter Care Teams Medical Clerk Relationship Specialty Start Date End Date Cecy Pabon FNP [address] [place] [address] PCP - General Family Medicine 09/10/22 documented as of this encounter
--- OUTSIDE RECORDS SUMMARY | 2025-05-12 11:32 | XMS_ITS | Encounter Summary ---
Author Organization [employer] Address [address] [place] [address] Care Team Providers Care Directory Assistance Operator Name Role Phone Cecy Pabon Primary Care Provider [phone] Reason for Visit * Reason Onset Date Comments Nurse Triage 12/14/2023 Encounter Details Date Type Department Care Team ([facility] Contact Info) Description 12/14/2023 Telephone [facility] [address] [place] [address] Cecy Pabon FNP [address] [place], [place] [phone] Nurse Triage Social History Tobacco Use Types [...] EDT Please assist with obtaining and scanning [facility] notes for provider to reivew prior to telehealth visit tomorrow. Future Appointments Date Time Provider Department Center 12/15/2023 9:30 AM Dinesh Gamino MD [facility] 01/21/2024 9:00 AM Margaret De La Rosa [facility] * Telephone Encounter - Samira Izquierdo RN - 12/14/2023 2:40 PM EDT Call to [facility], spoke with nico Wheeler who is on HIPAA. Reports pt went into ER due toright sided rib pain. Pt found to have a nodule on rib. Per [facility] notes pt discharged home stable.Pt CXR [...] Center 12/15/2023 9:30 AM [address]inesh G[address] MD [facility] 01/21/2024 9:00 AM Margaret De La Rosa, OD [facility] Video visit offered and caller accepted Positive Triage Question: * Patient wants to be seen * All higher-acuity triage questions were negative Care Advice Discussed: * Continue Treatment * Reasons To Call Back - You become worse * Telephone Encounter - Jadiel Torre - 12/14/2023 1:53 PM EDT Patient calling to report ED visit on : Date: 12/13/23 Hospital: [facility] Seen for: Chest Pain Pt stated still [...] documented as of this encounter Care Teams Directory Assistance Operator Relationship Specialty Start Date End Date Cecy Pabon FNP [address] [place] [id number] PCP - General Family Medicine 09/10/22 documented as of this encounter
--- OUTSIDE RECORDS SUMMARY | 2025-05-12 11:32 | XMS_ITS | Clinical Summary ---
Author Organization [employer] Address [address] [place] [address] [address] [place] [address] Care Team Providers Care Rugby League Footballer Name Role Phone Cecy Pabon WASHHOUSE WORKER Primary Care Provider [phone] Allergies Active Allergy Reactions Criticality Noted Date [...] wrist 12/28/2024 Overview (12/28/2024): EMG October 2024: Brau-af-ptrbwadv right median neuropathy across carpal tunnel. Assessment & Plan (12/28/2024 11:41 AM EDT): - Continues with wrist splint at night - Will let us know if interested in referral to Ortho - hand specialist in future Lateral epicondylitis of left elbow 09/19/2024 PMB (postmenopausal bleeding) 08/04/2024 Overview (08/04/2024): Evaluated by [facility] CHIEF POWER DISPATCHER in Apr - May 2024 EMB Apr [...] date approx 40 years ago November 2023: [facility] CXR with question of 7mm nodule right lung 12/25/23: CT Chest w/o contrast at [facility], nonspecific findings of irregular areas of nodular density within the right lung apex and anteriorly within the right middle lobe and peripherally long left major fissure 01/04/24: Referral to [facility] Pulmonology for further evaluation and management Following with [facility] Pul - next appt scheduled October 2024 06/09/24: [facility] Pul - Dr. Josee Bass. last visit [...] date approx 40 years ago November 2023: [facility] CXR with question of 7mm nodule right lung 12/25/23: CT Chest w/o contrast at [facility], nonspecific findings of irregular areas of nodular density within the right lung apex and anteriorly within the right middle lobe and peripherally long left major fissure 01/04/24: Referral to [facility] Pulmonology for further evaluation and management Following with [facility] - next appt scheduled October 2024 Assessment & Plan (01/04/2024 8:19 AM EDT): Pertinent hx: tuberculosis infx s/p tx approx 40 years ago, hx of smoking cigarettes w/ quit date approx 40 years ago November 2023: [facility] CXR with question of 7mm nodule right lung 12/25/23: CT Chest w/o contrast at [facility], nonspecific findings of irregular areas of nodular density within the right lung apex and anteriorly within the right middle lobe and peripherally long left major fissure 01/04/24: Referral to [facility] Pulmonology for further evaluation and management [...] 02/27/25 Cervical CA: 04/01/23 NILM HPV neg [facility] CN[facility]. Previous 07/07/2017 - Pap ASCUS, HPV neg. Due for co-testing Mar 2026. Colon CA: 03/04/2021: Colonoscopy by Dr. Fox (records requested 08/04/24) Optometry: [facility] 12/17/21 Dental: established with dental home [facility] Dental BMD: osteopenia Mar 2023 Last PE: [...] Per consult note: CT brain WO at [facility] in Jun 2020: [place] MRI brain WO at [facility] in November 2020: [place] Assessment & Plan (03/11/2023 6:31 AM EDT): Followed by Dr. Liz - [facility] Continues with sumatriptan PRN migraines Per consult note: CT brain WO at [facility] in Jun 2020: [place] MRI brain WO at [facility] in November 2020: [place] Dysplastic nevus of trunk 02/03/2023 Cervical arthritis 01/25/2019 Overview (10/28/2024): On her C-spine MRI [facility] July 05, 2019 she had spondylosis at C4-5, C5-6, C6-7 with neuroforaminal narrowing most significant on the left at C4-5, left C5-6. Assessment & Plan (04/02/2025 12:44 PM EDT): Referral to [facility] pain management placed 04/02/2025 Decreased lung capacity [...] facet arthropathy at L4-L5 bilaterally with stable vyjv-hp-vywctztv spinal canal stenosis Development of small shallow [...] physical therapy In agreement with referral to [facility] Pain Management - referral placed 04/02/25 Follow [...] Right shoulder MRI October 2020 performed at [facility] demonstrated a high-grade partial thickness bursal [...] arthroscopic hardware removal by Dr. Lentz at [facility] Assessment & Plan (10/28/2024 2:57 PM EST): Continued pain in right shoulder s/p repeat surgery Completed rehab/PT Completed percocet taper, continues on topical analgesics and flexeril nightly PRN for pain control Referral to reestablish with [facility]-Dr. Lentz placed on 10/27/2024 Assessment & Plan [...] Encounters Date Type Department Care Team Description 05/07/2025 Telephone [facility] [address] [place] [address] Cecy Pabon FNP Result Bone density 05/07/2025 Results Follow-Up [facility] [address] [place] [address] Rylee Adam CNM BD DEXA Axial 04/09/2025 Results Follow-Up [facility] [address] [place] [address] Cecy Pabon FNP Hemoglobin A1c, Hepatic Function Panel 04/03/2025 9:00 AM EDT Office Visit [facility] [address] [place] [address] Rylee Adam CNM Menopausal and postmenopausal disorder (Primary Dx) 04/03/2025 Travel 04/02/2025 11:15 AM EDT Office Visit [facility] [address] [place] [address] Cecy Pabon FNP Spondylolisthesis of lumbar region (Primary Dx); Transaminitis; Prediabetes; Healthcare maintenance; Cervical arthritis 04/02/2025 Telephone [facility] [address] [place] [address] Cecy Pabon FNP Chart Prep 04/02/2025 Travel 02/27/2025 Orders Only [facility] [address] [place] [address] Cecy Pabon FNP from Last 3 Months [...] 10:15 AM EDT Menopausal and postmenopausal disorder HEPATIC FUNCTION PANEL Routine 04/02/2025 1:21 PM EDT Transaminitis HEMOGLOBIN A1C Routine [...] Recently Relevant to Health Maintenance Results * BD DEXA Axial (05/07/2025 10:15 AM EDT) Anatomical Region Laterality Modality Body Radiographic Christiane ging 05/07/2025 10:1 5 AM EDT Narrative 05/07/2025 11:04 AM EDT [facility] [address] [place] [address] Mammography Report Signed Patient: Gina Pate MR#: [id number] : 1955 Acct:[id number] Age/Sex: 69 / F ADM Date: 05/07/25 Loc: HO.MAMMO Attending Dr: Rylee Adam CNM Ordering Physician: RYLEE ADAM CNM Results: Date of Service: 05/07/25 Follow Up: Procedure(s): XR DEXA axial skeleton Accession Number(s): [id number] cc: Cecy Pabon; RYLEE ADAM CNM EXAMINATION: DXA BONE DENSITY AXIAL HISTORY: last BMD 03/2023, osteopenia TECHNIQUE: DocDep Dual energy absorptiometry (DEXA) of the lumbar [...] of the [employer] [place] for Metabolic Bone Disease, a World Health Organization (WHO) Collaborating Center. Electronically signed by: Eric Mathew MD 05/07/2025 11:01 AM EDT Dictated By: Eric Mathew MD Signed By: <Electronically signed by Eric Mathew MD in OV> 05/07/25 1101 DD/ 1015 TD/TT: 05/07/25 1038 Oracle Apex Developer: Procedure Note Donotuseinterpreter, Image - 05/07/2025 [facility] [address] [place] [address] [place] [address] Mammography Report Signed Patient: Sam Pate#: [id number] : 6Acct:[id number] Age/Sex: 69 / FADM Date: 05/07/25 Loc: HO.MAMMO Attending Dr: Rylee Adam CNM Ordering Physician: RYLEE ADAMesults: Date of Service: 05/07/25Follow Up: Procedure(s): XR DEXA axial skeleton Accession Number(s): [id number] cc: Cecy Pabon; RYLEE ADAM CNM EXAMINATION: DXA BONE DENSITY AXIAL HISTORY: last BMD 03/2023, osteopenia TECHNIQUE: DocDep Dual energy absorptiometry (DEXA) of the lumbar [...] is a trademark of the [employer]'s [place] for Metabolic Bone Disease, a World Health Organization (WHO) Collaborating Center. Electronically signed by: Eric Mathew MD 05/07/2025 11:01 AM EDT Dictated By: Eric Mathew MD Signed By: <Electronically signed by Eric Mathew MD in OV> 05/07/25 1101 DD/ 1015 TD/TT: 05/07/25 1038 Oracle Apex Developer: us Rylee Adam CN IMG DXA PROCEDURES Edited Result - Final * Hemoglobin A1c (04/02/2025 1:21 PM EDT) Hemoglobin A1c 5.7 <6.0 % [facility] Comment:Hemoglobin A1C Refer ence Range Adults: 4.8 - 6.0 % Non diabetic: < 6.0 % Goal: < 7.0 %Additional Action Suggested: > 8.0 %Note: Hemoglobin A1c results are invalid for patients with abnormal amounts of HbF. Blood transfusions may impact the HbA1c concentration in the patient sample. Estimated Average Glucose 117 mg/dL [facility] Comment:eAG = Estimated ave rage glucose which is %A1C expressed asaverage glucose, using the formula of the E1K-UwfiolaElzyvgu Glucose study (ADAG), Diabetes Care, Vol.31,#8,Mar. 2007 Blood Venous blood specimen / Unknown 04/02/2025 1:21 PM EDT 04/02/2025 1:54 PM EDT us Cecy Pabon WASHHOUSE WORKER LAB BLOOD ORDERABLES Final Res ult [facility] [address] [place] [phone] * (ABNORMAL) Hepatic Function Panel (04/02/2025 1:21 PM EDT) Bilirubin, Total 0.7 0.0 - 1.0 mg/dL [facility] Bilirubin, Direct 0.2 0.0 - 0.5 mg/dL [facility] Aspartate Amino Transferase 24 5 - 31 U/L [facility] Alanine Aminotransferase 30 0 - 31 U/L [facility] Total Protein 7.7 6.5 - 8.0 g/dL [facility] Albumin Level 5.2(H) 3.5 - 5.0 g/dL [facility] Alkaline Phosphatase 67 39 - 117 U/L [facility] Blood Venous blood specimen / Unknown 04/02/2025 1:21 PM EDT 04/02/2025 1:54 PM EDT us Cecy Pabon WASHHOUSE WORKER LAB BLOOD ORDERABLES Final Res ult [facility] [address] [place] [phone] * BI Mammogram Screening Tomosynthesis Bilateral (02/27/2025 7:35 AM EDT) Anatomical Region Laterality Modality Breast Bilateral Mammography 02/27/2025 7:35 AM EDT Narrative 03/11/2025 8:45 PM EDT [facility] [address] [place] [address] Mammography Report Signed Patient: Gina Pate MR#: [id number] : 1955 Acct:[id number] Age/Sex: 69 / F ADM Date: 02/27/25 Loc: HO.MAMMO Attending Dr: Cecy SINGH Ordering Physician: Cecy Pabon Results: 1Negat nupur Date of Service: 02/27/25 Follow Up: 1 Year From [facility] Mammogram Procedure(s): MM tomosynthesis screening BI Accession Number(s): [id number] cc: Cecy Pabon EXAMINATION: MM SCREENING DIGITAL [...] Miesha Chowdary DO in OV> 03/11/252041 DD/ TD/TT: 02/27/2549 Oracle Apex Developer: Procedure Note Zechariah, Image - 03/11/20[facility] [address] [place] [address] Mammography Report Signed Patient: Sam Pate#: [id number] : 1955cct:[id number] Age/Sex: 69 / FADM Date: 02/27/25 Loc: HO.MAMMO Attending Dr: Cecy Pabon WASHHOUSE WORKER Ordering Physician: Cecy PabonPResults: 1Negat nupur Date of Service: 02/27/25Follow Up: 1 Year From [facility] Mammogram Procedure(s): MM tomosynthesis screening BI Accession Number(s): [id number] cc: Cecy Pabon WASHHOUSE WORKER EXAMINATION: MM SCREENING DIGITAL BREAST TOMOSYNTHESIS, BILATERAL [...] in OV> 03/11/252041 DD/ 4 TD/TT: 02/27/2549 Oracle Apex Developer: Cecy CRAFTP IMG BI PROCEDURES Edited Resul t - Final * Hepatitis C Viral RNA, Quantitative, Real-Time PCR (12/14/2024 8:36 AM EDT) Hepatitis C Viral Load <15 NOT DETECTED NOT DETECTED IU/mL [facility] HCV Log PCR <1.18 NOT DETECTED NOT DETECTED Log IU/mL [facility] Comment:For additional infor casey, please refer tohttp://education.Cloutex/faq/TOQ31q9(This link is being provided for informational/educational purposes only.)THIS TEST WAS PERFORMED AT:[facility] [place] [id number] HOLBROOK MD Blood 12/14/2024 8:36 AM EDT 12/14/2024 2:13 PM EDT Cecy CRAFTP LAB BLOOD ORDERABLES Final Res ult [facility] [address] [place] [phone] * (ABNORMAL) Lipid Panel, Standard (12/14/2024 8:36 AM EDT) Triglycerides 157(H) <150 mg/dL [facility] Comment:Desirable Triglyceri de: less than 150 mg/dLBorderline High Triglyceride 150-199 mg/dLHigh Triglyceride: 200-499 mg/dLVery High Triglyceride: greater than or equal to 5OO mg/dL Cholesterol 177 <200 mg/dL [facility] Comment:Desirable Cholestero l: less than 200 mg/dLBorderline High Cholesterol: 200-239 mg/dLHigh Cholesterol: greater than 239 mg/dL LDL Cholesterol Calculated 96 <100 mg/dL [facility] Comment:Desirable LDL: less than 100 mg/dLNear Optimal/Above Optimal LDL: 110- 129 mg/dLBorderline High LDL: 130-159 mg/dLHigh LDL: 160-189 mg/dLVery High LDL: greater than or equal to 190 mg/dL HDL Cholesterol 50 >40 mg/dL [facility] Comment:Desirable HDL: great er than 40 mg/dL Note: This HDL assay may give artificially low results in patients with liver disease. Blood Venous blood specimen / Unknown 12/14/2024 8:36 AM EDT 12/14/2024 2:13 PM EDT Cecy Pabon WASHHOUSE WORKER LAB BLOOD ORDERABLES Final Res ult [facility] [address] [place] [address] [phone] * HPV mRNA E6/E7 w/Reflex to HPV Genotypes 16, 18/45 (04/01/2023 12:00 AM EDT) HPV nRNA E6/E7 Not Detected Not Detected [facility] Comment:Methodology: Transcr iption-Mediated AmplificationThis assay detects E6/E7 viral messenger RNA (mRNA) from 14high-risk HPV types (16,18,31,33,35,39,45,51,52,56,58,59,66,68).Cervical sources are required for HPV testing.If a vaginal source from a patient who has had atotal hysterectomy with removal of cervix wassubmitted, please contact the testing laboratoryfor alternative testing options.For additional information, please refer tohttp://education.Cloutex/faq/GUZ213c3(This link if provided for information/educational purposes only.)THIS TEST WAS PERFORMED AT:[facility] [place] [phone] HOLBROOK MD HPV mRNA E6/E7 TNP [facility] HPV 16 RNA TNP [facility] HPV 18/45 [facility] 04/01/2023 04/02/2023 10: 15 AM EDT us Rylee Adam [facility] CYTOLOGY ORDERABLES F inal Result [facility] [address] [place] [phone] [phone] * Pap Smear (04/01/2023 12:00 AM EDT) 04/01/2023 04/02/2023 10: 15 AM EDT Narrative [facility] - 04/24/2023 4:11 PM EDT ----- ------- Name: Judson Gina Matute Age/Sex: 67/F : 1955 Unit#: [id number] Attend Dr: RYLEE ADAM [facility] Re04/01/23 Status: DEP REF Location: HO.HHCLNP Disch: ----- ------- SPEC : [id number] RECD: 04/02/23 STATUS: GEO PALOMINO NUM: [id number] KEE: 04/01/23-[address]: RYLEE ADAM CNM ENTERED: 04/05/23 SP TYPE: Pap Smr OTHR DR: ORDERED: Pap Smear Interpretation Satisfactory for evaluation. Negative for intraepithelial lesion or malignancy. Atrophic. HPV mRNA E6/E7: NOT DETECTED This assay detects E6/E7 viral messenger RNA (mRNA) from 14 high-risk HPV types (16, 18, 31, 33, 35, 39, 45, 51, 52, 56, 58, 59, 66, 68) HPV testing performed by [employer], [place], [place]. See reference laboratory portion of the EMR for entire report. Clinical Information LMP:Menopausal Previous PAP test:2017, ASCUS Other history:SAMI I Material Received ThinPrep-Cervical ----- ------- Signed (signature on file) Ranjana Kaufman Amanda 04/24/23 1611 ----- ------- END OF REPORT Rylee Adam CNM LAB CYTOLOGY ORDERABLES F inal Result [facility] [address] [place] [phone] from Last 3 Months or Most Recently Relevant to Health Maintenance Insurance [employer] [facility] [employer] (HMO D-SNP) DENTAL [facility] Care Teams Rugby League Footballer Relationship Specialty Start Date End Date Cecy Pabon FNP [address] [place] [phone] PCP - General Family Medicine 09/10/22
== END 2025-05-12 11:29 | disposition home or self-care (01) ==
LOC: HO.MRI 11:28
PROVIDERS: PCP Registered Nurse; Visit Provider Internal Medicine
DX: M54.12 Radiculopathy, cervical region (principal)
CPT/HCPCS: 72141

== ENCOUNTER 2025-05-31 14:25 | Outpatient (REF) | payer OTHER, SELFPAY ==
[2025-06-01 08:13] LABS: Bacterial Vaginosis PCR NEGATIVE (Negative); Candida Group PCR NOT DETECTED (Not Detect); Candida glab krusei PCR NOT DETECTED (Not Detect); Trichomonas vaginalis PCR NOT DETECTED (Not Detect)
== END 2025-05-31 14:26 | disposition home or self-care (01) ==
LOC: HO.LAB 14:25
PROVIDERS: PCP Registered Nurse; Visit Provider Advanced Practice Midwife
DX: Z01.419 Encounter for gynecological examination (general) (routine) without abnormal findings (principal); N95.2 Postmenopausal atrophic vaginitis; N90.89 Other specified noninflammatory disorders of vulva and perineum
CPT/HCPCS: 81515; 99212; 99397

== ENCOUNTER 2025-05-31 14:25 | Outpatient (AMB) | payer OTHER, SELFPAY ==
--- NOTE | 2025-05-31 14:40 | MHC.OFFVIS ---
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 No pelvic pelvic pain or urinary symptoms. Not sexually active in over 25yrs. Admits to a using a new soap with stones in it. Attempting to eat a healthy diet with calcium and vitamin D and stays active with exercise. Last pap smear; 2022, negative. Last mammogram; 2024. Colonoscopy is UTD. Denies any family history of breast, ovarian or colon cancer. PFS Medical History Atrophic vaginitis Breast cyst Cervical arthritis Prediabetes Transaminitis Spondylolisthesis, lumbar region Herniated disc Tachycardia Surgical History Hx of tonsillectomy Hx of section Social History Alcohol intake: never Patient Tobacco Use Status: Never used Tobacco Female Reproductive History Menstrual Total pregnancies: 3 Full term: 3 Number of Living Children: 3 Date of last pap smear: 04/01/23 (neg pap and hpv) Date of Mammogram: 02/27/25 (Birad 1) Date of last Bone Density Screenin05/07/25 Review of Systems Const All systems reviewed & are unremarkable except as noted in HPI and below Reports as per HPI Eyes Reports no additional complaints ENT Reports no additional complaints Card Reports no additional complaints Resp Reports no additional complaints GI Reports as per HPI and Reports no additional complaints Reports as per HPI Musc Reports no additional complaints Skin/Breast Reports as per HPI Neuro Reports no additional complaints Psych Reports no additional complaints Endo Reports no additional complaints Augustin/Lymph Reports no additional complaints Aller/Immun Reports no additional complaints Physical Exam Vital Signs: Last Vital Signs BP 110/70 05/31/25 14:41 BMI result Body Mass Index 22.1 Const General: cooperative, healthy appearing, no acute distress, well developed and alert Orientation/consciousness: patient oriented x3 HEENT Head: Yes normal to inspection Eyes General: appearance normal, both eyes and all related structures Neck Neck: Yes normal visual inspection Thyroid: Thyroid normal Chest Chest palpation & inspection: normal inspection of the chest and other (no puckering, dimpling, peau de orange, retraction, discharge, masses) Breast/axilla inspection: normal inspection of the breasts Breast/axilla palpation: normal palpation of the breasts Resp Effort & Inspection: normal respiratory effort GI Inspection: Yes normal to inspection Palpation (GI): Soft to palpation Rectal Exam - Female: deferred General: Yes bladder normal to palpation External Female Exam: normal external appearance (Atrophic changes, mild erythema) and normal appearance of the urethra Speculum Exam - Vagina: normal appearance of the vagina, normal palpation, normal vaginal discharge and vagina atrophic Speculum Exam - Cervix: normal appearance of the cervix and normal palpation Bimanual exam- vagina & uterus: normal bimanual exam, normal palpation, uterine size normal, bladder normal to palpation, normal palpation and non-tender Bimanual Exam- Adnexa, other: no masses Skin General skin exam: no rashes or lesions noted Rashes: no rashes Neuro General: patient oriented x3 Cognition (Neuro): normal cognition Extrem General: Yes normal to inspection Psych Attitude: cooperative Thought process: Normal thought process present Assessment & Plan Assessment & Plan (1) Encounter for well woman exam with routine gynecological exam: Code(s): Z01.419 - Encounter for gynecological examination (general) (routine) without abnormal findings Category: Medical Plan: Discussed: Current recommendations for pap smears per ASCCP guidelines. Breast awareness, periodic self breast exams and yearly mammogram. Maintain a healthy lifestyle, well balanced diet including Calcium 1,200 mg and Vitamin D 600 IU daily, and routine exercise. Contact the office with any postmenopausal bleeding. Patient verbalizes understanding and agrees to the plan of care. She was given opportunity to ask questions and all questions were answered to the best of my ability. RTO in 1 year for annual building illuminating engineer exam. This note is constructed using voice recognition software. While every effort has been made to ensure accuracy, powder hand errors may have been included. (2) Vulvar irritation: Code(s): N90.89 - Other specified noninflammatory disorders of vulva and perineum Plan: BV panel obtained await results for final plan of care. Advise skin care and to avoid soap particularly the product that she just purchased to the vulva area. The patient expressed understanding and agreement with the plan of care. All of her questions and concerns were addressed to the best of my ability. (3) Atrophic vaginitis: Code(s): N95.2 - Postmenopausal atrophic vaginitis Category: Medical Plan Discuss a normal changes of aging including the thinning a skin which can cause her symptoms such as burning and irritation. Counseled regarding use of topical Estrace for atrophic vaginitis symptoms, instructions for use and warnings reviewed. Plan a follow up in 2-3 months for medication check. Call sooner if there is any concerns or questions. The patient expressed understanding and agreement with the plan of care. All of her questions and concerns were addressed to the best of my ability. Total time I personally spent on visit and management today: ?15 minutes. Time spent included review of pertinent office notes in the electronic health record; review of laboratory and imaging results; review of personal family medical history; performing physical exam; discussing diagnosis and plan of care with the patient; documenting the encounter in the EMR. This note is constructed using voice recognition software. While every effort has been made to ensure accuracy, powder hand errors may have been included. Orders: Orders Bacterial Vaginosis Panel Today N89.8 - Other specified noninflammatory disorders of vagina Medications: New estradiol 0.01%(0.1mg/gram) (Estrace) use nightly externally for two weeks, then twice a week 1 g vaginal 2XW 42.5 grams 0RF Coding Level of Care Code Est Pt Level 2 (57905) Est Pt Prev Care >65y(70565) Diagnoses Encounter for well woman exam with routine gynecological exam Z01.419 Vulvar irritation N90.89 Atrophic vaginitis N95.2
[2025-05-31 14:41] VITALS: BP 110/70; BMI 22.1
--- OUTSIDE RECORDS SUMMARY | 2025-05-31 16:00 | XMS_ITS | Encounter Summary ---
Author Organization [facility] Address [address] [place] [address] Care Team Providers Care Corn Lab Technician Name Role Phone Cecy Pabon Primary Care Provider [phone] Encounter Details Date Type Department Care Team ([facility] Contact Info) Description 09/10/2022 Telephone [facility] MEDICINE [address] [place] [address] Jordan Montesinos MD Social History Tobacco Use [...] Upcoming Encounters Date Type Department Care Team ([facility] Contact Info) Description 07/16/2025 9:00 AM EST Office Visit [facility] MED & PEDS [address] [place], [place] [phone] Cecy Pabon FNP [address] [place], [place] [phone] documented as of this encounter Visit Diagnoses Not on filedocumented in this encounter Care Teams Corn Lab Technician Relationship Specialty Start Date End Date Cecy Pabon FNP [address] [place] [address] PCP - General Family Medicine 09/10/22 documented as of this encounter
--- OUTSIDE RECORDS SUMMARY | 2025-05-31 16:00 | XMS_ITS | Encounter Summary ---
Author Organization [employer] Address [address] [place] [address] Care Team Providers Care Meat Stringer Name Role Phone Cecy Pabon THEATER PROJECTIONIST Primary Care Provider Encounter Details Date Type Department Care Team ([facility] Contact Info) Description 05/07/2025 Results [facility]-Up [facility] MEDICINE [address] [place], [place] [phone] Francoise Arteaga CNM [address] [place], [place] [phone] BD DEXA Axial Social History Tobacco Use [...] Care Team (Late st Contact Info) Description 07/16/2025 9:00 AM EST Office Visit [facility] MED & PEDS [address] [place] [address] Cecy Pabon FNP [address] [place] [address] documented as of this encounter Visit Diagnoses Not on filedocumented in this encounter Additional Health Concerns Assessment Noted Time PHQ-9 Depression Total Score: 8 04/02/20 25 12:47 PM EDT documented as of this encounter Care Teams Meat Stringer Relationship Specialty Start Date End Date Cecy Pabon FNP [address] [place] [address] PCP - General Family Medicine 09/10/22 documented as of this encounter
--- OUTSIDE RECORDS SUMMARY | 2025-05-31 16:00 | XMS_ITS | Encounter Summary ---
Author Organization [employer] Address [address] [place] [address] Care Team Providers Care Director Case Name Role Phone Cecy Pabon REED OR WIND INSTRUMENT REPAIRER Primary Care Provider [phone] Encounter Details Date Type Department Care Team ([facility] Contact Info) Description 06/09/2024 Orders Only [facility] MED & PEDS [address] [place], [place] [phone] Provider, MD Jovan Social History Tobacco Use [...] Description 07/16/2025 9:00 AM EST Office Visit [facility] MED & PEDS [address] [place], [place] [phone] Cecy Pabon FNP [address] [place] [address] documented as of this encounter Procedures Procedure [...] as of this encounter Care Teams Director Case Relationship Specialty Start Date End Date Cecy Pabon FNP [address] [place] [address] PCP - General Family Medicine 09/10/22 documented as of this encounter
--- OUTSIDE RECORDS SUMMARY | 2025-05-31 16:00 | XMS_ITS | Encounter Summary ---
Author Organization [employer] Address [address] [place] [address] Care Team Providers Care Manager Quantitative Name Role Phone Cecy Pabon Primary Care Provider [phone] Reason for Visit * Reason Comments Med Refill Encounter Details Date Type Department Care Team ([facility] st Contact Info) Description 09/17/2022 Refill [facility] MEDICINE [address] [place] [address] Cecy Pabon FNP [address] [place], [place] [phone] Lumbar facet arthropathy Social History Tobacco Use [...] EST Spoke with dtr, pt scheduled for MANAGING JEWEL[employer] Tele Renewal appt 11/17/22 @ 11:30am. ALL MANAGING [employer]EW[employer] renewal forms being mailed with return envelope. * Telephone Encounter - Aga Hairston RN - 09/17/2022 1:20 PM EST Duplicate request, was sent/signed 09/10/22. documented in this encounter Plan of Treatment Upcoming Encounters Date Type Department Care Team (Late st Contact Info) Description 07/16/2025 9:00 AM EST Office Visit [facility] MED & PEDS [address] [place] [address] Cecy Pabon FNP [address] [place] [address] documented as of this encounter Visit Diagnoses Diagnosis Lumbar facet arthropathy Spondylosis of unspecified site without mention of myelopathy documented in this encounter Care Teams Manager Quantitative Relationship Specialty Start Date End Date Cecy Pabon FNP [address] [place] [address] PCP - General Family Medicine 09/10/22 documented as of this encounter
--- OUTSIDE RECORDS SUMMARY | 2025-05-31 16:01 | XMS_ITS | Encounter Summary ---
Author Organization [employer] Address [address] [place] [address] Care Team Providers Care Medical Office Receptionist Name Role Phone Cecy Pabon Primary Care Provider [phone] Reason for Visit * Reason Onset Date Comments Nurse Triage 12/14/2023 Encounter Details Date Type Department Care Team ([facility] Contact Info) Description 12/14/2023 Telephone [facility] MEDICINE [address] [place] [address] Cecy Pabon FNP [address] [place], [place] [phone] Nurse Triage Social History Tobacco Use Types [...] EDT Please assist with obtaining and scanning [facility] ED notes for provider to reivew prior to telehealth visit tomorrow. Future Appointments Date Time Provider Department Center 12/15/2023 9:30 AM Dinesh Gamino MD [facility] 01/21/2024 9:00 AM Margaret De La Rosa [facility] * Telephone Encounter - Samira Izquierdo RN - 12/14/2023 2:40 PM EDT Call to [facility], spoke with nico Wheeler who is on HIPAA. Reports pt went into ER due toright sided rib pain. Pt found to have a nodule on rib. Per [facility] ED notes pt discharged home stable.Pt CXR [...] Center 12/15/2023 9:30 AM Dinesh Gamino MD [facility] 01/21/2024 9:00 AM Margaret De La Rosa, OD [facility] Video visit offered and caller accepted Positive Triage Question: * Patient wants to be seen * All higher-acuity triage questions were negative Care Advice Discussed: * Continue Treatment * Reasons To Call Back - You become worse * Telephone Encounter - Jadiel Torre - 12/14/2023 1:53 PM EDT Patient calling to report ED visit on : Date: 12/13/23 Hospital: [facility] Seen for: Chest Pain Pt stated still feeling symptoms Symptoms: Chest Pain - Adult, Abdominal Pain - Female - Not Outcome: Transfer to a nurse or provider NOW! Reason: Trouble breathing documented in this encounter Plan of Treatment Upcoming Encounters Date Type Department Care Team (Late st Contact Info) Description 07/16/2025 9:00 AM EST Office Visit [facility] MED & PEDS [address] [place] [address] Cecy Pabon FNP [address] [place] [address] documented as of this encounter Visit Diagnoses Not on filedocumented in this encounter Additional Health Concerns Assessment Noted Time PHQ-9 Depression Total Score: 0 02/05/20 23 11:22 AM EDT documented as of this encounter Care Teams Medical Office Receptionist Relationship Specialty Start Date End Date Cecy Pabon FNP [address] [place] [address] PCP - General Family Medicine 09/10/22 documented as of this encounter
--- OUTSIDE RECORDS SUMMARY | 2025-05-31 16:01 | XMS_ITS | Clinical Summary ---
Author Organization [employer] Address [address] [place] [address] 7[address] [place] [address] Care Team Providers Care Supervisor Particleboard Name Role Phone Cecy Pabon CAUSTIC CRESYLATE SHIFT SUPERINTENDENT Primary Care Provider [phone] Allergies Active Allergy Reactions Criticality Noted Date [...] wrist 12/28/2024 Overview (12/28/2024): EMG October 2024: Umhp-rn-ofnthzuh right median neuropathy across carpal tunnel. Assessment & Plan (12/28/2024 11:41 AM EDT): - Continues with wrist splint at night - Will let us know if interested in referral to Ortho - hand specialist in future Lateral epicondylitis of left elbow 09/19/2024 PMB (postmenopausal bleeding) 08/04/2024 Overview (08/04/2024): Evaluated by [facility] DONOR RECRUITMENT MANAGER in Apr - May 2024 EMB Apr [...] date approx 40 years ago November 2023: [facility] CXR with question of 7mm nodule right lung 12/25/23: CT Chest w/o contrast at [facility], nonspecific findings of irregular areas of nodular density within the right lung apex and anteriorly within the right middle lobe and peripherally long left major fissure 01/04/24: Referral to [facility] Pulmonology for further evaluation and management Following with [facility] Pul - next appt scheduled October 2024 06/09/24: [facility] Pul - Dr. Josee Bass. last [...] date approx 40 years ago November 2023: [facility] CXR with question of 7mm nodule right lung 12/25/23: CT Chest w/o contrast at [facility], nonspecific findings of irregular areas of nodular density within the right lung apex and anteriorly within the right middle lobe and peripherally long left major fissure 01/04/24: Referral to [facility] Pulmonology for further evaluation and management Following with [facility] Pul - next appt scheduled October 2024 Assessment & Plan (01/04/2024 8:19 AM EDT): Pertinent hx: tuberculosis infx s/p tx approx 40 years ago, hx of smoking cigarettes w/ quit date approx 40 years ago November 2023: [facility] CXR with question of 7mm nodule right lung 12/25/23: CT Chest w/o contrast at [facility], nonspecific findings of irregular areas of nodular density within the right lung apex and anteriorly within the right middle lobe and peripherally long left major fissure 01/04/24: Referral to [facility] Pulmonology for further evaluation and management [...] 02/27/25 Cervical CA: 04/01/23 NILM HPV neg [facility] CNM. Previous 07/07/2017 - Pap ASCUS, HPV neg. Due for co-testing Mar 2026. Colon CA: 03/04/2021: Colonoscopy by Dr. Fox (records requested 08/04/24) Optometry: [facility] 12/17/21 Dental: established with dental home [facility] Dental BMD: osteopenia Mar 2023 [...] Per consult note: CT brain WO at [facility] in Jun 2020: [place] MRI brain WO at [facility] in November 2020: [place] Assessment & Plan (03/11/2023 6:31 AM EDT): Followed by Dr. Liz - [facility] Continues with sumatriptan PRN migraines Per consult note: CT brain WO at [facility] in Jun 2020: [place] MRI brain WO at [facility] in November 2020: [place] Dysplastic nevus of trunk 02/03/2023 Cervical arthritis 01/25/2019 Overview (10/28/2024): On her C-spine MRI [facility] July 05, 2019 she had spondylosis at C4-5, C5-6, C6-7 with neuroforaminal narrowing most significant on the left at C4-5, left C5-6. Assessment & Plan (04/02/2025 12:44 PM EDT): Referral to [facility] pain management placed 04/02/2025 Decreased lung [...] facet arthropathy at L4-L5 bilaterally with stable lxta-uq-ryvmrgsx spinal canal stenosis Development of small shallow [...] physical therapy In agreement with referral to [facility] Pain Management - referral placed 04/02/25 [...] Right shoulder MRI October 2020 performed at [facility] demonstrated a high-grade partial thickness bursal [...] arthroscopic hardware removal by Dr. Lentz at [facility] Assessment & Plan (10/28/2024 2:57 PM EST): Continued pain in right shoulder s/p repeat surgery Completed rehab/PT Completed percocet taper, continues on topical analgesics and flexeril nightly PRN for pain control Referral to reestablish with [facility]-Dr. Lentz placed on 10/27/2024 Assessment [...] Encounters Date Type Department Care Team Description 05/12/2025 Orders Only [facility] External Provider, [facility] 05/07/2025 Telephone [facility] [address] [place] [address] Cecy Pabon FNP Result Bone density 05/07/2025 Results Follow-Up [facility] [address] [place] [address] Rylee Adam CNM BD DEXA Axial 04/09/2025 Results Follow-Up [facility] [address] [place] [address] Cecy Pabon FNP Hemoglobin A1c, Hepatic Function Panel 04/03/2025 9:00 AM EDT Office Visit [facility] [address] [place] [phone] Rylee Adam CNM Menopausal and postmenopausal disorder (Primary Dx) 04/03/2025 Travel 04/02/2025 11:15 AM EDT Office Visit [facility] [address] [place] [address] Cecy Pabon FNP Spondylolisthesis of lumbar region (Primary Dx); Transaminitis; Prediabetes; Healthcare maintenance; Cervical arthritis 04/02/2025 Telephone [facility] [address] [place] [address] Cecy Pabon FNP Chart Prep 04/02/2025 Travel from Last 3 Months Immunizations Immunization Administration [...] 04/02/2025 11:02 AM EDT Plan of Treatment Upcoming Encounters Date Type Department Care Team (Late st Contact Info) Description 07/16/2025 9:00 AM EST Office Visit [facility] [address] [place] [address] Cecy Pabon, [place] [address] [place] [address] Health Maintenance Due Date Last Done Comments [...] 04/01/2026 04/01/2023 Depression Screening 04/02/2026 04/02/2025, 04/02/20 Diabetes: Hemoglobin A1C 04/02/2026 025, 12/14/2024, 06/25/2023 [...] Procedure Name Priority Date/Time Associated Diagnosis Comments MR CERVICAL SPINE WO CONTRAST Routine 05/12/2025 11:33 AM EDT BD DEXA AXIAL Routine 05/07/2025 10:15 AM [...] Recently Relevant to Health Maintenance Results * MR Cervical Spine w/o Contrast (05/12/2025 11:33 AM EDT) Anatomical Region Laterality Modality Spine, C-spine Magnetic Resonan ce 05/12/2025 11:3 3 AM EDT Narrative 05/14/2025 9:32 AM EDT [place] [address] Magnetic Resonance Report Signed Patient: Gina Pate MR#: [id number] : 1955 Acct:[id number] Age/Sex: 69 / F ADM Date: 05/12/25 Loc: HO.MRI Attending Dr: Joe Zepeda MD Ordering Physician: Joe Zepeda MD Date of Service: 05/12/25 Procedure(s): MR cervical spine wo con Accession Number(s): [id number] cc: Joe Zepeda MD; Cecy Pabon Reason for Exam: M54.12 - Radiculopathy, cervical region EXAMINATION: MR CERVICAL SPINE WITHOUT CONTRAST CLINICAL INFORMATION: Radiculopathy, cervical region. Pain neck and right shoulder x2 years. COMPARISON: MRI cervical spine without contrast 07/05/2019. TECHNIQUE: MRI of the cervical spine was obtained using routine sequences without contrast. FINDINGS: There is maintained cervical lordosis. Mild dextro scoliosis is seen. The vertebral heights and alignment is normal. There is loss of C3-4, C4-5, C5-6 and C6 testis 7 disc heights with disc desiccation change. The C2-3 disc level is unremarkable. At C3-4 disc level there is mild diffuse bulge indenting the ventral thecal sac but without spinal canal stenosis. The neural foramina are bilaterally narrowed at At C4-5 disc level there is a broad-based diffuse bulge/osteophyte complex flattening the ventral thecal sac with mild AP canal narrowing. The there is moderate bilateral narrowing of neural foramina. At C5-6 disc level is a disc osteophyte complex resulting in moderate AP canal stenosis at almost effacement of the CSF within the thecal sac. There is moderate to severe left neural foraminal narrowing. Right neural foramina is patent. At C6-7 disc level there is a disc osteophyte complex slightly eccentric to the left para midline region. There is moderate uncovertebral hypertrophic changes as well narrowing bilateral neural foramina. At C7-T1 disc level no evidence of disc bulge, herniation or spinal canal stenosis. The craniovertebral junction and the C1-C2 alignment is normal. The cord signal and the cord caliber is preserved. The bone marrow signal is preserved except for endplate changes at the C4-5, C5-6 and C6/7 disc levels. The cord signal and cord caliber is normal. The prevertebral and paravertebral soft tissues are normal. The lung apices are grossly clear. MR/MR cervical spine wo con IMPRESSION: Multilevel cervical spondylosis/bulge complex and uncovertebral hypertrophic changes from C3-4 through C6/7 disc levels. There is spinal canal stenosis at C4-5 through C6 testis 7 disc levels. The findings are essentially stable compared to previous study. Bilateral narrowing of neural foramina at C3-4, C4-5 and C5-6 disc level worse at the C3-4 disc level. The cord signal appears unremarkable. Electronically signed by: Kelby Lang MD 05/14/2025 09:29 AM EDT RP Dictated By: Kelby Lang MD Signed By: <Electronically signed by Kelby Lang MD in OV> 05/14/25 0929 DD/ 1133 TD/TT: 05/12/25 1205 Mathematics Lecturer: [facility] Procedure Note Donotuseinterpreter, Image - 05/14/2025 [place] [address] Magnetic Resonance Report Signed Patient: Sam Pate#: [id number] : 6Acct:[id number] Age/Sex: 69 / FADM Date: 05/12/25 Loc: HO.MRI Attending Dr: Joe Zepeda MD Ordering Physician: Joe Zepeda MD Date of Service: 05/12/25 Procedure(s): MR cervical spine wo con Accession Number(s): [id number] cc: Joe Zepeda MD; Cecy Pabon Reason for Exam: M54.12 - Radiculopathy, cervical region EXAMINATION: MR CERVICAL SPINE WITHOUT CONTRAST CLINICAL INFORMATION: Radiculopathy, cervical region. Pain neck and right shoulder x2 years. COMPARISON: MRI cervical spine without contrast 07/05/2019. TECHNIQUE: MRI of the cervical spine was obtained using routine sequences without contrast. FINDINGS: There is maintained cervical lordosis. Mild dextro scoliosis is seen. The vertebral heights and alignment is normal. There is loss of C3-4, C4-5, C5-6 and C6 testis 7 disc heights with disc desiccation change. The C2-3 disc level is unremarkable. At C3-4 disc level there is mild diffuse bulge indenting the ventral thecal sac but without spinal canal stenosis. The neural foramina are bilaterally narrowed at At C4-5 disc level there is a broad-based diffuse bulge/osteophyte complex flattening the ventral thecal sac with mild AP canal narrowing. The there is moderate bilateral narrowing of neural foramina. At C5-6 disc level is a disc osteophyte complex resulting in moderate AP canal stenosis at almost effacement of the CSF within the thecal sac. There is moderate to severe left neural foraminal narrowing. Right neural foramina is patent. At C6-7 disc level there is a disc osteophyte complex slightly eccentric to the left para midline region. There is moderate uncovertebral hypertrophic changes as well narrowing bilateral neural foramina. At C7-T1 disc level no evidence of disc bulge, herniation or spinal canal stenosis. The craniovertebral junction and the C1-C2 alignment is normal. The cord signal and the cord caliber is preserved. The bone marrow signal is preserved except for endplate changes at the C4-5, C5-6 and C6/7 disc levels. The cord signal and cord caliber is normal. The prevertebral and paravertebral soft tissues are normal. The lung apices are grossly clear. MR/MR cervical spine wo con IMPRESSION: Multilevel cervical spondylosis/bulge complex and uncovertebral hypertrophic changes from C3-4 through C6/7 disc levels. There is spinal canal stenosis at C4-5 through C6 testis 7 disc levels. The findings are essentially stable compared to previous study. Bilateral narrowing of neural foramina at C3-4, C4-5 and C5-6 disc level worse at the C3-4 disc level. The cord signal appears unremarkable. Electronically signed by: Kelby Lang MD 05/14/2025 09:29 AM EDT Dictated By: Kelby Lang MD Signed By: <Electronically signed by Kelby Lang MD in OV> 05/14/25 09 DD/ 1133 TD/TT: 05/12/25 1205 Mathematics Lecturer: [facility] External Provider IMG MRI PROCEDURES Edited Result - Final * BD DEXA Axial (05/07/2025 10:15 AM EDT) Anatomical Region Laterality Modality Body Radiographic Christiane ging 05/07/2025 10:1 5 AM EDT Narrative 05/07/2025 11:04 AM EDT [facility] [place], [place] [address] Mammography Report Signed Patient: Gina Pate MR#: [id number] : 1955 Acct:[id number] Age/Sex: 69 / F ADM Date: 05/07/25 Loc: HO.MAMMO Attending Dr: Rylee Adam CNM Ordering Physician: RYLEE ADAM CNM Results: Date of Service: 05/07/25 Follow Up: Procedure(s): XR DEXA axial skeleton Accession Number(s): [id number] cc: Cecy Pabon; RYLEE ADAM CNM EXAMINATION: DXA BONE DENSITY AXIAL HISTORY: last BMD 03/2023, osteopenia TECHNIQUE: Launchups Dual energy absorptiometry (DEXA) of the lumbar [...] is a trademark of the [employer] [place] for Metabolic Bone Disease, a World Health Organization (WHO) Collaborating Center. Electronically signed by: Eric Mathew MD 05/07/2025 11:01 AM EDT Dictated By: Eric Mathew MD Signed By: <Electronically signed by Eric Mathew MD in [place]> 05/07/25 1101 DD/ 1015 TD/TT: 05/07/25 1038 Mathematics Lecturer: Procedure Note Donotuseinterpreter, Image - 05/07/2025 [facility] [address] [place], [place] [address] Mammography Report Signed Patient: Sam Pate#: [id number] : 6Acct:[id number] Age/Sex: 69 / FADM Date: 05/07/25 Loc: JUN Attending Dr: Rylee Adam CNM Ordering Physician: RYLEE ADAMesults: Date of Service: 05/07/25Follow Up: Procedure(s): XR DEXA axial skeleton Accession Number(s): [id number] cc: Cecy Pabon; RYLEE ADAM CNM EXAMINATION: DXA BONE DENSITY AXIAL HISTORY: last BMD 03/2023, osteopenia TECHNIQUE: Launchups Dual energy absorptiometry (DEXA) of the lumbar [...] is a trademark of the [employer] [place] for Metabolic Bone Disease, a World Health Organization (WHO) Collaborating Center. Electronically signed by: Eric Mathew MD 05/07/2025 11:01 AM EDT Dictated By: Eric Mathew MD Signed By: <Electronically signed by Eric Mathew MD in [place]> 05/07/25 1101 DD/ 1015 TD/TT: 05/07/25 1038 Mathematics Lecturer: Rylee Adam [facility] DXA PROCEDURES Edited Result - Final * Hemoglobin A1c (04/02/2025 1:21 PM EDT) Hemoglobin A1c 5.7 <6.0 % [facility] Comment:Hemoglobin A1C Refer ence Range Adults: 4.8 - 6.0 % Non diabetic: < 6.0 % Goal: < 7.0 %Additional Action Suggested: > 8.0 %Note: Hemoglobin A1c results are invalid for patients with abnormal amounts of HbF. Blood transfusions may impact the HbA1c concentration in the patient sample. Estimated Average Glucose 117 mg/dL [facility] Comment:eAG = Estimated ave rage glucose which is %A1C expressed asaverage glucose, using the formula of the J4G-RwbnryfDufctyw Glucose study (ADAG), Diabetes Care, Vol.31,#8,Mar. 2007 Blood Venous blood specimen / Unknown 04/02/2025 1:21 PM EDT 04/02/2025 1:54 PM EDT Cecy Ramanajose alejandro CAUSTIC CRESYLATE SHIFT SUPERINTENDENT LAB BLOOD ORDERABLES Final Res ult Performing Organization Address [facility] Co de Phone Number [facility] [address] [place] [address] [phone] * (ABNORMAL) Hepatic Function Panel (04/02/2025 1:21 PM EDT) Bilirubin, Total 0.7 0.0 - 1.0 mg/dL [facility] Bilirubin, Direct 0.2 0.0 - 0.5 mg/dL [facility] Aspartate Amino Transferase 24 5 - 31 U/L [facility] Alanine Aminotransferase 30 0 - 31 U/L [facility] Total Protein 7.7 6.5 - 8.0 g/dL [facility] Albumin Level 5.2(H) 3.5 - 5.0 g/dL [facility] Alkaline Phosphatase 67 39 - 117 U/L [facility] Blood Venous blood specimen / Unknown 04/02/2025 1:21 PM EDT 04/02/2025 1:54 PM EDT Cecy Pabon CAUSTIC CRESYLATE SHIFT SUPERINTENDENT LAB BLOOD ORDERABLES Final Res ult Performing Organization Address [facility] Co de Phone Number [facility] [address] [place] [address] [phone] * BI Mammogram Screening Tomosynthesis Bilateral (02/27/2025 7:35 AM EDT) Anatomical Region Laterality Modality Breast Bilateral Mammography 02/27/2025 7:35 AM EDT Narrative 03/11/2025 8:45 PM EDT [facility] [address] [place] [address] Mammography Report Signed Patient: Gina Pate MR#: [id number] : 1955 Acct:[id number] Age/Sex: 69 / F ADM Date: 02/27/25 Loc: HO.MAMMO Attending Dr: Cecy Pabon CAUSTIC CRESYLATE SHIFT SUPERINTENDENT Ordering Physician: Cecy Pabon Results: 1Negat nupur Date of Service: 02/27/25 Follow Up: 1 Year From Orig inal Mammogram Procedure(s): MM tomosynthesis screening BI Accession Number(s): [id number] cc: Cecy Pabon CAUSTIC CRESYLATE SHIFT SUPERINTENDENT EXAMINATION: MM SCREENING DIGITAL BREAST TOMOSYNTHESIS, BILATERAL [...] Miesha Chowdary DO 03/11/2025 08:42 PM EDT Dictated By: Miesha Chowdary DO Signed By: <Electronically signed by Miesha Chowdary DO in OV> 03/11/252041 DD/ TD/TT: 02/27/25 0749 Mathematics Lecturer: Procedure Note Donotuseinterpreter, Image - 03/11/2025 [facility] [address] [place] [address] [place] [address] Mammography Report Signed Patient: Geeta PateR#: [id number] : 1955cct:[id number] Age/Sex: 69 / FADM Date: 02/27/25 Loc: HO.MAMMO Attending Dr: Cecy Pabon CAUSTIC CRESYLATE SHIFT SUPERINTENDENT Ordering Physician: Cecy PabonPResults: 1Nsofit nupur Date of Service: 02/27/25Follow Up: 1 Year From [facility] ina Mammogram Procedure(s): MM tomosynthesis screening BI Accession Number(s): [id number] cc: Cecy Pabon CAUSTIC CRESYLATE SHIFT SUPERINTENDENT EXAMINATION: MM SCREENING DIGITAL BREAST TOMOSYNTHESIS, BILATERAL [...] Miesha Chowdary DO 03/11/2025 08:42 PM EDT Dictated By: Miesha Chowdary DO Signed By: <Electronically signed by Miesha Chowdary DO in OV> 03/11/252041 DD/ 0735 TD/TT: 02/27/25 0749 Mathematics Lecturer: Cecy SINGH IMG BI PROCEDURES Edited Resul t - Final * Hepatitis C Viral RNA, Quantitative, Real-Time PCR (12/14/2024 8:36 AM EDT) Hepatitis C Viral Load <15 NOT DETECTED NOT DETECTED IU/mL [facility] HCV Log PCR <1.18 NOT DETECTED NOT DETECTED Log IU/mL [facility] Comment:For additional infor casey, please refer tohttp://education.[employer]/faq/BDN57d0(This link is being provided for informational/educational purposes only.)THIS TEST WAS PERFORMED AT:[facility] [place] [phone] HOLBROOK MD Blood 12/14/2024 8:36 AM EDT 12/14/2024 2:13 PM EDT Cecy Pabon CAUSTIC CRESYLATE SHIFT SUPERINTENDENT LAB BLOOD ORDERABLES Final Res ult Performing Organization Address [facility] de Phone Number [facility] [address] [place] [address] [phone] * (ABNORMAL) Lipid Panel, Standard (12/14/2024 8:36 AM EDT) Triglycerides 157(H) <150 mg/dL [facility] Comment:Desirable Triglyceri de: less than 150 mg/dLBorderline High Triglyceride 150-199 mg/dLHigh Triglyceride: 200-499 mg/dLVery High Triglyceride: greater than or equal to 5OO mg/dL Cholesterol 177 <200 mg/dL [facility] Comment:Desirable Cholestero l: less than 200 mg/dLBorderline High Cholesterol: 200-239 mg/dLHigh Cholesterol: greater than 239 mg/dL LDL Cholesterol Calculated 96 <100 mg/dL [facility] Comment:Desirable LDL: less than 100 mg/dLNear Optimal/Above Optimal LDL: 110- 129 mg/dLBorderline High LDL: 130-159 mg/dLHigh LDL: 160-189 mg/dLVery High LDL: greater than or equal to 190 mg/dL HDL Cholesterol 50 >40 mg/dL [facility] Comment:Desirable HDL: great er than 40 mg/dL Note: This HDL assay may give artificially low results in patients with liver disease. Blood Venous blood specimen / Unknown 12/14/2024 8:36 AM EDT 12/14/2024 2:13 PM EDT us Cecy Pabon CAUSTIC CRESYLATE SHIFT SUPERINTENDENT LAB BLOOD ORDERABLES Final Res ult Performing Organization Address City/[facility]/ZIP Co de Phone Number [facility] [address] [place] [address] [phone] * HPV mRNA E6/E7 w/Reflex to HPV Genotypes 16, 18/45 (04/01/2023 12:00 AM EDT) HPV nRNA E6/E7 Not Detected Not Detected [facility] Comment:Methodology: Transcr iption-Mediated AmplificationThis assay detects E6/E7 viral messenger RNA (mRNA) from 14high-risk HPV types (16,18,31,33,35,39,45,51,52,56,58,59,66,68).Cervical sources are required for HPV testing.If a vaginal source from a patient who has had atotal hysterectomy with removal of cervix wassubmitted, please contact the testing laboratoryfor alternative testing options.For additional information, please refer tohttp://education.[employer]/faq/BTW334g1(This link if provided for information/educational purposes only.)THIS TEST WAS PERFORMED AT:[facility] [place] [phone] HOLBROOK MD HPV mRNA E6/E7 [facility] HPV 16 RNA [facility] HPV 18/45 RNA [facility] 04/01/2023 04/02/2023 10: 15 AM EDT Rylee MCCONNELL LAB CYTOLOGY ORDERABLES F inal Result [facility] [address] [place] [address] [phone] * Pap Smear (04/01/2023 12:00 AM EDT) 04/01/2023 04/02/2023 10: 15 AM EDT Narrative [facility] - 04/24/2023 4:11 PM EDT ----- ------- Name: Gina Pate Age/Sex: 67/F : 1955 Unit#: [id number] Attend Dr: RYLEE ADAM CNM Re04/01/23 Status: DEP [facility] ----- ------- SPEC : [id number] RECD: 04/02/23-1015 STATUS: GEO GEORGETTE NUM: [id number] KEE: 04/01/23-[address]: RYLEE ADAM ENTERED: 04/05/23-1315 SP TYPE: Pap Smr OTHR DR: ORDERED: Pap Smear Interpretation Satisfactory for evaluation. Negative for intraepithelial lesion or malignancy. Atrophic. HPV mRNA E6/E7: NOT DETECTED This assay detects E6/E7 viral messenger RNA (mRNA) from 14 high-risk HPV types (16, 18, 31, 33, 35, 39, 45, 51, 52, 56, 58, 59, 66, 68) HPV testing performed by [address] [employer], [place], [place]. See reference laboratory portion of the EMR for entire report. Clinical Information LMP:Menopausal Previous PAP test:2017, ASCUS Other history:SAMI I Material Received ThinPrep-Cervical ----- ------- Signed (signature on file) Ranjana Patel 04/24/23 1611 ----- ------- END OF REPORT us Rylee Adam [facility] LAB CYTOLOGY ORDERABLES F inal Result [facility] [address] [place] [phone] from Last 3 Months or Most Recently Relevant to Health Maintenance Insurance [facility] C[employer] HOME OPTIONS (HMO D-SNP) [place] [id number] DENTAL [facility] Care Teams Supervisor Particleboard Relationship Specialty Start Date End Date Cecy Pabon FNP [address] [place] [id number] PCP - General Family Medicine 09/10/22
== END 2025-05-31 15:18 | disposition home or self-care (01) ==
LOC: HO.HWS 14:25
PROVIDERS: PCP Registered Nurse; Visit Provider Advanced Practice Midwife
DX: Z01.419 Encounter for gynecological examination (general) (routine) without abnormal findings (principal); N90.89 Other specified noninflammatory disorders of vulva and perineum; N95.2 Postmenopausal atrophic vaginitis
CPT/HCPCS: 99212; 99397; 99459